=== PATIENT | male | born 1960 | race Two or more races ===

== ENCOUNTER 2020-03-29 17:06 | Inpatient (IN) | payer SELFPAY ==
[~2020-03-29] VITALS: Ht 170.2 cm; Wt 88.5 kg
--- NOTE | 2020-03-29 10:16 | NUR ---
NURSE NOTES: Contacted Dr. Gleason for admission orders; relayed pt status, abnormal labs, and ER meds given; awaiting MD response.
[2020-03-29 17:25] VITALS: BP 146/85
--- NOTE | 2020-03-29 17:25 | NUR ---
ED Nurse Note: Pt BIBA from home. He had tested + for COVID 10 days ago. Pt had SOB and was 78% RA in ambulance, and is 95% 10L NRB. Pt is alert and orientedx4, ambulatory. RR 26. Pt blood drawn and labs sent down. COVID test sent. EKG done.
[2020-03-29 17:38] LABS: HEMATOCRIT 44.7 % (42.0-52.0); HEMOGLOBIN 14.5 G/DL (14.2-18.0); MEAN CORPUSCULAR VOLUME 94 FL (80-99); PLATELET COUNT 213 K/UL (150-450); RED BLOOD COUNT 4.75 M/UL (4.70-6.10); RED CELL DISTRIBUTION WIDTH 14.3 % (11.6-14.8); WHITE BLOOD COUNT 11.6 K/UL (4.8-10.8)
[2020-03-29 17:41] LABS: BASOPHILS % (AUTO) 0.2 % (0.0-2.0); LYMPHOCYTES % (AUTO) 9.6 % (20.0-45.0); MONOCYTES % (AUTO) 4.6 % (1.0-10.0); NEUTROPHILS % (AUTO) 85.5 % (45.0-75.0)
[2020-03-29 18:12] LABS: ALANINE AMINOTRANSFERASE 69 U/L (12-78); ALBUMIN 2.3 G/DL (3.4-5.0); ALBUMIN/GLOBULIN RATIO 0.4 (1.0-2.7); ALKALINE PHOSPHATASE 99 U/L (46-116); ASPARTATE AMINO TRANSFERASE 94 U/L (15-37); BILIRUBIN,TOTAL 0.6 MG/DL (0.2-1.0); BLOOD UREA NITROGEN 11 mg/dL (7-18); CALCIUM 8.9 MG/DL (8.5-10.1); CHLORIDE 93 MMOL/L (98-107); FERRITIN 394 NG/ML (8-388); LACTATE DEHYDROGENASE 397 U/L (81-234); POTASSIUM 4.3 MMOL/L (3.5-5.1); SODIUM 130 MMOL/L (136-145)
[2020-03-29] MEDS ORDERED: cefTRIAXone 1 GM in NS 55 ML IV ONE (18:15)
[2020-03-29] MEDS ORDERED: Azithromycin 500 MG in NS 275 ML IVPB ONE (18:15)
[2020-03-29] MEDS ORDERED: dexAMETHasone 10mg/ml Inj IV ONE (18:15)
[2020-03-29] MEDS ORDERED: Enoxaparin 40mg Inj SUBQ ONE (18:15)
[2020-03-29 18:23] LABS: CARBON DIOXIDE 27 MMOL/L (21-32)
--- NOTE | 2020-03-29 19:06 | NUR ---
contact info Jorge L Noe [phone]
--- NOTE | 2020-03-29 19:22 | NUR ---
HAND-OFF: Report given to Leeanne CANALES.
--- NOTE | 2020-03-29 19:35 | NUR ---
ED Nurse Note: Recieved report from gonzalez Ceja to resume care, pt in bed in Covid isolation awake, alert and oriented x 4, pt is on cardiac monitoring, has patent IV line in left ac with IV antibiotics infusing, tolerating well, pt is on 10L NRB mask with 02 sat =97%, sob noted on exertion and when speaking, pt is able to move about, denies chest pain or any pain, pt is waiting for room for hospital admission, will resume care as ordered with close continuous monitoring.
--- NOTE | 2020-03-29 19:35 | Emergency Room Report ---
History of Present Illness General Chief Complaint: Dyspnea/Respdistress Source: Patient Present Illness HPI 59-year-old male presents for shortness of breath. Brought in by EMS from home. Tested positive for Covid previously. Short of breath for the last 4 days. Hypoxic on room air. Placed on nonrebreather. States he has a cough. Denies chest pain. No other aggravating relieving factors. 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 COVID-19 Screening: Positive COVID-19 COVID-19 Testing Source: NASAL Patient History Past Medical History: DM Past Surgical History: none Pertinent Family History: none Social History: Denies: smoking, alcohol use, drug use Immunizations: UTD Reviewed Nursing Documentation: PMH: Agreed; PSxH: Agreed Nursing Documentation-PMH Hx Diabetes: Yes Review of Systems All Other Systems: negative except mentioned in HPI Physical Exam Vital Signs Date Time Temp Pulse Resp B/P (MAP) Pulse Ox O2 Delivery O2 Flow Rate FiO2 03/29/20 17:00 98.4 94 18 190/106 (134) 96 Non-Rebreather 15.0 03/29/20 17:25 96 Sp02 EP Interpretation: reviewed, normal General Appearance: alert, GCS 15, non-toxic, mild distress Head: normocephalic, atraumatic Eyes: bilateral eye normal inspection, bilateral eye PERRL ENT: hearing grossly normal, normal pharynx, no angioedema, normal voice Neck: full range of motion, supple/symm/no masses Respiratory: chest non-tender, normal breath sounds, crackles, speaking full sentences Cardiovascular #1: regular rate, rhythm, no edema Cardiovascular #2: 2+ carotid (R), 2+ carotid (L), 2+ radial (R), 2+ radial (L), 2+ dorsalis pedis (R), 2+ dorsalis pedis (L) Gastrointestinal: normal bowel sounds, non tender, soft, non-distended, no guarding, no rebound Rectal: deferred Genitourinary: normal inspection, no CVA tenderness Musculoskeletal: back normal, normal range of motion, gait/station normal, non- tender Neurologic: alert, motor strength/tone normal, oriented x3, sensory intact, res ponsive, speech normal Psychiatric: judgement/insight normal, memory normal, mood/affect normal, no suicidal/homicidal ideation Reflexes: 3+ bicep (R), 3+ bicep (L), 3+ tricep (R), 3+ tricep (L), 3+ knee (R), 3+ knee (L) Skin: other - see nursing notes Lymphatic: no adenopathy Procedures Critical Care Time Critical Care Time i. I feel this is a highly complex case requiring extensive working including EKG/Rhythm strip, Xray/CT/US, Blood/urine lab work, repeat exams while in ED, and administration of strong opiates/narcotics for pain control, admission to hospital or close patient follow up. Total time: 45 min bedside evaluation and treatment excludes procedures (EKG). Reason for critical care: Hypoxia, Covid positive, respiratory distress Possible complications: hypotension, hypertension, IL, shock, arrhythmias, metabolic acidosis, end organ damage, respiratory failure. Interventions: Labs, EKG, chest x-ray, Decadron, Lovenox, antibiotics, nonrebreather, reassessment of vitals Course: Patient presenting with hypoxia, shortness of breath. Covid positive. Chest x-ray shows bilateral patchy opacities. O2 sats improved on n onrebreather. Given Decadron. Given Lovenox. Given broad-spectrum antibiotics. O2 sats improved. Patient resting comfortably Consultations: nursing staff, EMS, family Performed by: Dr Martin Tolerated well condition = serious j. because of unstable vital signs this patient had a condition that could potentially threaten life or limb. I feel this is a critical patient who required my full attention while patient was considered critical. Total Critical Care Time excluding procedures was greater than 45 minutes Medical Decision Making Diagnostic Impression: Primary Impression: COVID-19 Additional Impressions: Pneumonia Qualified Codes: J18.9 - Pneumonia, unspecified organism Respiratory distress ER Course Hospital Course 59-year-old male presents with hypoxia. Covid positive Differential diagnoses include: Pneumonia, CHF exacerbation, pneumothorax, fluid overload Clinical course Patient placed on stretcher. In isolation. I wore full PPE. On cardiac cath tech with hypoxia on room . After initial history and physical, I ordered labs, IV fluids, EKG, chest x-ray, blood cultures, UA. Patient placed on nonrebreather with O2 saturation improving Labs -leukocytosis noted, hemoglobin/hematocrit stable, electrolytes okay D- dimer elevated, inflammatory markers elevated EKGnormal sinus rhythm no acute ischemic changes interpreted by me CXR -bilateral patchy opacities Patient resting comfortably on nonrebreather. No tachypnea. No signs of distress. Given Lovenox. Given Decadron. Given broad-spectrum antibiotics Case discussed with Dr. Mike and he agreed to the patient to his service for further care and support I feel this is a highly complex case requiring extensive working including EKG/Rhythm strip, Xray/CT/US, Blood/urine lab work, repeat exams while in ED, and administration of strong opiates/narcotics for pain control, admission to hospital or close patient follow up. Diagnosis -COVID-19, pneumonia, respiratory distress Patient admitted to telemetry in serious condition Laboratory Tests Test 03/29/20 17:22 03/29/20 19:00 White Blood Count 11.6 K/UL (4.8-10.8) H Red Blood Count 4.75 M/UL (4.70-6.10) Hemoglobin 14.5 G/DL (14.2-18.0) Hematocrit 44.7 % (42.0-52.0) Mean Corpuscular Volume 94 FL (80-99) Mean Corpuscular Hemoglobin 30.5 PG (27.0-31.0) Mean Corpuscular Hemoglobin Concent 32.4 G/DL (32.0-36.0) Red Cell Distribution Width 14.3 % (11.6-14.8) Platelet Count 213 K/UL (150-450) Mean Platelet Volume 7.7 FL (6.5-10.1) Neutrophils (%) (Auto) 85.5 % (45.0-75.0) H Lymphocytes (%) (Auto) 9.6 % (20.0-45.0) L Monocytes (%) (Auto) 4.6 % (1.0-10.0) Eosinophils (%) (Auto) 0.0 % (0.0-3.0) Basophils (%) (Auto) 0.2 % (0.0-2.0) Prothrombin Time 11.4 SEC (9.30-11.50) Prothromb Time International Ratio 1.0 (0.9-1.1) Activated Partial Thromboplast Time 28 SEC (23-33) D-Dimer 0.95 mg/L FEU (0.00-0.49) H Sodium Level 130 MMOL/L (136-145) L Potassium Level 4.3 MMOL/L (3.5-5.1) Chloride Level 93 MMOL/L (98-107) L Carbon Dioxide Level 27 MMOL/L (21-32) Blood Urea Nitrogen 11 mg/dL (7-18) Creatinine 1.0 MG/DL (0.55-1.30) Estimat Glomerular Filtration Rate > 60 mL/min (>60) Glucose Level 143 MG/DL (74-106) H Lactic Acid Level 1.20 mmol/L (0.4-2.0) Calcium Level 8.9 MG/DL (8.5-10.1) Ferritin 394 NG/ML (8-388) H Total Bilirubin 0.6 MG/DL (0.2-1.0) Aspartate Amino Transf (AST/SGOT) 94 U/L (15-37) H Alanine Aminotransferase (ALT/SGPT) 69 U/L (12-78) Alkaline Phosphatase 99 U/L (46-116) Lactate Dehydrogenase 397 U/L (81-234) H Troponin I 0.000 ng/mL (0.000-0.056) C-Reactive Protein, Quantitative 27.3 mg/dL (0.00-0.90) H Pro-B-Type Natriuretic Peptide 121 pg/mL (0-125) Total Protein 8.1 G/DL (6.4-8.2) Albumin 2.3 G/DL (3.4-5.0) L Globulin 5.8 g/dL Albumin/Globulin Ratio 0.4 (1.0-2.7) L Lipase 346 U/L (73-393) Urine Color Pending Urine Appearance Pending Urine pH Pending Urine Specific [place] Pending Urine Protein Pending Urine Glucose (UA) Pending Urine Ketones Pending Urine Blood Pending Urine Nitrite Pending Urine Bilirubin Pending Urine Urobilinogen Pending Urine Leukocyte Esterase Pending EKG Diagnostic Results Troponin ordered: Yes Rate: normal Rhythm: NSR ST Segments: no acute changes ASA given to the pt in ED: No Rhythm Strip Diag. Results EP Interpretation: yes Rhythm: NSR, no PVC's, no ectopy Chest X-Ray Diagnostic Results Chest X-Ray Diagnostic Results : Chest X-Ray Ordered: Yes # of Views/Limited/Complete: 1 View Indication: Shortness of Breath EP Interpretation: Yes Interpretation: no effusion, no pneumothorax, other - Bilateral patchy opacities Impression: Other - COVID pneumonia Electronically Signed by: Electronically signed by Jean-Paul Martin MD Last Vital Signs Date Time Temp Pulse Resp B/P (MAP) Pulse Ox O2 Delivery O2 Flow Rate FiO2 03/29/20 17:25 98.4 92 26 146/85 96 Non-Rebreather 10.0 03/29/20 17:25 96 Status: improved Disposition: ADMITTED INPATIENT Condition: Serious Referrals: NOT CHOSEN IPA/,REFERRING (PCP) Jean-Paul Martin MD Mar 29, 2020 19:34
[2020-03-29 19:45] VITALS: BP 129/90
[2020-03-29 20:25] LABS: APPEARANCE,URINE CLEAR; BILIRUBIN, URINE NEGATIVE (NEGATIVE); GLUCOSE, URINE (UA) NEGATIVE (NEGATIVE); KETONES,URINE NEGATIVE (NEGATIVE); LEUKOCYTE ESTERASE ,URINE NEGATIVE (NEGATIVE); NITRITE,URINE NEGATIVE (NEGATIVE); PH,URINE 7 (4.5-8.0); PROTEIN,URINE 3+ (NEGATIVE); UROBILINOGEN,URINE 4 MG/DL (0.0-1.0)
[2020-03-29 20:28] LABS: COLOR,URINE YELLOW
--- NOTE | 2020-03-29 20:36 | NUR ---
NURSE NOTES: Received report from ALLY Fallon from ER; admitted from home; COVID + 10 days ago; PCR swab done @ ER today; awaiting results; AOX4, on Non-rebreather mask 10L with O2 sat 96%; With IV site on R AC 18 gauge, intact and patent saline locked; sinus rhythm; awaiting to receive pt.
--- NOTE | 2020-03-29 20:55 | NUR ---
ED Nurse Note: Pt has room ready for admission, resport called to floor nurse, pt belongings completed and signed, pt has all belongings with him, pt is awake and alert, IV site intact and patent, fluids completed, pt denies chest pain or any pain, remains on 02 10L via NRB mask and Covid Isolation precautions, pt taken to unit via lizzy with RN, ER-Tech and with ACLP protocols, nad noted during pt transport.
[2020-03-29 21:00] VITALS: BP_SYST 134; BP_SYST 141; BP_DIAS 69; BP_DIAS 77
--- NOTE | 2020-03-29 21:00 | NUR ---
NURSE NOTES: Received pt from ER with 2 staff via [facility]; pt able to transfer via supervision from [facility] to bed; On O2 therapy via non-rebreather mask 10L, in no acute distress; AOX4, hungarian speaking with some Irish; denies any pain nor discomfort; belongings accounted for; cellphone and museum exhibit technician at bedside; telemetry monitor placed, sinus rhythm; with peripheral IV site on R and L AC 18 gauge, s/l, both intact and patent; pt verbalized he wants to be full code; per pt he ambulates; continent using urinal; skin intact; HOB elevated; v/s: 100.8z-60-83-134/77-95% O2 saturation. Call light within reach; bed locked and in low position; side rails x 2; will continue to monitor.
--- NOTE | 2020-03-29 22:18 | NUR ---
NURSE NOTES: Received admission orders from Dr. Gleason; regular diet, routine and PRN medications, IV NS @ 70 ml/hr, carried out; will continue to monitor pt.
[2020-03-30] VITALS: BP 120/77
[2020-03-30] MEDS ORDERED: Enoxaparin 80mg Inj SUBQ SCH (03:00)
[2020-03-30 04:00] VITALS: BP 133/82
[2020-03-30] MEDS: NovoLOG Insulin Flexpen SUBQ SCH ×4 (06:20→21:24)
[2020-03-30] MEDS ORDERED: NovoLOG Insulin Flexpen SUBQ SCH (06:30)
--- NOTE | 2020-03-30 07:00 | NUR ---
NURSE HAND-OFF REPORT: Important Events on Shift: admitted from ER 2100 FOR covid+, PNA, hypoxia; IV site R and L AC 18 gauge; R AC infusing with IV NS @ 70ML/HR, L AC s/l; accuchecks ACHS with s/s coverage Novolog; non-rebreather 10L saturating 95% Patient Status: AOX4, Hungarian speaking Diet: Regular Pending Orders: N Pending Results/Labs:CXR Pending MD notification:N Latest Vital Signs: Temperature 96.8 , Pulse 68 , B/P 133 /82 , Respiratory Rate 28 , O2 SAT 95 , Non-Rebreather, O2 Flow Rate 10.0 . Vital Sign Comment: stable EKG Rhythm: Sinus Rhythm Rhythm change?: N MD Notified?: - MD Response: Latest Park Fall Score: 20 Fall Risk: Low Risk Safety Measures: Call light Within Reach, Bed Alarm Zone 1, Side Rails Side Rails x2, Bed position Low and Locked. Fall Precautions: Yellow Socks Yellow Gown Patient Fall Education Report given to ALLY Franklin.
--- NOTE | 2020-03-30 07:30 | NUR ---
NURSE NOTES: Received report from ALLY Amador. Pt is stable and resting in bed. Sitting high fowlers eating breakfast independently. Pt on NRB at 10 LPM with no s/s or complaint of distress at this time. Pt RAC 18g, running N at 70cc, asymptomatic and intact. LAC 18, asymptomatic and intact. Pt bed low and locked, call light in reach and bed alarm on. pt verbalized understanding to call for help.
[2020-03-30 08:00] VITALS: BP 144/85
[2020-03-30] MEDS ORDERED: Enoxaparin 40mg Inj SUBQ SCH (09:00)
[2020-03-30] MEDS: Ascorbic Acid 500mg tab ORAL SCH (09:12)
[2020-03-30] MEDS: Vitamin D 1000 units Tab ORAL SCH (09:12)
[2020-03-30] MEDS: Zinc Sulfate 220mg ORAL SCH (09:12)
--- NOTE | 2020-03-30 09:19 | NUR ---
CASE MANAGEMENT:REVIEW 59 YR OLD MALE BIBA FROM HOME PMH: TESTED POSITIVE FOR COVID CC: SOB X4 DAYS SI: COVID PNA. RESPIRATORY DISTRESS 100.1 94 18 190/106 96% ON 15L NRB WBC+11.6 NA-130 GLUCOSE+143 IS: IV AZITHROMYCIN X1 IV DECADRON X1 IV ROCEPHIN X1 LOVENOX SQ X1 BLOOD CX CHEST XRAY : TO TELEMETRY STATUS DCP: FROM HOME
[2020-03-30] MEDS: Enoxaparin 80mg Inj SUBQ SCH ×2 (09:26→20:16)
--- NOTE | 2020-03-30 09:38 | NUR ---
NURSE NOTES: Pt ambulated to bathroom w/ assist. SOB at rest and SOB on E. Pt slow to return to optimal oxygenation. 83%-88%. Pt now on 15LPM NRB at 92% labored breathing. Md to be notified. Asked for ABG. awaiting page back.
[2020-03-30] MEDS ORDERED: MUCINEX600 MG PO (11:12)
[2020-03-30] MEDS ORDERED: VITAMIN D325 MC1 PO (11:12)
[2020-03-30 11:47] VITALS: BP 138/77
--- NOTE | 2020-03-30 14:14 | Diagnostic Imaging Report ---
Indication: Shortness of breath Technique: One view of the chest Comparison: none Findings: There are fairly extensive bilateral streaky and patchy infiltrates. The heart is borderline enlarged. The pleural spaces are clear. Impression: Bilateral infiltrates, likely multifocal pneumonia, quite possibly viral
[2020-03-30 16:00] VITALS: BP 133/76
[2020-03-30] MEDS ORDERED: Loading Dose:Remdesivir 200mg/NS 210ml IV SCH ×2 (17:00)
--- NOTE | 2020-03-30 17:49 | NUR ---
NURSE HAND-OFF REPORT: Important Events on Shift: NRB up to 15LPM// desaturates to mid 80s with amb, per Dr Smallwood ok to amb// on remdisivir Patient Status: fc, stable Diet: regular diet Pending Orders: Pending Results/Labs: Pending MD notification: Latest Vital Signs: Temperature 97.3 , Pulse 77 , B/P 133 /76 , Respiratory Rate 22 , O2 SAT 94 , Non-Rebreather, O2 Flow Rate 15.0 . Vital Sign Comment: EKG Rhythm: Sinus Rhythm Rhythm change?: N MD Notified?: - MD Response: Latest Park Fall Score: 20 Fall Risk: Low Risk Safety Measures: Call light Within Reach, Bed Alarm Zone 2, Side Rails Side Rails x2, Bed position Low and Locked. Fall Precautions: Yellow Socks Yellow Gown Door Sign Patient Fall Education Report to be given. Addendum: 03/30/20 at 1901 by Noemi Ruiz RN RN Pt is stable, report given to ALLY Dia
[2020-03-30] MEDS ORDERED: cefTRIAXone 1 GM in D5W 55 ML IVPB SCH (18:00)
--- NOTE | 2020-03-30 19:14 | NUR ---
NURSE NOTES: Pt received from ALLY Franklin. Pt is resting comfortably in bed and denies any pain. Pt is A/Ox4 and ambulatory with SOB upon exertion. Pt is on cardiac monitoring SR and asymptomatic. Pt has NRB 15 LPM sating well and desaturating upon exertion. Pt has RAC 18G running NS 70 ml/hr and LAC 18G SL both patent with skin dry and intact. Bed is locked and in lowest position with call light within reach. Will continue to monitor.
[2020-03-30 20:00] VITALS: BP 115/73
[2020-03-31] VITALS: BP 128/67
[2020-03-31] MEDS: Levemir Flexpen SUBQ SCH ×2 (00:30→21:16)
[2020-03-31 04:00] VITALS: BP 119/62
[2020-03-31] MEDS: NovoLOG Insulin Flexpen SUBQ SCH ×4 (05:10→21:17)
--- NOTE | 2020-03-31 06:43 | NUR ---
NURSE HAND-OFF REPORT: Important Events on Shift:Pt continued scheduled medications. Pt reports difficulty breathing with exertion. Patient Status: Stable Diet: Regular Pending Orders: Pending Results/Labs:AM Labs Pending MD notification: Latest Vital Signs: Temperature 96.8 , Pulse 64 , B/P 119 /62 , Respiratory Rate 24 , O2 SAT 90 , Non-Rebreather, O2 Flow Rate 15.0 . Vital Sign Comment: VSS EKG Rhythm: Sinus Rhythm Rhythm change?: N MD Notified?: - MD Response: Latest Park Fall Score: 20 Fall Risk: Low Risk Safety Measures: Call light Within Reach, Bed Alarm Zone 2, Side Rails Side Rails x2, Bed position Low and Locked. Fall Precautions: Yellow Socks Yellow Gown Door Sign Patient Fall Education Report given to ALLY Franklin.
[2020-03-31 06:59] LABS: HEMATOCRIT 42.7 % (42.0-52.0); HEMOGLOBIN 13.9 G/DL (14.2-18.0); MEAN CORPUSCULAR VOLUME 96 FL (80-99); PLATELET COUNT 268 K/UL (150-450); RED BLOOD COUNT 4.45 M/UL (4.70-6.10); RED CELL DISTRIBUTION WIDTH 14.8 % (11.6-14.8)
--- NOTE | 2020-03-31 06:59 | NUR ---
NURSE NOTES: Received report from ALLY Dia. Pt is stable and resting in bed, sleeping. 97%spo2, tachypnea. Pt on NRB at 15 LPM with no s/s or complaint of distress at this time. Pt RAC 18g, running N at 70cc, asymptomatic and intact. LAC 18, asymptomatic and intact. Pt bed low and locked, call light in reach and bed alarm on. pt verbalized understanding to call for help. Breakfast bedside for Pt.
[2020-03-31 07:11] LABS: ALANINE AMINOTRANSFERASE 51 U/L (12-78); ALBUMIN 1.9 G/DL (3.4-5.0); ALBUMIN/GLOBULIN RATIO 0.3 (1.0-2.7); ALKALINE PHOSPHATASE 80 U/L (46-116); ANION GAP 9 mmol/L (5-15); ASPARTATE AMINO TRANSFERASE 51 U/L (15-37); BILIRUBIN,TOTAL 0.2 MG/DL (0.2-1.0); BLOOD UREA NITROGEN 22 mg/dL (7-18); CALCIUM 8.6 MG/DL (8.5-10.1); CARBON DIOXIDE 25 MMOL/L (21-32); CHLORIDE 102 MMOL/L (98-107); CREATININE 0.9 MG/DL (0.55-1.30); SODIUM 136 MMOL/L (136-145)
[2020-03-31 08:00] VITALS: BP 114/72
[2020-03-31] MEDS: Ascorbic Acid 500mg tab ORAL SCH (08:01)
[2020-03-31] MEDS: Vitamin D 1000 units Tab ORAL SCH (08:02)
[2020-03-31] MEDS: Zinc Sulfate 220mg ORAL SCH (08:02)
[2020-03-31] MEDS: Enoxaparin 80mg Inj SUBQ SCH ×2 (08:05→20:22)
--- NOTE | 2020-03-31 10:00 | NUR ---
NURSE NOTES: Pt sitting up in chair with bedside table. Pt is stable on 15 LPM NRB, 97% spo2, 22-24RR. Pt belongings in reach, call light in reach. Verbalized understanding to call for help.
[2020-03-31 11:40] VITALS: BP 120/67
[2020-03-31] MEDS: guaiFENesin /DM 10ml syrup ORAL PRN (11:55)
--- NOTE | 2020-03-31 12:46 | Infectious Diseases Prog Note ---
Assessment/Plan Assessment/Plan A; Severe COVID19 pneumonia Hypoxemia DM Lymphocytopenia P: Continue Remdesivir Continue Dexamethasone Subjective ROS Limited/Unobtainable: No Respiratory: Reports: shortness of breath, dry cough Cardiovascular: Reports: chest pain Gastrointestinal/Abdominal: Reports: no symptoms Genitourinary: Reports: no symptoms Allergies: Coded Allergies: No Known Allergies (Unverified , 03/29/20) Objective Last 24 Hour Vital Signs Date Time Temp Pulse Resp B/P (MAP) Pulse Ox O2 Delivery O2 Flow Rate FiO2 03/31/20 11:40 98.6 71 21 120/67 (84) 98 03/31/20 09:00 Non-Rebreather 15.0 Non-Rebreather 15.0 03/31/20 08:00 98.6 66 23 114/72 (86) 91 03/31/20 08:00 61 03/31/20 04:00 64 03/31/20 04:00 96.8 68 24 119/62 (81) 90 03/31/20 00:00 65 03/31/20 00:00 97.3 65 22 128/67 (87) 92 03/30/20 21:00 Non-Rebreather 15.0 Non-Rebreather 15.0 03/30/20 20:00 73 03/30/20 20:00 97.3 66 24 115/73 (87) 91 03/30/20 16:00 77 03/30/20 16:00 97.3 72 22 133/76 (95) 94 Height (Feet): 5 Height (Inches): 7.00 Weight (Pounds): 195 HEENT: mucous membranes moist Respiratory/Chest: other Cardiovascular: normal rate Abdomen: soft, non tender Extremities: no edema Neurologic/Psychiatric: alert, oriented x 3, responsive Microbiology Date/Time Source Procedure Growth Status 03/29/20 17:22 Blood Blood Culture - Preliminary NO GROWTH AFTER 24 HOURS Resulted 03/29/20 17:07 Nasopharynx Coronavirus COVID-19 PCR (VANDANA) - Final Complete 03/29/20 17:07 Blood Blood Culture - Preliminary NO GROWTH AFTER 24 HOURS Resulted Laboratory Tests Test 03/30/20 15:57 03/30/20 17:00 03/30/20 20:39 03/31/20 04:50 POC Whole Blood Glucose 277 MG/DL (74-106) H 258 MG/DL (74-106) H Arterial Blood pH 7.440 (7.350-7.450) Arterial Blood Partial Pressure CO2 35.9 mmHg (35.0-45.0) Arterial Blood Partial Pressure O2 109.0 mmHg (75.0-100.0) H Arterial Blood HCO3 23.8 mmol/L (22.0-26.0) Arterial Blood Oxygen Saturation 97.9 % (95-100) Arterial Blood Base Excess 0.1 (-2-2) Eliazar Test Positive White Blood Count 14.0 K/UL (4.8-10.8) H Red Blood Count 4.45 M/UL (4.70-6.10) L Hemoglobin 13.9 G/DL (14.2-18.0) L Hematocrit 42.7 % (42.0-52.0) Mean Corpuscular Volume 96 FL (80-99) Mean Corpuscular Hemoglobin 31.2 PG (27.0-31.0) H Mean Corpuscular Hemoglobin Concent 32.6 G/DL (32.0-36.0) Red Cell Distribution Width 14.8 % (11.6-14.8) Platelet Count 268 K/UL (150-450) Mean Platelet Volume 7.3 FL (6.5-10.1) Neutrophils (%) (Auto) % (45.0-75.0) Lymphocytes (%) (Auto) % (20.0-45.0) Monocytes (%) (Auto) % (1.0-10.0) Eosinophils (%) (Auto) % (0.0-3.0) Basophils (%) (Auto) % (0.0-2.0) Differential Total Cells Counted 100 Neutrophils % (Manual) 91 % (45-75) H Lymphocytes % (Manual) 7 % (20-45) L Monocytes % (Manual) 2 % (1-10) Eosinophils % (Manual) 0 % (0-3) Basophils % (Manual) 0 % (0-2) Band Neutrophils 0 % (0-8) Platelet Estimate Adequate Platelet Morphology Normal Red Blood Cell Morphology Normal Sodium Level 136 MMOL/L (136-145) Potassium Level 5.0 MMOL/L (3.5-5.1) Chloride Level 102 MMOL/L (98-107) Carbon Dioxide Level 25 MMOL/L (21-32) Anion Gap 9 mmol/L (5-15) Blood Urea Nitrogen 22 mg/dL (7-18) H Creatinine 0.9 MG/DL (0.55-1.30) Estimat Glomerular Filtration Rate > 60 mL/min (>60) Glucose Level 164 MG/DL (74-106) H Hemoglobin A1c 8.4 % (4.3-6.0) H Calcium Level 8.6 MG/DL (8.5-10.1) Magnesium Level 2.5 MG/DL (1.8-2.4) H Total Bilirubin 0.2 MG/DL (0.2-1.0) Direct Bilirubin < 0.1 MG/DL (0.0-0.3) Aspartate Amino Transf (AST/SGOT) 51 U/L (15-37) H Alanine Aminotransferase (ALT/SGPT) 51 U/L (12-78) Alkaline Phosphatase 80 U/L (46-116) Total Protein 7.6 G/DL (6.4-8.2) Albumin 1.9 G/DL (3.4-5.0) L Globulin 5.7 g/dL Albumin/Globulin Ratio 0.3 (1.0-2.7) L Test 03/31/20 05:05 03/31/20 11:11 POC Whole Blood Glucose Pending 245 MG/DL (74-106) H Current Medications Medications (Trade) Dose Ordered Sig/Compa Route PRN Reason Start Time Stop Time Status Last Admin Dose Admin Acetaminophen (Tylenol) 650 mg Q4H PRN ORAL Mild Pain (Pain Scale 1-3) 03/29/20 22:45 04/28/20 22:44 Acetaminophen (Tylenol) 650 mg Q4H PRN ORAL Temp >100.5 03/29/20 22:45 04/28/20 22:44 Albuterol Sulfate (Proventil MDI) 2 puff Q4H PRN INH Shortness of Breath 03/31/20 07:00 06/29/20 06:59 Artificial Tears (Akwa-Tears) 2 drop Q2H PRN BOTH EYES Dry Eyes 03/31/20 07:00 04/30/20 06:59 Ascorbic Acid (Vitamin C) 500 mg DAILY ORAL 03/30/20 09:00 04/29/20 08:59 03/31/20 08:01 Dexamethasone Sodium Phosphate (Decadron 4mg/ml vial) 6 mg DAILY IVP 03/30/20 09:00 04/08/20 08:59 03/31/20 08:04 Dextrose (Dextrose 50%) 25 ml Q30M PRN IV Hypoglycemia 03/30/20 02:00 06/28/20 01:59 Dextrose (Dextrose 50%) 50 ml Q30M PRN IV Hypoglycemia 03/30/20 02:00 06/28/20 01:59 Enoxaparin Sodium (Lovenox) 80 mg Q12H SUBQ 03/30/20 09:00 06/28/20 08:59 03/31/20 08:05 Famotidine (Pepcid) 20 mg DAILY ORAL 03/30/20 09:00 06/28/20 08:59 03/31/20 08:02 Guaifenesin/ Dextromethorphan (Robitussin DM Syrup) 10 ml Q4H PRN ORAL For Cough 03/31/20 11:30 06/29/20 11:29 03/31/20 11:55 Insulin Aspart (NovoLOG) BEFORE MEALS AND HS SUBQ 03/30/20 06:30 06/28/20 06:29 03/31/20 11:27 Insulin Detemir (Levemir) 10 units BEDTIME SUBQ 03/31/20 00:30 06/29/20 00:29 03/31/20 00:30 Remdesivir 100 mg/ Sodium Chloride 250 ml @ 250 mls/hr Q24H IV 03/31/20 17:00 04/03/20 17:59 Sodium Chloride 1,000 ml @ 70 mls/hr [id number] IV 03/29/20 22:45 04/28/20 22:44 03/31/20 02:12 Vitamin D (Vitamin D) 1,000 unit DAILY ORAL 03/30/20 09:00 04/29/20 08:59 03/31/20 08:02 Zinc Sulfate (Zinc Sulfate) 220 mg DAILY ORAL 03/30/20 09:00 06/28/20 08:59 03/31/20 08:02 Jose Washington MD Mar 31, 2020 12:46
--- NOTE | 2020-03-31 13:00 | NUR ---
NURSE NOTES: Updated Pt son on pt condition. Son inquired health advise for his at this time. did NOT provide any medical advise at this time other than to seek medical attention as needed.
--- NOTE | 2020-03-31 13:20 | NUR ---
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
--- NOTE | 2020-03-31 13:23 | NUR ---
NURSE NOTES: Pt reports pain when breathing in. Notified Dr Mike, no new orders at this time.
[2020-03-31 16:00] VITALS: BP 131/67
[2020-03-31] MEDS: Maintenance Dose:Remdesivir 100mg/NS 230ml x 4 Doses IV SCH ×2 (16:00)
[2020-03-31] MEDS: Albuterol 90mcg Inhaler 8gm INH PRN (16:00)
--- NOTE | 2020-03-31 16:10 | NUR ---
CASE MANAGEMENT:REVIEW 03/31/20 SI: COVID PNA. RESPIRATORY DISTRESS 98.6 71 21 120/67 98% ON 15L/NRB WBC+14.0 BUN+22 IS: IV REMDESIVIR Q24 (/) IV DECADRON QD IVF@70/HR LEVEMIR SQ QHS LOVENOX SQ Q12 : TELEMETRY STATUS DCP: FROM HOME
--- NOTE | 2020-03-31 18:27 | NUR ---
NURSE HAND-OFF REPORT: Important Events on Shift: IV R hand 22g// pt reported pain at inhalation, reported to Dr Mike, [place] new orders// Patient Status: FC, stable Diet: regular diet Pending Orders: Pending Results/Labs: Pending MD notification: Latest Vital Signs: Temperature 97.5 , Pulse 71 , B/P 131 /67 , Respiratory Rate 22 , O2 SAT 95 , Non-Rebreather, O2 Flow Rate 15.0 . Vital Sign Comment: EKG Rhythm: Sinus Rhythm Rhythm change?: N MD Notified?: - MD Response: Latest Park Fall Score: 20 Fall Risk: Low Risk Safety Measures: Call light Within Reach, Bed Alarm Zone 2, Side Rails Side Rails x2, Bed position Low and Locked. Fall Precautions: Yellow Socks Yellow Gown Door Sign Patient Fall Education Report to be given. Addendum: 03/31/20 at 1917 by Noemi Ruiz RN RN Pt is stable, report given to ALLY Whitley.
--- NOTE | 2020-03-31 19:50 | NUR ---
NURSE NOTES: The patient is alert and oriented x4 [place] speaking and is presently on a non-rebreather mask @ 15 liters with SPo2 @ 93%. The patient need minimal care with his ADL's and can turn and re-position himself.The patient was noted with a Right AC 18g and right hand 22g that is patent and asymptomatic. The bed in lowest level, call light within easy reach and siderails up x2. Will continue ton monitor as indicated.
[2020-03-31 20:00] VITALS: BP 108/60
--- NOTE | 2020-03-31 23:25 | Cardiology Progress Note ---
Subjective DATE OF SERVICE: Mar 31, 2020 Still on high flow oxygen Cant sleep Glucose elevated on dexamethasone Objective Last 24 Hour Vital Signs Date Time Temp Pulse Resp B/P (MAP) Pulse Ox O2 Delivery O2 Flow Rate FiO2 03/31/20 21:00 Non-Rebreather 15.0 Non-Rebreather 15.0 03/31/20 20:00 69 03/31/20 20:00 98.6 66 17 108/60 (76) 95 03/31/20 16:00 62 03/31/20 16:00 97.5 71 22 131/67 (88) 95 03/31/20 12:00 62 03/31/20 11:40 98.6 71 21 120/67 (84) 98 03/31/20 09:00 Non-Rebreather 15.0 Non-Rebreather 15.0 03/31/20 08:00 98.6 66 23 114/72 (86) 91 03/31/20 08:00 61 03/31/20 04:00 64 03/31/20 04:00 96.8 68 24 119/62 (81) 90 03/31/20 00:00 65 03/31/20 00:00 97.3 65 22 128/67 (87) 92 HEENT: normal ENT inspection RHYTHM: NSR LUNGS: bilateral rhonchi CARDIAC: regular rhythm, normal S1 and S2 ABDOMEN: normal bowel sounds, non tender, other - obese EXTREMITIES: normal range of motion, non-tender, trace edema Laboratory Tests Test 03/31/20 04:50 03/31/20 05:05 03/31/20 11:11 03/31/20 15:59 White Blood Count 14.0 K/UL (4.8-10.8) H Red Blood Count 4.45 M/UL (4.70-6.10) L Hemoglobin 13.9 G/DL (14.2-18.0) L Hematocrit 42.7 % (42.0-52.0) Mean Corpuscular Volume 96 FL (80-99) Mean Corpuscular Hemoglobin 31.2 PG (27.0-31.0) H Mean Corpuscular Hemoglobin Concent 32.6 G/DL (32.0-36.0) Red Cell Distribution Width 14.8 % (11.6-14.8) Platelet Count 268 K/UL (150-450) Mean Platelet Volume 7.3 FL (6.5-10.1) Neutrophils (%) (Auto) % (45.0-75.0) Lymphocytes (%) (Auto) % (20.0-45.0) Monocytes (%) (Auto) % (1.0-10.0) Eosinophils (%) (Auto) % (0.0-3.0) Basophils (%) (Auto) % (0.0-2.0) Differential Total Cells Counted 100 Neutrophils % (Manual) 91 % (45-75) H Lymphocytes % (Manual) 7 % (20-45) L Monocytes % (Manual) 2 % (1-10) Eosinophils % (Manual) 0 % (0-3) Basophils % (Manual) 0 % (0-2) Band Neutrophils 0 % (0-8) Platelet Estimate Adequate Platelet Morphology Normal Red Blood Cell Morphology Normal Sodium Level 136 MMOL/L (136-145) Potassium Level 5.0 MMOL/L (3.5-5.1) Chloride Level 102 MMOL/L (98-107) Carbon Dioxide Level 25 MMOL/L (21-32) Anion Gap 9 mmol/L (5-15) Blood Urea Nitrogen 22 mg/dL (7-18) H Creatinine 0.9 MG/DL (0.55-1.30) Estimat Glomerular Filtration Rate > 60 mL/min (>60) Glucose Level 164 MG/DL (74-106) H Hemoglobin A1c 8.4 % (4.3-6.0) H Calcium Level 8.6 MG/DL (8.5-10.1) Magnesium Level 2.5 MG/DL (1.8-2.4) H Total Bilirubin 0.2 MG/DL (0.2-1.0) Direct Bilirubin < 0.1 MG/DL (0.0-0.3) Aspartate Amino Transf (AST/SGOT) 51 U/L (15-37) H Alanine Aminotransferase (ALT/SGPT) 51 U/L (12-78) Alkaline Phosphatase 80 U/L (46-116) Total Protein 7.6 G/DL (6.4-8.2) Albumin 1.9 G/DL (3.4-5.0) L Globulin 5.7 g/dL Albumin/Globulin Ratio 0.3 (1.0-2.7) L POC Whole Blood Glucose Pending 245 MG/DL (74-106) H 225 MG/DL (74-106) H Test 03/31/20 20:15 POC Whole Blood Glucose 178 MG/DL (74-106) H Microbiology Date/Time Source Procedure Growth Status 03/29/20 17:22 Blood Blood Culture - Preliminary NO GROWTH AFTER 24 HOURS Resulted 03/29/20 17:07 Nasopharynx Coronavirus COVID-19 PCR ([facility]) - Final Complete 03/29/20 17:07 Blood Blood Culture - Preliminary NO GROWTH AFTER 24 HOURS Resulted Assessment/Plan Assessment/Plan Covid 19 PNA Hypoxia Diabetes mellitus exacerbated by steroids See orders Raul Mike MD Mar 31, 2020 23:25
[2020-04-01] VITALS: BP 113/64
[2020-04-01 04:00] VITALS: BP 122/74
--- NOTE | 2020-04-01 04:24 | NUR ---
NURSE NOTES: The patient remained on a non-rebreather @ 15 liters well tolerated. He is cooperative with his care and doesn't appear to be in any active distress at this time. Will continue to monitor
--- NOTE | 2020-04-01 05:08 | Cardiology Report ---
APPROVED REPORT EKG Measurement Heart [id number] VT [id number] <Conclusion> Sinus rhythm with premature atrial complexes Otherwise normal ECG
[2020-04-01] MEDS: NovoLOG Insulin Flexpen SUBQ SCH ×4 (06:11→20:48)
[2020-04-01] MEDS: Levemir Flexpen SUBQ SCH ×2 (06:11→20:47)
[2020-04-01] MEDS: guaiFENesin /DM 10ml syrup ORAL PRN ×2 (06:14→20:42)
--- NOTE | 2020-04-01 06:54 | NUR ---
NURSE HAND-OFF REPORT: Important Events on Shift:Remained on non-rebrether. Patient Status: Diet: Pending Orders: Pending Results/Labs: Pending MD notification: Latest Vital Signs: Temperature 97.9 , Pulse 72 , B/P 122 /74 , Respiratory Rate 21 , O2 SAT 96 , Non-Rebreather, O2 Flow Rate 15.0 . Vital Sign Comment: EKG Rhythm: Sinus Rhythm Rhythm change?: N MD Notified?: - MD Response: Latest Park Fall Score: 20 Fall Risk: Low Risk Safety Measures: Call light Within Reach, Bed Alarm Zone 2, Side Rails Side Rails x2, Bed position Low and Locked. Fall Precautions: Yellow Socks Yellow Gown Door Sign Patient Fall Education Report given to .
--- NOTE | 2020-04-01 07:00 | NUR ---
NURSE NOTES: Received patient in bed awake. Non rebreather mask at 15LPM in place, complaining of SOB. IV lines intact and patent, IV of NS x 70cc/hr infusing well. HOB elevated. Bed locked in low position. Call light within reach. Will continue plan of care.
[2020-04-01 07:34] LABS: HEMATOCRIT 41.3 % (42.0-52.0); HEMOGLOBIN 13.2 G/DL (14.2-18.0); MEAN CORPUSCULAR VOLUME 96 FL (80-99); PLATELET COUNT 303 K/UL (150-450); WHITE BLOOD COUNT 12.3 K/UL (4.8-10.8)
[2020-04-01 07:58] VITALS: BP 122/72
[2020-04-01 08:10] LABS: ALANINE AMINOTRANSFERASE 39 U/L (12-78); ALBUMIN 1.9 G/DL (3.4-5.0); ALBUMIN/GLOBULIN RATIO 0.4 (1.0-2.7); ALKALINE PHOSPHATASE 73 U/L (46-116); ANION GAP 8 mmol/L (5-15); ASPARTATE AMINO TRANSFERASE 42 U/L (15-37); BILIRUBIN,DIRECT 0.2 MG/DL (0.0-0.3); BILIRUBIN,TOTAL 0.2 MG/DL (0.2-1.0); BLOOD UREA NITROGEN 20 mg/dL (7-18); CALCIUM 8.6 MG/DL (8.5-10.1); CARBON DIOXIDE 26 MMOL/L (21-32); CHLORIDE 107 MMOL/L (98-107); CREATININE 0.9 MG/DL (0.55-1.30); POTASSIUM 3.8 MMOL/L (3.5-5.1); SODIUM 141 MMOL/L (136-145)
[2020-04-01] MEDS: Ascorbic Acid 500mg tab ORAL SCH (08:27)
[2020-04-01] MEDS: Zinc Sulfate 220mg ORAL SCH (08:27)
[2020-04-01] MEDS: Vitamin D 1000 units Tab ORAL SCH (08:27)
[2020-04-01] MEDS: Enoxaparin 80mg Inj SUBQ SCH ×2 (08:30→20:44)
--- NOTE | 2020-04-01 08:56 | NUR ---
RADIOLOGY DEPT., CHEST X-RAY DONE-P.DYE
--- NOTE | 2020-04-01 09:29 | NUR ---
CASE MANAGEMENT:REVIEW 04/01/20 SI: COVID PNA. RESPIRATORY DISTRESS 96.6 69 24 122/72 98% ON 15L/NRB WBC+12.3 H/H-13.2/41.3 BUN+20 IS: IV REMDESIVIR Q24 (05/06) IV DECADRON QD IVF@70/HR LEVEMIR SQ QHS LOVENOX SQ Q12 ZINC PO QD VIT C PO QD VIT D PO QD : TELEMETRY STATUS DCP: FROM HOME
--- NOTE | 2020-04-01 09:55 | NUR ---
NURSE NOTES: Patient complaining of chest pain when breathing, Dr Gleason made aware, EKG done as ordered and sent, no new orders made. PRN medication given. Will continue to monitor.
--- NOTE | 2020-04-01 11:17 | Infectious Diseases Prog Note ---
Assessment/Plan Assessment/Plan antibiotics : remdesivir A 1. covid 19 pneumonia on 15 liters with 98 % saturation 2. diabetes mellitus P 1. continue remdesivir day 3 2. d/c dexamethasone 3. start solumedrol 4. continue isolation Subjective Constitutional: Denies: fever, chills Respiratory: Reports: shortness of breath, dry cough - mild Gastrointestinal/Abdominal: Denies: nausea, vomiting, diarrhea Musculoskeletal: Reports: pain - chest Allergies: Coded Allergies: No Known Allergies (Unverified , 03/29/20) Objective Last 24 Hour Vital Signs Date Time Temp Pulse Resp B/P (MAP) Pulse Ox O2 Delivery O2 Flow Rate FiO2 04/01/20 07:58 96.6 69 24 122/72 (89) 98 04/01/20 04:00 72 04/01/20 04:00 97.9 70 21 122/74 (90) 96 04/01/20 00:00 97.7 67 19 113/64 (80) 95 04/01/20 00:00 69 03/31/20 21:00 Non-Rebreather 15.0 Non-Rebreather 15.0 03/31/20 20:00 69 03/31/20 20:00 98.6 66 17 108/60 (76) 95 03/31/20 16:00 62 03/31/20 16:00 97.5 71 22 131/67 (88) 95 03/31/20 12:00 62 03/31/20 11:40 98.6 71 21 120/67 (84) 98 Height (Feet): 5 Height (Inches): 7.00 Weight (Pounds): 195 Microbiology Date/Time Source Procedure Growth Status 03/29/20 17:22 Blood Blood Culture - Preliminary NO GROWTH AFTER 48 HOURS Resulted 03/29/20 17:07 Nasopharynx Coronavirus COVID-19 PCR ([facility]) - Final Complete 03/29/20 17:07 Blood Blood Culture - Preliminary NO GROWTH AFTER 48 HOURS Resulted Laboratory Tests Test 03/31/20 11:11 03/31/20 15:59 03/31/20 20:15 04/01/20 05:46 POC Whole Blood Glucose 245 MG/DL (74-106) H 225 MG/DL (74-106) H 178 MG/DL (74-106) H 122 MG/DL (74-106) H Test 04/01/20 07:19 White Blood Count 12.3 K/UL (4.8-10.8) H Red Blood Count 4.30 M/UL (4.70-6.10) L Hemoglobin 13.2 G/DL (14.2-18.0) L Hematocrit 41.3 % (42.0-52.0) L Mean Corpuscular Volume 96 FL (80-99) Mean Corpuscular Hemoglobin 30.7 PG (27.0-31.0) Mean Corpuscular Hemoglobin Concent 32.0 G/DL (32.0-36.0) Red Cell Distribution Width 15.0 % (11.6-14.8) H Platelet Count 303 K/UL (150-450) Mean Platelet Volume 7.3 FL (6.5-10.1) Neutrophils (%) (Auto) % (45.0-75.0) Lymphocytes (%) (Auto) % (20.0-45.0) Monocytes (%) (Auto) % (1.0-10.0) Eosinophils (%) (Auto) % (0.0-3.0) Basophils (%) (Auto) % (0.0-2.0) Differential Total Cells Counted 100 Neutrophils % (Manual) 88 % (45-75) H Lymphocytes % (Manual) 10 % (20-45) L Monocytes % (Manual) 2 % (1-10) Eosinophils % (Manual) 0 % (0-3) Basophils % (Manual) 0 % (0-2) Band Neutrophils 0 % (0-8) Platelet Estimate Adequate Platelet Morphology Normal Anisocytosis 1+ Sodium Level 141 MMOL/L (136-145) Potassium Level 3.8 MMOL/L (3.5-5.1) Chloride Level 107 MMOL/L (98-107) Carbon Dioxide Level 26 MMOL/L (21-32) Anion Gap 8 mmol/L (5-15) Blood Urea Nitrogen 20 mg/dL (7-18) H Creatinine 0.9 MG/DL (0.55-1.30) Estimat Glomerular Filtration Rate > 60 mL/min (>60) Glucose Level 122 MG/DL (74-106) H Calcium Level 8.6 MG/DL (8.5-10.1) Magnesium Level 2.4 MG/DL (1.8-2.4) Total Bilirubin 0.2 MG/DL (0.2-1.0) Direct Bilirubin 0.2 MG/DL (0.0-0.3) Aspartate Amino Transf (AST/SGOT) 42 U/L (15-37) H Alanine Aminotransferase (ALT/SGPT) 39 U/L (12-78) Alkaline Phosphatase 73 U/L (46-116) C-Reactive Protein, Quantitative 9.0 mg/dL (0.00-0.90) H Pro-B-Type Natriuretic Peptide 142 pg/mL (0-125) H Total Protein 7.1 G/DL (6.4-8.2) Albumin 1.9 G/DL (3.4-5.0) L Globulin 5.2 g/dL Albumin/Globulin Ratio 0.4 (1.0-2.7) L Current Medications Medications (Trade) Dose Ordered Sig/Compa Route PRN Reason Start Time Stop Time Status Last Admin Dose Admin Acetaminophen (Tylenol) 650 mg Q4H PRN ORAL Mild Pain (Pain Scale 1-3) 03/29/20 22:45 04/28/20 22:44 04/01/20 08:27 Acetaminophen (Tylenol) 650 mg Q4H PRN ORAL Temp >100.5 03/29/20 22:45 04/28/20 22:44 Albuterol Sulfate (Proventil MDI) 2 puff Q4H PRN INH Shortness of Breath 03/31/20 07:00 06/29/20 06:59 03/31/20 16:00 Artificial Tears (Akwa-Tears) 2 drop Q2H PRN BOTH EYES Dry Eyes 03/31/20 07:00 04/30/20 06:59 03/31/20 16:00 Ascorbic Acid (Vitamin C) 500 mg DAILY ORAL 03/30/20 09:00 04/29/20 08:59 04/01/20 08:27 Dexamethasone Sodium Phosphate (Decadron 4mg/ml vial) 6 mg DAILY IVP 03/30/20 09:00 04/08/20 08:59 04/01/20 08:28 Dextrose (Dextrose 50%) 25 ml Q30M PRN IV Hypoglycemia 03/30/20 02:00 06/28/20 01:59 Dextrose (Dextrose 50%) 50 ml Q30M PRN IV Hypoglycemia 03/30/20 02:00 06/28/20 01:59 Enoxaparin Sodium (Lovenox) 80 mg Q12H SUBQ 03/30/20 09:00 06/28/20 08:59 04/01/20 08:30 Famotidine (Pepcid) 20 mg DAILY ORAL 03/30/20 09:00 06/28/20 08:59 04/01/20 08:27 Guaifenesin/ Dextromethorphan (Robitussin DM Syrup) 10 ml Q4H PRN ORAL For Cough 03/31/20 11:30 06/29/20 11:29 04/01/20 06:14 Insulin Aspart (NovoLOG) BEFORE MEALS AND HS SUBQ 03/30/20 06:30 06/28/20 06:29 03/31/20 21:17 Insulin Detemir (Levemir) 6 units ACBREAKFAST SUBQ 04/01/20 06:30 06/30/20 06:29 04/01/20 06:11 Insulin Detemir (Levemir) 10 units BEDTIME SUBQ 03/31/20 00:30 06/29/20 00:29 03/31/20 21:16 Remdesivir 100 mg/ Sodium Chloride 250 ml @ 250 mls/hr Q24H IV 03/31/20 17:00 04/03/20 17:59 03/31/20 16:00 Sodium Chloride 1,000 ml @ 70 mls/hr [id number] IV 03/29/20 22:45 04/28/20 22:44 04/01/20 08:23 Vitamin D (Vitamin D) 1,000 unit DAILY ORAL 03/30/20 09:00 04/29/20 08:59 04/01/20 08:27 Zinc Sulfate (Zinc Sulfate) 220 mg DAILY ORAL 03/30/20 09:00 06/28/20 08:59 04/01/20 08:27 Breezy Kowalski MD Apr 01, 2020 11:17
[2020-04-01 11:37] VITALS: BP 129/67
[2020-04-01] MEDS: Solu-MEDROL 40mg Inj IVP SCH ×2 (12:04→20:42)
[2020-04-01] MEDS: Albuterol 90mcg Inhaler 8gm INH PRN (12:46)
--- NOTE | 2020-04-01 13:40 | Diagnostic Imaging Report ---
Indication: Reason For Exam: INFECT Technique: One view of the chest Comparison: 03/29/2020 Findings: Bilateral extensive infiltrates appear increased bilaterally. The heart is upper limits normal in size. Impression: Worsening bilateral infiltrates
[2020-04-01 16:00] VITALS: BP 130/76
[2020-04-01] MEDS: Maintenance Dose:Remdesivir 100mg/NS 230ml x 4 Doses IV SCH ×2 (17:30)
--- NOTE | 2020-04-01 19:23 | NUR ---
NURSE HAND-OFF REPORT: Important Events on Shift: Patient Status: alert, pleasant Diet: reg Pending Orders: Pending Results/Labs: Pending MD notification: Latest Vital Signs: Temperature 97.8 , Pulse 93 , B/P 130 /76 , Respiratory Rate 24 , O2 SAT 97 , Non-Rebreather, O2 Flow Rate 15.0 . Vital Sign Comment: EKG Rhythm: Sinus Rhythm Rhythm change?: N MD Notified?: - MD Response: Latest Park Fall Score: 20 Fall Risk: Low Risk Safety Measures: Call light Within Reach, Bed Alarm Zone 1, Side Rails Side Rails x2, Bed position Low and Locked. Fall Precautions: Yellow Socks Report given to Gutierrez RN.
--- NOTE | 2020-04-01 19:40 | NUR ---
NURSE NOTES: The patient remained alert and oriented x4 Citizen Of [place] speaking and is presently on a non-rebreather mask @ 15 liters with SPo2 @ 94%. The patient need minimal care with his ADL's and can turn and re-position himself.The patient was noted with a Right AC 18g and right hand 22g that is patent and asymptomatic. The bed in lowest level, call light within easy reach and siderails up x2. Will continue ton monitor as indicated.
[2020-04-01 20:00] VITALS: BP 116/64
[2020-04-02] VITALS: BP 124/78
--- NOTE | 2020-04-02 02:29 | Cardiology Progress Note ---
Subjective DATE OF SERVICE: Apr 01, 2020 Still on high flow oxygen Cant sleep - anxiolytic ordered Glucose elevated on steroids - but improving with insulin adjustments. Objective Last 24 Hour Vital Signs Date Time Temp Pulse Resp B/P (MAP) Pulse Ox O2 Delivery O2 Flow Rate FiO2 04/02/20 00:00 65 04/02/20 00:00 98.0 74 17 124/78 (93) 95 04/01/20 21:00 Non-Rebreather 15.0 Non-Rebreather 15.0 04/01/20 20:00 98.2 70 18 116/64 (81) 92 04/01/20 20:00 66 04/01/20 16:00 68 04/01/20 16:00 97.8 93 24 130/76 (94) 97 04/01/20 12:00 66 04/01/20 11:37 98.1 96 23 129/67 (87) 96 04/01/20 09:00 Non-Rebreather 15.0 Non-Rebreather 15.0 04/01/20 08:00 73 04/01/20 07:58 96.6 69 24 122/72 (89) 98 04/01/20 04:00 72 04/01/20 04:00 97.9 70 21 122/74 (90) 96 HEENT: normal ENT inspection RHYTHM: NSR LUNGS: bilateral rhonchi CARDIAC: regular rhythm, normal S1 and S2 ABDOMEN: normal bowel sounds, non tender, other - obese EXTREMITIES: normal range of motion, non-tender, trace edema Laboratory Tests Test 04/01/20 05:46 04/01/20 07:19 04/01/20 11:46 04/01/20 16:19 POC Whole Blood Glucose 122 MG/DL (74-106) H 101 MG/DL (74-106) 169 MG/DL (74-106) H White Blood Count 12.3 K/UL (4.8-10.8) H Red Blood Count 4.30 M/UL (4.70-6.10) L Hemoglobin 13.2 G/DL (14.2-18.0) L Hematocrit 41.3 % (42.0-52.0) L Mean Corpuscular Volume 96 FL (80-99) Mean Corpuscular Hemoglobin 30.7 PG (27.0-31.0) Mean Corpuscular Hemoglobin Concent 32.0 G/DL (32.0-36.0) Red Cell Distribution Width 15.0 % (11.6-14.8) H Platelet Count 303 K/UL (150-450) Mean Platelet Volume 7.3 FL (6.5-10.1) Neutrophils (%) (Auto) % (45.0-75.0) Lymphocytes (%) (Auto) % (20.0-45.0) Monocytes (%) (Auto) % (1.0-10.0) Eosinophils (%) (Auto) % (0.0-3.0) Basophils (%) (Auto) % (0.0-2.0) Differential Total Cells Counted 100 Neutrophils % (Manual) 88 % (45-75) H Lymphocytes % (Manual) 10 % (20-45) L Monocytes % (Manual) 2 % (1-10) Eosinophils % (Manual) 0 % (0-3) Basophils % (Manual) 0 % (0-2) Band Neutrophils 0 % (0-8) Platelet Estimate Adequate Platelet Morphology Normal Anisocytosis 1+ Sodium Level 141 MMOL/L (136-145) Potassium Level 3.8 MMOL/L (3.5-5.1) Chloride Level 107 MMOL/L (98-107) Carbon Dioxide Level 26 MMOL/L (21-32) Anion Gap 8 mmol/L (5-15) Blood Urea Nitrogen 20 mg/dL (7-18) H Creatinine 0.9 MG/DL (0.55-1.30) Estimat Glomerular Filtration Rate > 60 mL/min (>60) Glucose Level 122 MG/DL (74-106) H Calcium Level 8.6 MG/DL (8.5-10.1) Magnesium Level 2.4 MG/DL (1.8-2.4) Total Bilirubin 0.2 MG/DL (0.2-1.0) Direct Bilirubin 0.2 MG/DL (0.0-0.3) Aspartate Amino Transf (AST/SGOT) 42 U/L (15-37) H Alanine Aminotransferase (ALT/SGPT) 39 U/L (12-78) Alkaline Phosphatase 73 U/L (46-116) C-Reactive Protein, Quantitative 9.0 mg/dL (0.00-0.90) H Pro-B-Type Natriuretic Peptide 142 pg/mL (0-125) H Total Protein 7.1 G/DL (6.4-8.2) Albumin 1.9 G/DL (3.4-5.0) L Globulin 5.2 g/dL Albumin/Globulin Ratio 0.4 (1.0-2.7) L Test 04/01/20 20:29 POC Whole Blood Glucose 246 MG/DL (74-106) H Assessment/Plan Assessment/Plan Covid 19 PNA Hypoxia Diabetes mellitus exacerbated by steroids No clinical signs of CHF; BNP normal range. Orders and POC updated. Raul Mike MD Apr 02, 2020 02:29
[2020-04-02 04:00] VITALS: BP 129/74
--- NOTE | 2020-04-02 05:10 | NUR ---
NURSE NOTES: The patient remained on a non-rebreather @15 liters with Spo2 @ 94%. He was cooperative with his care and sleet for about 8 hrs. Will continue to monitor as indicated.
[2020-04-02] MEDS: NovoLOG Insulin Flexpen SUBQ SCH ×4 (06:30→21:53)
[2020-04-02] MEDS: Levemir Flexpen SUBQ SCH ×2 (06:33→21:52)
--- NOTE | 2020-04-02 06:50 | NUR ---
NURSE HAND-OFF REPORT: Important Events on Shift:Alert and cooperative with his care. Remained on non-rebrether @ 15 liters well tolerated Patient Status: Diet: Pending Orders: Pending Results/Labs: Pending MD notification: Latest Vital Signs: Temperature 97.5 , Pulse 63 , B/P 129 /74 , Respiratory Rate 21 , O2 SAT 94 , Non-Rebreather, O2 Flow Rate 15.0 . Vital Sign Comment: EKG Rhythm: Sinus Rhythm Rhythm change?: N MD Notified?: - MD Response: Latest Park Fall Score: 20 Fall Risk: Low Risk Safety Measures: Call light Within Reach, Bed Alarm Zone 1, Side Rails Side Rails x2, Bed position Low and Locked. Fall Precautions: Yellow Socks Report given to .
--- NOTE | 2020-04-02 07:25 | NUR ---
NURSE NOTES: pt report received from morena CANALES. pt conditions remains unchanged. pt is alert and oriented times 3, able to follow simple commands. pt is sating 98% O2 on room air, no other acute resp distress noted. pt is on library monitor showing NSR, no abnormalities to heart rhythm. pt bed is low, locked, armed, call light within reach, will follow plan of care. Addendum: 04/03/20 at 0132 by DUTCH MORTON RN WRONG TIME.
--- NOTE | 2020-04-02 07:45 | NUR ---
NURSE NOTES: Received report from ALLY Whitley. Patient observed to be awake, alert, and oriented x4. Seen lying in bed, with HOB elevated, currently on 15L NRB mask. Patient on contact and droplet isolation (+) covid. 2 IV access sites. RAC gauge 18 and RH gauge 22 running NS @ 70cc/hr. Both iv lines inplace , intact, and patent. Bed placed on lowest and locked, call light placed within reach and will continue to monitor for any changes in patient's condition.
[2020-04-02 08:00] VITALS: BP 134/71
[2020-04-02 08:02] LABS: HEMATOCRIT 40.2 % (42.0-52.0); HEMOGLOBIN 13.2 G/DL (14.2-18.0); MEAN CORPUSCULAR VOLUME 95 FL (80-99); PLATELET COUNT 318 K/UL (150-450); RED BLOOD COUNT 4.23 M/UL (4.70-6.10); WHITE BLOOD COUNT 10.6 K/UL (4.8-10.8)
[2020-04-02] MEDS: Ascorbic Acid 500mg tab ORAL SCH (08:14)
[2020-04-02] MEDS: Solu-MEDROL 40mg Inj IVP SCH ×2 (08:14→21:50)
[2020-04-02] MEDS: Zinc Sulfate 220mg ORAL SCH (08:14)
[2020-04-02] MEDS: Vitamin D 1000 units Tab ORAL SCH (08:14)
[2020-04-02] MEDS: Enoxaparin 80mg Inj SUBQ SCH ×2 (08:16→21:53)
[2020-04-02 08:28] LABS: ALANINE AMINOTRANSFERASE 43 U/L (12-78); ALBUMIN 1.8 G/DL (3.4-5.0); ALBUMIN/GLOBULIN RATIO 0.3 (1.0-2.7); ALKALINE PHOSPHATASE 75 U/L (46-116); ANION GAP 9 mmol/L (5-15); ASPARTATE AMINO TRANSFERASE 39 U/L (15-37); BILIRUBIN,DIRECT 0.1 MG/DL (0.0-0.3); BILIRUBIN,TOTAL 0.4 MG/DL (0.2-1.0); BLOOD UREA NITROGEN 18 mg/dL (7-18); CALCIUM 7.9 MG/DL (8.5-10.1); CARBON DIOXIDE 26 MMOL/L (21-32); CHLORIDE 107 MMOL/L (98-107); CREATININE 0.8 MG/DL (0.55-1.30); POTASSIUM 4.2 MMOL/L (3.5-5.1); SODIUM 142 MMOL/L (136-145)
--- NOTE | 2020-04-02 11:26 | Infectious Diseases Prog Note ---
Assessment/Plan Assessment/Plan A; Severe COVID19 pneumonia Hypoxemia DM Lymphocytopenia P: Continue Remdesivir Continue Solumedrol Subjective ROS Limited/Unobtainable: Yes Allergies: Coded Allergies: No Known Allergies (Unverified , 03/29/20) Objective Last 24 Hour Vital Signs Date Time Temp Pulse Resp B/P (MAP) Pulse Ox O2 Delivery O2 Flow Rate FiO2 04/02/20 09:00 Non-Rebreather 15.0 Non-Rebreather 15.0 04/02/20 08:00 69 04/02/20 08:00 97.5 67 16 134/71 (92) 91 04/02/20 04:00 97.5 84 21 129/74 (92) 94 04/02/20 04:00 63 04/02/20 00:00 65 04/02/20 00:00 98.0 74 17 124/78 (93) 95 04/01/20 21:00 Non-Rebreather 15.0 Non-Rebreather 15.0 04/01/20 20:00 98.2 70 18 116/64 (81) 92 04/01/20 20:00 66 04/01/20 16:00 68 04/01/20 16:00 97.8 93 24 130/76 (94) 97 04/01/20 12:00 66 04/01/20 11:37 98.1 96 23 129/67 (87) 96 Height (Feet): 5 Height (Inches): 7.00 Weight (Pounds): 195 HEENT: mucous membranes moist Respiratory/Chest: lungs clear, other - Oxygen by NRN mask, 15 L Cardiovascular: normal rate Abdomen: soft, non tender Extremities: no edema Neurologic/Psychiatric: alert, responsive Laboratory Tests Test 04/01/20 11:46 04/01/20 16:19 04/01/20 20:29 04/02/20 04:49 POC Whole Blood Glucose 101 MG/DL (74-106) 169 MG/DL (74-106) H 246 MG/DL (74-106) H 138 MG/DL (74-106) H Test 04/02/20 07:30 White Blood Count 10.6 K/UL (4.8-10.8) Red Blood Count 4.23 M/UL (4.70-6.10) L Hemoglobin 13.2 G/DL (14.2-18.0) L Hematocrit 40.2 % (42.0-52.0) L Mean Corpuscular Volume 95 FL (80-99) Mean Corpuscular Hemoglobin 31.2 PG (27.0-31.0) H Mean Corpuscular Hemoglobin Concent 32.8 G/DL (32.0-36.0) Red Cell Distribution Width 15.0 % (11.6-14.8) H Platelet Count 318 K/UL (150-450) Mean Platelet Volume 6.5 FL (6.5-10.1) Neutrophils (%) (Auto) % (45.0-75.0) Lymphocytes (%) (Auto) % (20.0-45.0) Monocytes (%) (Auto) % (1.0-10.0) Eosinophils (%) (Auto) % (0.0-3.0) Basophils (%) (Auto) % (0.0-2.0) Differential Total Cells Counted 100 Neutrophils % (Manual) 90 % (45-75) H Lymphocytes % (Manual) 6 % (20-45) L Monocytes % (Manual) 4 % (1-10) Eosinophils % (Manual) 0 % (0-3) Basophils % (Manual) 0 % (0-2) Band Neutrophils 0 % (0-8) Platelet Estimate Adequate Platelet Morphology Normal Anisocytosis 1+ Sodium Level 142 MMOL/L (136-145) Potassium Level 4.2 MMOL/L (3.5-5.1) Chloride Level 107 MMOL/L (98-107) Carbon Dioxide Level 26 MMOL/L (21-32) Anion Gap 9 mmol/L (5-15) Blood Urea Nitrogen 18 mg/dL (7-18) Creatinine 0.8 MG/DL (0.55-1.30) Estimat Glomerular Filtration Rate > 60 mL/min (>60) Glucose Level 143 MG/DL (74-106) H Calcium Level 7.9 MG/DL (8.5-10.1) L Total Bilirubin 0.4 MG/DL (0.2-1.0) Direct Bilirubin 0.1 MG/DL (0.0-0.3) Aspartate Amino Transf (AST/SGOT) 39 U/L (15-37) H Alanine Aminotransferase (ALT/SGPT) 43 U/L (12-78) Alkaline Phosphatase 75 U/L (46-116) Total Protein 7.0 G/DL (6.4-8.2) Albumin 1.8 G/DL (3.4-5.0) L Globulin 5.2 g/dL Albumin/Globulin Ratio 0.3 (1.0-2.7) L Current Medications Medications (Trade) Dose Ordered Sig/Compa Route PRN Reason Start Time Stop Time Status Last Admin Dose Admin Acetaminophen (Tylenol) 650 mg Q4H PRN ORAL Mild Pain (Pain Scale 1-3) 03/29/20 22:45 04/28/20 22:44 04/01/20 08:27 Acetaminophen (Tylenol) 650 mg Q4H PRN ORAL Temp >100.5 03/29/20 22:45 04/28/20 22:44 Albuterol Sulfate (Proventil MDI) 2 puff Q4H PRN INH Shortness of Breath 03/31/20 07:00 06/29/20 06:59 04/01/20 12:46 Artificial Tears (Akwa-Tears) 2 drop Q2H PRN BOTH EYES Dry Eyes 03/31/20 07:00 04/30/20 06:59 03/31/20 16:00 Ascorbic Acid (Vitamin C) 500 mg DAILY ORAL 03/30/20 09:00 04/29/20 08:59 04/02/20 08:14 Dextrose (Dextrose 50%) 25 ml Q30M PRN IV Hypoglycemia 03/30/20 02:00 06/28/20 01:59 Dextrose (Dextrose 50%) 50 ml Q30M PRN IV Hypoglycemia 03/30/20 02:00 06/28/20 01:59 Enoxaparin Sodium (Lovenox) 80 mg Q12H SUBQ 03/30/20 09:00 06/28/20 08:59 04/02/20 08:16 Famotidine (Pepcid) 20 mg DAILY ORAL 03/30/20 09:00 06/28/20 08:59 04/02/20 08:14 Guaifenesin/ Dextromethorphan (Robitussin DM Syrup) 10 ml Q4H PRN ORAL For Cough 03/31/20 11:30 06/29/20 11:29 04/01/20 20:42 Insulin Aspart (NovoLOG) BEFORE MEALS AND HS SUBQ 03/30/20 06:30 06/28/20 06:29 04/01/20 20:48 Insulin Detemir (Levemir) 6 units ACBREAKFAST SUBQ 04/01/20 06:30 06/30/20 06:29 04/02/20 06:33 Insulin Detemir (Levemir) 10 units BEDTIME SUBQ 03/31/20 00:30 06/29/20 00:29 04/01/20 20:47 Methylprednisolone Sodium Succinate (Solu-MEDROL) 40 mg EVERY 12 HOURS IVP 04/01/20 11:30 06/30/20 11:29 04/02/20 08:14 Remdesivir 100 mg/ Sodium Chloride 250 ml @ 250 mls/hr Q24H IV 03/31/20 17:00 04/03/20 17:59 04/01/20 17:30 Sodium Chloride 1,000 ml @ 70 mls/hr [id number] IV 03/29/20 22:45 04/28/20 22:44 04/01/20 22:21 Vitamin D (Vitamin D) 1,000 unit DAILY ORAL 03/30/20 09:00 04/29/20 08:59 04/02/20 08:14 Zinc Sulfate (Zinc Sulfate) 220 mg DAILY ORAL 03/30/20 09:00 06/28/20 08:59 04/02/20 08:14 Jose Washington MD Apr 02, 2020 11:26
[2020-04-02 12:00] VITALS: BP 130/75
--- NOTE | 2020-04-02 12:00 | NUR ---
NURSE NOTES: Report received from ALLY Brennan. patient is alert, awake and oriented x4 [place] speaking and able to express needs in Yoruba as well. Able to follow commands. Presently on a non-rebreather mask @ 15 liters with SPo2 @ 91%- 94%. Patient able to ambulate with minimal assistance.PIV on Right AC 18g and right hand 22g that is patent and asymptomatic. kept bed in the lowest position. call light within easy reach and siderails up x2. Will continue to monitor as indicated.
--- NOTE | 2020-04-02 12:02 | NUR ---
NURSE HAND-OFF REPORT: Important Events on Shift:COVID MONITORING Patient Status: STABLE Diet: REG Pending Orders: N/A Pending Results/Labs:N/A Pending MD notification:N/A Latest Vital Signs: Temperature 97.5 , Pulse 67 , B/P 134 /71 , Respiratory Rate 16 , O2 SAT 91 , Non-Rebreather, O2 Flow Rate 15.0 . Vital Sign Comment: STABLE EKG Rhythm: Sinus Rhythm Rhythm change?: N MD Notified?: - MD Response: Latest Park Fall Score: 20 Fall Risk: Low Risk Safety Measures: Call light Within Reach, Bed Alarm Zone 1, Side Rails Side Rails x2, Bed position Low and Locked. Fall Precautions: Yellow Socks Report given to ALLY Estevez.
[2020-04-02 16:00] VITALS: BP 124/73
--- NOTE | 2020-04-02 16:36 | Cardiology Progress Note ---
Subjective DATE OF SERVICE: Apr 02, 2020 Still on high flow oxygen Was able to sleep with lorazepam. Glucose elevated on steroids - but improved with insulin adjustments. Objective Last 24 Hour Vital Signs Date Time Temp Pulse Resp B/P (MAP) Pulse Ox O2 Delivery O2 Flow Rate FiO2 04/02/20 16:00 97.5 83 15 124/73 (90) 92 04/02/20 12:00 68 04/02/20 12:00 97.5 69 16 130/75 (93) 92 04/02/20 09:00 Non-Rebreather 15.0 Non-Rebreather 15.0 04/02/20 08:00 69 04/02/20 08:00 97.5 67 16 134/71 (92) 91 04/02/20 04:00 97.5 84 21 129/74 (92) 94 04/02/20 04:00 63 04/02/20 00:00 65 04/02/20 00:00 98.0 74 17 124/78 (93) 95 04/01/20 21:00 Non-Rebreather 15.0 Non-Rebreather 15.0 04/01/20 20:00 98.2 70 18 116/64 (81) 92 04/01/20 20:00 66 HEENT: normal ENT inspection RHYTHM: NSR LUNGS: bilateral rhonchi CARDIAC: regular rhythm, normal S1 and S2 ABDOMEN: normal bowel sounds, non tender, other - obese EXTREMITIES: normal range of motion, non-tender, trace edema Laboratory Tests Test 04/01/20 20:29 04/02/20 04:49 04/02/20 07:30 04/02/20 11:26 POC Whole Blood Glucose 246 MG/DL (74-106) H 138 MG/DL (74-106) H 131 MG/DL (74-106) H White Blood Count 10.6 K/UL (4.8-10.8) Red Blood Count 4.23 M/UL (4.70-6.10) L Hemoglobin 13.2 G/DL (14.2-18.0) L Hematocrit 40.2 % (42.0-52.0) L Mean Corpuscular Volume 95 FL (80-99) Mean Corpuscular Hemoglobin 31.2 PG (27.0-31.0) H Mean Corpuscular Hemoglobin Concent 32.8 G/DL (32.0-36.0) Red Cell Distribution Width 15.0 % (11.6-14.8) H Platelet Count 318 K/UL (150-450) Mean Platelet Volume 6.5 FL (6.5-10.1) Neutrophils (%) (Auto) % (45.0-75.0) Lymphocytes (%) (Auto) % (20.0-45.0) Monocytes (%) (Auto) % (1.0-10.0) Eosinophils (%) (Auto) % (0.0-3.0) Basophils (%) (Auto) % (0.0-2.0) Differential Total Cells Counted 100 Neutrophils % (Manual) 90 % (45-75) H Lymphocytes % (Manual) 6 % (20-45) L Monocytes % (Manual) 4 % (1-10) Eosinophils % (Manual) 0 % (0-3) Basophils % (Manual) 0 % (0-2) Band Neutrophils 0 % (0-8) Platelet Estimate Adequate Platelet Morphology Normal Anisocytosis 1+ Sodium Level 142 MMOL/L (136-145) Potassium Level 4.2 MMOL/L (3.5-5.1) Chloride Level 107 MMOL/L (98-107) Carbon Dioxide Level 26 MMOL/L (21-32) Anion Gap 9 mmol/L (5-15) Blood Urea Nitrogen 18 mg/dL (7-18) Creatinine 0.8 MG/DL (0.55-1.30) Estimat Glomerular Filtration Rate > 60 mL/min (>60) Glucose Level 143 MG/DL (74-106) H Calcium Level 7.9 MG/DL (8.5-10.1) L Total Bilirubin 0.4 MG/DL (0.2-1.0) Direct Bilirubin 0.1 MG/DL (0.0-0.3) Aspartate Amino Transf (AST/SGOT) 39 U/L (15-37) H Alanine Aminotransferase (ALT/SGPT) 43 U/L (12-78) Alkaline Phosphatase 75 U/L (46-116) Total Protein 7.0 G/DL (6.4-8.2) Albumin 1.8 G/DL (3.4-5.0) L Globulin 5.2 g/dL Albumin/Globulin Ratio 0.3 (1.0-2.7) L Assessment/Plan Assessment/Plan Covid 19 PNA Hypoxia Diabetes mellitus exacerbated by steroids No clinical signs of CHF; BNP normal range. Orders and POC updated. Continuing efforts to taper O2 needs. Raul Mike MD Apr 02, 2020 16:36
[2020-04-02] MEDS: Maintenance Dose:Remdesivir 100mg/NS 230ml x 4 Doses IV SCH ×2 (16:54)
[2020-04-02] MEDS: Albuterol 90mcg Inhaler 8gm INH PRN ×2 (17:05→23:55)
--- NOTE | 2020-04-02 19:20 | NUR ---
NURSE HAND-OFF REPORT: Important Events on Shift:[monitor O2 sat] Patient Status: [stable] Diet: [reg] Pending Orders: [labs] Pending Results/Labs:[am] Pending MD notification:[] Latest Vital Signs: Temperature 97.5 , Pulse 76 , B/P 124 /73 , Respiratory Rate 15 , O2 SAT 92 , Non-Rebreather, O2 Flow Rate 15.0 . Vital Sign Comment: [] EKG Rhythm: Sinus Rhythm Rhythm change?: N MD Notified?: - MD Response: Latest Park Fall Score: 20 Fall Risk: Low Risk Safety Measures: Call light Within Reach, Bed Alarm Zone 1, Side Rails Side Rails x2, Bed position Low and Locked. Fall Precautions: Yellow Socks Report given to [marli ].
--- NOTE | 2020-04-02 19:25 | NUR ---
NURSE NOTES: pt report received from morena CANALES. pt conditions remains unchanged. pt is alert and oriented times 3, able to follow simple commands. pt is sating 98% O2 on room air, no other acute resp distress noted. pt is on monitoring coordinator showing NSR, no abnormalities to heart rhythm. pt bed is low, locked, armed, call light within reach, will follow plan of care.
[2020-04-02 20:00] VITALS: BP 120/63
[2020-04-03] VITALS: BP 118/73
[2020-04-03 04:00] VITALS: BP 128/69
[2020-04-03] MEDS: Levemir Flexpen SUBQ SCH ×2 (06:06→20:28)
[2020-04-03] MEDS: NovoLOG Insulin Flexpen SUBQ SCH ×4 (06:07→20:29)
--- NOTE | 2020-04-03 07:30 | NUR ---
NURSE HAND-OFF REPORT: Important Events on Shift:[NA] Patient Status: [stable] Diet: [per dr order] Pending Orders: [na] Pending Results/Labs:[na] Pending MD notification:[na] Latest Vital Signs: Temperature 97.9 , Pulse 90 , B/P 128 /69 , Respiratory Rate 16 , O2 SAT 98 , Non-Rebreather, O2 Flow Rate 15.0 . Vital Sign Comment: [stable] EKG Rhythm: Sinus Rhythm Rhythm change?: N MD Notified?: - MD Response: Latest Park Fall Score: 20 Fall Risk: Low Risk Safety Measures: Call light Within Reach, Bed Alarm Zone 1, Side Rails Side Rails x2, Bed position Low and Locked. Fall Precautions: Yellow Socks Report given to [Luan Bertrand RN].
[2020-04-03] MEDS: Zinc Sulfate 220mg ORAL SCH (07:44)
[2020-04-03] MEDS: Vitamin D 1000 units Tab ORAL SCH (07:44)
[2020-04-03] MEDS: Solu-MEDROL 40mg Inj IVP SCH ×2 (07:44→20:16)
[2020-04-03] MEDS: Ascorbic Acid 500mg tab ORAL SCH (07:44)
[2020-04-03 08:00] VITALS: BP 122/64
--- NOTE | 2020-04-03 08:00 | NUR ---
NURSE NOTES: Pt awake/alert in bed, breathing with 15 lpm NRB and c/o slight SOB, some accessory muscle use noted. Pt denies pain at this time. Vital signs stable with SR @ 76 on monitor. IV access RAC and LH flushed with 10 ml NS and locked. Bed left in low position, side rails up x 2 and call light left near pt's hand.
[2020-04-03] MEDS: Enoxaparin 80mg Inj SUBQ SCH ×2 (09:18→20:17)
[2020-04-03 12:00] VITALS: BP 119/69
[2020-04-03 13:31] LABS: HEMATOCRIT 44.4 % (42.0-52.0); HEMOGLOBIN 14.4 G/DL (14.2-18.0); MEAN CORPUSCULAR VOLUME 96 FL (80-99); PLATELET COUNT 386 K/UL (150-450); RED BLOOD COUNT 4.63 M/UL (4.70-6.10); RED CELL DISTRIBUTION WIDTH 15.1 % (11.6-14.8); WHITE BLOOD COUNT 15.5 K/UL (4.8-10.8)
[2020-04-03 13:46] LABS: ALANINE AMINOTRANSFERASE 38 U/L (12-78); ALBUMIN 1.9 G/DL (3.4-5.0); ALBUMIN/GLOBULIN RATIO 0.3 (1.0-2.7); ALKALINE PHOSPHATASE 80 U/L (46-116); ANION GAP 6 mmol/L (5-15); ASPARTATE AMINO TRANSFERASE 33 U/L (15-37); BILIRUBIN,DIRECT 0.1 MG/DL (0.0-0.3); BILIRUBIN,TOTAL 0.4 MG/DL (0.2-1.0); BLOOD UREA NITROGEN 20 mg/dL (7-18); CARBON DIOXIDE 27 MMOL/L (21-32); CHLORIDE 106 MMOL/L (98-107); CREATININE 0.9 MG/DL (0.55-1.30); POTASSIUM 4.5 MMOL/L (3.5-5.1); SODIUM 139 MMOL/L (136-145)
[2020-04-03 16:04] VITALS: BP 122/65
--- NOTE | 2020-04-03 16:41 | Cardiology Progress Note ---
Subjective DATE OF SERVICE: Apr 03, 2020 Still on high flow oxygen, but sitting up and says he feels better Was able to sleep with lorazepam. Glucose elevated on steroids - but improved with on-going insulin adjustments. Objective Last 24 Hour Vital Signs Date Time Temp Pulse Resp B/P (MAP) Pulse Ox O2 Delivery O2 Flow Rate FiO2 04/03/20 16:04 97.5 92 18 122/65 (84) 92 04/03/20 16:04 92 04/03/20 12:00 72 04/03/20 12:00 97.9 71 22 119/69 (86) 91 04/03/20 09:47 Non-Rebreather 15.0 Non-Rebreather 15.0 04/03/20 08:00 97.9 89 22 122/64 (83) 93 04/03/20 08:00 89 04/03/20 04:00 79 04/03/20 04:00 97.9 90 16 128/69 (88) 98 04/03/20 00:00 75 04/03/20 00:00 98.0 73 16 118/73 (88) 95 04/02/20 21:00 Non-Rebreather 15.0 Non-Rebreather 15.0 04/02/20 20:00 98.2 78 15 120/63 (82) 95 04/02/20 20:00 66 04/02/20 16:41 76 HEENT: normal ENT inspection RHYTHM: NSR LUNGS: bilateral rhonchi CARDIAC: regular rhythm, normal S1 and S2 ABDOMEN: normal bowel sounds, non tender, other - obese EXTREMITIES: normal range of motion, non-tender, trace edema Laboratory Tests Test 04/02/20 21:47 04/03/20 06:01 04/03/20 13:10 04/03/20 16:11 POC Whole Blood Glucose Pending 145 MG/DL (74-106) H 183 MG/DL (74-106) H White Blood Count 15.5 K/UL (4.8-10.8) H Red Blood Count 4.63 M/UL (4.70-6.10) L Hemoglobin 14.4 G/DL (14.2-18.0) Hematocrit 44.4 % (42.0-52.0) Mean Corpuscular Volume 96 FL (80-99) Mean Corpuscular Hemoglobin 31.1 PG (27.0-31.0) H Mean Corpuscular Hemoglobin Concent 32.4 G/DL (32.0-36.0) Red Cell Distribution Width 15.1 % (11.6-14.8) H Platelet Count 386 K/UL (150-450) Mean Platelet Volume 6.5 FL (6.5-10.1) Neutrophils (%) (Auto) % (45.0-75.0) Lymphocytes (%) (Auto) % (20.0-45.0) Monocytes (%) (Auto) % (1.0-10.0) Eosinophils (%) (Auto) % (0.0-3.0) Basophils (%) (Auto) % (0.0-2.0) Differential Total Cells Counted 100 Neutrophils % (Manual) 94 % (45-75) H Lymphocytes % (Manual) 4 % (20-45) L Monocytes % (Manual) 2 % (1-10) Eosinophils % (Manual) 0 % (0-3) Basophils % (Manual) 0 % (0-2) Band Neutrophils 0 % (0-8) Platelet Estimate Adequate Platelet Morphology Normal Anisocytosis 1+ Sodium Level 139 MMOL/L (136-145) Potassium Level 4.5 MMOL/L (3.5-5.1) Chloride Level 106 MMOL/L (98-107) Carbon Dioxide Level 27 MMOL/L (21-32) Anion Gap 6 mmol/L (5-15) Blood Urea Nitrogen 20 mg/dL (7-18) H Creatinine 0.9 MG/DL (0.55-1.30) Estimat Glomerular Filtration Rate > 60 mL/min (>60) Glucose Level 209 MG/DL (74-106) H Calcium Level 8.0 MG/DL (8.5-10.1) L Total Bilirubin 0.4 MG/DL (0.2-1.0) Direct Bilirubin 0.1 MG/DL (0.0-0.3) Aspartate Amino Transf (AST/SGOT) 33 U/L (15-37) Alanine Aminotransferase (ALT/SGPT) 38 U/L (12-78) Alkaline Phosphatase 80 U/L (46-116) Total Protein 7.5 G/DL (6.4-8.2) Albumin 1.9 G/DL (3.4-5.0) L Globulin 5.6 g/dL Albumin/Globulin Ratio 0.3 (1.0-2.7) L Assessment/Plan Assessment/Plan Covid 19 PNA Hypoxia Diabetes mellitus exacerbated by steroids No clinical signs of CHF; BNP normal range. Orders and POC updated. Continuing efforts to taper O2 needs. Raul Mike MD Apr 03, 2020 16:40
[2020-04-03] MEDS: Maintenance Dose:Remdesivir 100mg/NS 230ml x 4 Doses IV SCH ×2 (16:52)
--- NOTE | 2020-04-03 17:44 | History and Physical Report ---
DATE OF ADMISSION: 03/29/2020 REASON FOR ADMISSION: COVID-19 pneumonia with hypoxia. HISTORY OF PRESENT ILLNESS: This is a 59-year-old male. He tested COVID-19 positive in the past week. He has been increasingly short of breath for four days. He was brought into the emergency room by paramedics from home. He was noted to be hypoxic on room air. He has been coughing, but has not had chest pain or fevers. He was placed on a non-rebreather mask to maintain adequate oxygenation. PAST MEDICAL HISTORY: Diabetes mellitus. ALLERGIES: None known. MEDICATIONS: Not known. SOCIAL HISTORY: Negative for smoking, alcohol, or substance abuse. PHYSICAL EXAMINATION: GENERAL: Afebrile. VITAL SIGNS: Initial blood pressure 190/106, subsequently 134/77; heart rate 85; respiratory rate 24; temperature 100.1. Oxygen saturation on 10 liters non-rebreather mask is 96%. CHEST: Bilateral breath sounds with rhonchi. No accessory muscle use. No thrush. CARDIAC: Regular rhythm and rate. Normal S1, S2 with no murmur. ABDOMEN: Soft. EXTREMITIES: No edema. LABORATORY DATA: White count 11.6, hemoglobin 14.5. Sodium 130, potassium 4.3, chloride 93, bicarb 27, BUN 11, creatinine 1. Lactic acid 1.2. Glucose 143. C-reactive protein is 27. Chest x-ray with bilateral infiltrates. IMPRESSION: 1. COVID-19 pneumonia. 2. Hypoxia. 3. History of diabetes mellitus. 4. Hyponatremia. 5. Hypovolemia. 6. Hypochloremia. PLAN: 1. IV steroids. 2. Oxygenation with high-flow mask and taper as able. 3. Full anticoagulation. 4. Consider remdesivir. 5. Saline hydration. Raul Mike M.D. DR: IVETTE JOB#: [id number] CC:
--- NOTE | 2020-04-03 18:44 | Consultation ---
DATE OF CONSULTATION: 03/30/2020 INFECTIOUS DISEASES CONSULTATION REFERRING PHYSICIAN: Dr. Mkie. REASON FOR CONSULTATION: COVID-19 pneumonia. HISTORY OF PRESENTING ILLNESS: This is a 59-year-old gentleman with history of diabetes, hypertension, who comes in with shortness of breath along with cough and a mild headache. He was found to have COVID-19 pneumonia and an Infectious Diseases consultation has been obtained for antibiotics. PAST MEDICAL HISTORY: 1. History of diabetes. 2. History of hypertension. SOCIAL HISTORY: He does not smoke, drink, or use drugs. FAMILY HISTORY: Noncontributory. REVIEW OF SYSTEMS: RESPIRATORY: No fever or chills. He has cough. He has shortness of breath. No chest pain. CARDIAC: No chest pain. No palpitation. No dizziness. No syncope. GI: No nausea. No vomiting. No abdominal pain or diarrhea. MUSCULOSKELETAL: He complains of headache which is mild. MEDICATIONS: As an inpatient, he is on ceftriaxone, enoxaparin, zinc sulfate, ascorbic acid, vitamin D, famotidine, dexamethasone, insulin, Tylenol. ALLERGIES: No known drug allergies. PHYSICAL EXAMINATION: VITAL SIGNS: Temperature of 96.9, T-max of 100.2, pulse of 78, respiratory rate 18, blood pressure 144/85, O2 saturation of 94% on 15 liters of oxygen. Examination deferred due to COVID-19. LABS: White count 11.6, hemoglobin 14.5, hematocrit 44.7, MCV 94, platelet count of 213 with neutrophils of 85%. Sodium 130, potassium 4.3, chloride 93, bicarb 27, BUN 11, creatinine 1, glucose 143, calcium 8.9, ferritin 394. Total bilirubin 0.6, AST 94, ALT 69, alkaline phosphatase 99, LDH 397. Troponin 0. C-reactive protein 27.3. Total protein 8.1. Albumin 2.3. Lipase of 346. UA is showing 0 to 2 white cells. ASSESSMENT: This is a 59-year-old gentleman with history of diabetes and hypertension, who comes in with shortness of breath and cough and is found to have. 1. COVID-19 pneumonia on 15 liters of oxygen with O2 saturation of 94%. 2. Diabetes. 3. Hypertension. PLAN: 1. We will start the patient on remdesivir. 2. Continue dexamethasone . 3. Discontinue ceftriaxone. 4. Continue isolation. I would like to thank Dr. Mike for this consultation. Breezy Kowalski M.D. DR: DIEGO JOB#: [id number] CC: Raul Mike M.D.
--- NOTE | 2020-04-03 19:10 | NUR ---
NURSE NOTES: Received report from ALLY Briscoe. pt is lying in bed in semi- siddiqui's position. pt is alert oriented x 4. Pt is verbally responsive. Pt is not in distress. Pt on NRB at 15L, o2 sat- 91%. Pt has RAC g18, and Left hand g22 intact and patent. No pain noted. Bed in lowest position, call light within reach. Continue to plan of care.
[2020-04-03 20:00] VITALS: BP 127/72
--- NOTE | 2020-04-03 23:57 | NUR ---
NURSE NOTES: Pt is sleeping in bed. O2 sat- 92%, pt denies pain. No any other complaint noted. Continue to plan of care.
[2020-04-04] VITALS: BP 134/84
--- NOTE | 2020-04-04 01:50 | NUR ---
NURSE NOTES: Pt refused sponge bath, changed gown, reposition pt. Refused to remove under garments. O2 sat between 88-89%, not in distress, fixed o2 sat still o2 sat highest is 90%, informed RT to checked ABG.
--- NOTE | 2020-04-04 01:56 | NUR ---
NURSE NOTES: After fixing pulse oximeter and pt is not restless and sleeping, o2 sat went up to 94%. Informed Rt to cancel the ABG. Pt is not in any SOB or distress. Will Continue to monitor pt.
[2020-04-04 04:00] VITALS: BP 117/64
--- NOTE | 2020-04-04 05:15 | NUR ---
NURSE NOTES: Pt o2 sat- 90% on exertion, 95% while resting. No pain noted. No tachypnea or respiratory distress noted.
[2020-04-04] MEDS: Levemir Flexpen SUBQ SCH ×2 (05:47→20:41)
[2020-04-04] MEDS: NovoLOG Insulin Flexpen SUBQ SCH ×4 (05:48→20:38)
--- NOTE | 2020-04-04 07:25 | NUR ---
NURSE HAND-OFF REPORT: Important Events on Shift: pt desat to 88-89%, checked ABG endorsed to AM shift Patient Status: Guarded Diet:Regular diet Pending Orders: None Pending Results/Labs: None Pending MD notification: None Latest Vital Signs: Temperature 97.7 , Pulse 73 , B/P 117 /64 , Respiratory Rate 16 , O2 SAT 98 , Non-Rebreather, O2 Flow Rate 15.0 . Vital Sign Comment: WNL EKG Rhythm: Sinus Rhythm Rhythm change?: N MD Notified?: - MD Response: Latest Park Fall Score: 20 Fall Risk: Low Risk Safety Measures: Call light Within Reach, Bed Alarm Zone 1, Side Rails Side Rails x2, Bed position Low and Locked. Fall Precautions: Yellow Socks Report given to [ALLY Brennan].
--- NOTE | 2020-04-04 07:46 | NUR ---
NURSE NOTES: Patient received from ALLY Braswell. Patient observed to be awake, alert, and oriented x4. Seen lying in bed with HOB elevated, currently on 15L NRB. No s/sx of SOB/Distress, no c/o any pain or discomfort. Patient on contact and droplet isolation d/t covid. Patient with IV site located on LHand gauge 22 line asymptomatic, inplace and intact. Bed placed on lowest and locked, call light placed within reach and will continue to monitor for any changes in patient's condition.
[2020-04-04 08:00] VITALS: BP 125/70
[2020-04-04] MEDS: Zinc Sulfate 220mg ORAL SCH (08:11)
[2020-04-04] MEDS: Vitamin D 1000 units Tab ORAL SCH (08:11)
[2020-04-04] MEDS: Solu-MEDROL 40mg Inj IVP SCH ×2 (08:12→22:29)
[2020-04-04] MEDS: Ascorbic Acid 500mg tab ORAL SCH (08:12)
[2020-04-04] MEDS: Enoxaparin 80mg Inj SUBQ SCH ×2 (08:12→22:29)
--- NOTE | 2020-04-04 09:00 | NUR ---
NURSE NOTES: Patient abg done s02 @ 83,6 p02 @47.6 patient currently on 15L NRB received orders from Dr. Gleason to place pt on high flow and to update in any changes in pt status. Orders noted and carried out.
--- NOTE | 2020-04-04 10:30 | NUR ---
RESPIRATORY NOTE: PT was placed on BIPAP due to desaturation and SOB. Settings: 15/8 RR:14, 100%. Full face mask placed on PT. Foam tape on face with no wounds found during pre-taping facial inspection. Will continue to monitor.
--- NOTE | 2020-04-04 11:03 | Infectious Diseases Prog Note ---
Assessment/Plan Assessment/Plan antibiotics : remdesivir A 1. covid 19 pneumonia on 100 % Fi O2 with 90 % saturation s/p remdesivir 2. diabetes mellitus 3 respiratory failure P 1. continue solumedrol 2. continue isolation Subjective Constitutional: Denies: fever, chills Respiratory: Reports: shortness of breath, dry cough Cardiovascular: Reports: chest pain Gastrointestinal/Abdominal: Denies: nausea, vomiting, diarrhea Musculoskeletal: Denies: pain Allergies: Coded Allergies: No Known Allergies (Unverified , 03/29/20) Objective Last 24 Hour Vital Signs Date Time Temp Pulse Resp B/P (MAP) Pulse Ox O2 Delivery O2 Flow Rate FiO2 04/04/20 09:00 Non-Rebreather 15.0 Bi-pap 04/04/20 08:00 92 04/04/20 04:00 97.7 73 16 117/64 (81) 98 04/04/20 04:00 68 04/04/20 00:00 71 04/04/20 00:00 98.6 76 22 134/84 (101) 90 04/03/20 21:00 Non-Rebreather 15.0 Non-Rebreather 15.0 04/03/20 20:00 99.1 72 18 127/72 (90) 92 04/03/20 20:00 77 04/03/20 16:04 97.5 92 18 122/65 (84) 92 04/03/20 16:04 92 04/03/20 12:00 72 04/03/20 12:00 97.9 71 22 119/69 (86) 91 Height (Feet): 5 Height (Inches): 7.00 Weight (Pounds): 195 HEENT: other - on bipap Laboratory Tests Test 04/03/20 13:10 04/03/20 16:11 04/03/20 20:22 04/04/20 08:34 White Blood Count 15.5 K/UL (4.8-10.8) H Red Blood Count 4.63 M/UL (4.70-6.10) L Hemoglobin 14.4 G/DL (14.2-18.0) Hematocrit 44.4 % (42.0-52.0) Mean Corpuscular Volume 96 FL (80-99) Mean Corpuscular Hemoglobin 31.1 PG (27.0-31.0) H Mean Corpuscular Hemoglobin Concent 32.4 G/DL (32.0-36.0) Red Cell Distribution Width 15.1 % (11.6-14.8) H Platelet Count 386 K/UL (150-450) Mean Platelet Volume 6.5 FL (6.5-10.1) Neutrophils (%) (Auto) % (45.0-75.0) Lymphocytes (%) (Auto) % (20.0-45.0) Monocytes (%) (Auto) % (1.0-10.0) Eosinophils (%) (Auto) % (0.0-3.0) Basophils (%) (Auto) % (0.0-2.0) Differential Total Cells Counted 100 Neutrophils % (Manual) 94 % (45-75) H Lymphocytes % (Manual) 4 % (20-45) L Monocytes % (Manual) 2 % (1-10) Eosinophils % (Manual) 0 % (0-3) Basophils % (Manual) 0 % (0-2) Band Neutrophils 0 % (0-8) Platelet Estimate Adequate Platelet Morphology Normal Anisocytosis 1+ Sodium Level 139 MMOL/L (136-145) Potassium Level 4.5 MMOL/L (3.5-5.1) Chloride Level 106 MMOL/L (98-107) Carbon Dioxide Level 27 MMOL/L (21-32) Anion Gap 6 mmol/L (5-15) Blood Urea Nitrogen 20 mg/dL (7-18) H Creatinine 0.9 MG/DL (0.55-1.30) Estimat Glomerular Filtration Rate > 60 mL/min (>60) Glucose Level 209 MG/DL (74-106) H Calcium Level 8.0 MG/DL (8.5-10.1) L Total Bilirubin 0.4 MG/DL (0.2-1.0) Direct Bilirubin 0.1 MG/DL (0.0-0.3) Aspartate Amino Transf (AST/SGOT) 33 U/L (15-37) Alanine Aminotransferase (ALT/SGPT) 38 U/L (12-78) Alkaline Phosphatase 80 U/L (46-116) Total Protein 7.5 G/DL (6.4-8.2) Albumin 1.9 G/DL (3.4-5.0) L Globulin 5.6 g/dL Albumin/Globulin Ratio 0.3 (1.0-2.7) L POC Whole Blood Glucose 183 MG/DL (74-106) H 140 MG/DL (74-106) H Arterial Blood pH 7.426 (7.350-7.450) Arterial Blood Partial Pressure CO2 46.1 mmHg (35.0-45.0) H Arterial Blood Partial Pressure O2 47.6 mmHg (75.0-100.0) Arterial Blood HCO3 29.6 mmol/L (22.0-26.0) H Arterial Blood Oxygen Saturation 83.5 % (95-100) *L Arterial Blood Base Excess 4.4 (-2-2) H Eliazar Test Positive Current Medications Medications (Trade) Dose Ordered Sig/Compa Route PRN Reason Start Time Stop Time Status Last Admin Dose Admin Acetaminophen (Tylenol) 650 mg Q4H PRN ORAL Mild Pain (Pain Scale 1-3) 03/29/20 22:45 04/28/20 22:44 04/01/20 08:27 Acetaminophen (Tylenol) 650 mg Q4H PRN ORAL Temp >100.5 03/29/20 22:45 04/28/20 22:44 Albuterol Sulfate (Proventil MDI) 2 puff Q4H PRN INH Shortness of Breath 03/31/20 07:00 06/29/20 06:59 04/02/20 23:55 Artificial Tears (Akwa-Tears) 2 drop Q2H PRN BOTH EYES Dry Eyes 03/31/20 07:00 04/30/20 06:59 03/31/20 16:00 Ascorbic Acid (Vitamin C) 500 mg DAILY ORAL 03/30/20 09:00 04/29/20 08:59 04/04/20 08:12 Dextrose (Dextrose 50%) 25 ml Q30M PRN IV Hypoglycemia 03/30/20 02:00 06/28/20 01:59 Dextrose (Dextrose 50%) 50 ml Q30M PRN IV Hypoglycemia 03/30/20 02:00 06/28/20 01:59 Enoxaparin Sodium (Lovenox) 80 mg Q12H SUBQ 03/30/20 09:00 06/28/20 08:59 04/04/20 08:12 Famotidine (Pepcid) 20 mg DAILY ORAL 03/30/20 09:00 06/28/20 08:59 04/04/20 08:12 Guaifenesin/ Dextromethorphan (Robitussin DM Syrup) 10 ml Q4H PRN ORAL For Cough 03/31/20 11:30 06/29/20 11:29 04/01/20 20:42 Insulin Aspart (NovoLOG) BEFORE MEALS AND HS SUBQ 03/30/20 06:30 06/28/20 06:29 04/04/20 05:48 Insulin Detemir (Levemir) 6 units ACBREAKFAST SUBQ 04/01/20 06:30 06/30/20 06:29 04/04/20 05:47 Insulin Detemir (Levemir) 12 units BEDTIME SUBQ 04/03/20 21:00 06/29/20 00:29 04/03/20 20:28 Methylprednisolone Sodium Succinate (Solu-MEDROL) 40 mg EVERY 12 HOURS IVP 04/01/20 11:30 06/30/20 11:29 04/04/20 08:12 Vitamin D (Vitamin D) 1,000 unit DAILY ORAL 03/30/20 09:00 04/29/20 08:59 04/04/20 08:11 Zinc Sulfate (Zinc Sulfate) 220 mg DAILY ORAL 03/30/20 09:00 06/28/20 08:59 04/04/20 08:11 Breezy Kowalski MD Apr 04, 2020 11:03
--- NOTE | 2020-04-04 11:07 | NUR ---
RADIOLOGY DEPT. CHEST X-RAY DONE.-P.DYE
--- NOTE | 2020-04-04 11:08 | NUR ---
NURSE NOTES: Earlier with Estefany from RT, tried putting patient on high flow 02 patient not tolerating well low [address] Gleason. Received orders to place patient on BIPAP. Patient currently on BIPAP setting with rate 14 IPAP 14 EPAP 8 FI02 100%%. 02 saturation 92-93% received orders for ABG and chest xray. orders noted and carried out.
--- NOTE | 2020-04-04 11:25 | NUR ---
CASE MANAGEMENT:REVIEW 04/04/20 SI: COVID PNA. RESPIRATORY DISTRESS 97.9 92 20 125/70 95% ON 15L/ 100% BIPAP WBC+15.5 PO2-47.6 HCO3+29.6 O2 SAT 83.5% IS: IV SOLUMEDROL Q12 LEVEMIR SQ QHS LOVENOX SQ Q12 ZINC PO QD VIT C PO QD VIT D PO QD : TELEMETRY STATUS DCP: FROM HOME PLAN: COMPLETED REMDESIVIR WEAN OXYGEN
--- NOTE | 2020-04-04 11:50 | Diagnostic Imaging Report ---
Indication: Chest pain Technique: One view of the chest Comparison: 04/01/2020 Findings: Unchanged bilateral infiltrates. The heart is upper limits normal in size. Impression: Unchanged, over 3 days, findings as above.
[2020-04-04 12:00] VITALS: BP 118/68
[2020-04-04 16:00] VITALS: BP 121/70
--- NOTE | 2020-04-04 19:52 | NUR ---
NURSE HAND-OFF REPORT: Important Events on Shift:COVID MONITORING. O2 MONITORING. PLACED ON BIPAP Patient Status: STABLE Diet: REG Pending Orders: N.A Pending Results/Labs:N.A Pending MD notification:N.A Latest Vital Signs: Temperature 98.0 , Pulse 77 , B/P 121 /70 , Respiratory Rate 24 , O2 SAT 93 , Non-Rebreather, O2 Flow Rate 15.0 . Vital Sign Comment: STABLE EKG Rhythm: Sinus Rhythm Rhythm change?: N MD Notified?: - MD Response: Latest Park Fall Score: 20 Fall Risk: Low Risk Safety Measures: Call light Within Reach, Bed Alarm Zone 1, Side Rails Side Rails x2, Bed position Low and Locked. Fall Precautions: Yellow Socks Report given to ALLY Patton.
--- NOTE | 2020-04-04 19:55 | NUR ---
NURSE NOTES: Important Events on Shift: Received report from Anu Stern RN. Pt reportedly began to desaturate on AM shift, BiPAP 15/8, FiO2 100%. Pt currently saturating at 93%. Pt denies pain, no signs or symptoms of distress noted. Will continue to monitor closely. Will continue plan of care. Patient Status: Diet: Reg (on hold r/t BiPAP) Pending Orders: None Pending Results/Labs: CRP, CBC, Mag, BNP Pending MD notification: New diet order r/t change to BiPAP. left for Cee, awaiting call back. Latest Vital Signs: Temperature 97.7 , Pulse 80 , B/P 139 /81 , Respiratory Rate 24 , O2 SAT 92 , BiPAP 15/8, FiO2 100%, O2 Flow Rate 15.0 . Vital Sign Comment: HX desaturation, BIPAP started this AM. EKG Rhythm: Sinus Rhythm Rhythm change?: N MD Notified?: - MD Response: Latest Park Fall Score: 20 Fall Risk: Low Risk Safety Measures: YES Call light Within Reach, Bed Alarm Zone 1, Side Rails Side Rails x3, Bed position Low and Locked. Fall Precautions: YES Yellow Socks Yellow Gown Door Sign Patient Fall Education YES
[2020-04-04 20:00] VITALS: BP 121/70
--- NOTE | 2020-04-04 21:30 | NUR ---
NURSE NOTES: Received order from Cee to continue regular diet as tolerated, monitor closely with RT when feeding. Orders entered and carried out. Will continue to monitor closely. Will continue plan of care.
[2020-04-05] VITALS: BP 139/81
--- NOTE | 2020-04-05 00:08 | Cardiology Progress Note ---
Subjective DATE OF SERVICE: Apr 04, 2020 Increasingly hypoxic today; now on bipap. I spoke with his son and on the phone today. They were updated on status, and made aware that further deterioration in oxygenation will require ventilator support. They were also made aware of up to 50% mortality in such a circumstance. They were reassured that maximum therapies have been, and will continue to be given. Glucose elevated on steroids - but improved with on-going insulin adjustments. CXR (04/04) No change in bilateral infiltrates. Objective Last 24 Hour Vital Signs Date Time Temp Pulse Resp B/P (MAP) Pulse Ox O2 Delivery O2 Flow Rate FiO2 04/04/20 23:35 76 26 93 100 04/04/20 21:23 73 29 94 100 04/04/20 19:30 75 25 94 100 04/04/20 17:00 77 24 93 100 04/04/20 16:00 98.0 84 22 121/70 (87) 94 04/04/20 16:00 75 04/04/20 16:00 100 04/04/20 14:30 83 24 91 100 04/04/20 12:31 79 22 94 100 04/04/20 12:00 77 04/04/20 12:00 98.4 79 22 118/68 (85) 94 04/04/20 11:00 100 04/04/20 10:30 74 23 92 100 04/04/20 10:30 79 23 92 100 04/04/20 09:00 Non-Rebreather 15.0 Bi-pap 04/04/20 08:00 97.9 90 20 125/70 (88) 95 04/04/20 08:00 92 04/04/20 04:00 97.7 73 16 117/64 (81) 98 04/04/20 04:00 68 HEENT: normal ENT inspection RHYTHM: NSR LUNGS: bilateral rhonchi CARDIAC: regular rhythm, normal S1 and S2 ABDOMEN: normal bowel sounds, non tender, other - obese EXTREMITIES: normal range of motion, non-tender, trace edema Laboratory Tests Test 04/04/20 08:34 04/04/20 11:30 04/04/20 12:29 04/04/20 17:26 Arterial Blood pH 7.426 (7.350-7.450) 7.443 (7.350-7.450) Arterial Blood Partial Pressure CO2 46.1 mmHg (35.0-45.0) H 41.3 mmHg (35.0-45.0) Arterial Blood Partial Pressure O2 47.6 mmHg (75.0-100.0) 52.5 mmHg (75.0-100.0) L Arterial Blood HCO3 29.6 mmol/L (22.0-26.0) H 27.6 mmol/L (22.0-26.0) H Arterial Blood Oxygen Saturation 83.5 % (95-100) *L 87.2 % (95-100) *L Arterial Blood Base Excess 4.4 (-2-2) H 3.2 (-2-2) H Eliazar Test Positive Positive POC Whole Blood Glucose 214 MG/DL (74-106) H Pending Test 04/04/20 20:31 POC Whole Blood Glucose 170 MG/DL (74-106) H Assessment/Plan Assessment/Plan Covid 19 PNA Hypoxia Diabetes mellitus exacerbated by steroids No clinical signs of CHF; BNP normal range. Orders and POC updated. Continuing efforts to maximize oxygenation. (Bipap/proning) Raul Mike MD Apr 05, 2020 00:08
[2020-04-05 04:00] VITALS: BP 144/85
[2020-04-05] MEDS: Levemir Flexpen SUBQ SCH ×2 (06:31→21:01)
[2020-04-05] MEDS: NovoLOG Insulin Flexpen SUBQ SCH ×4 (06:32→21:02)
--- NOTE | 2020-04-05 07:13 | NUR ---
NURSE HAND-OFF REPORT: Important Events on Shift: Pt continues to saturate around 97% on BiPAP. Patient Status: FC Diet: Reg Pending Orders: none Pending Results/Labs: none Pending MD notification: Possible xfer to SDU r/t BiPAP Latest Vital Signs: Temperature 97.0 , Pulse 81 , B/P 144 /85 , Respiratory Rate 24 , O2 SAT 92 , BiPAP 15/8, Fio2 100%, O2 Flow Rate 15.0 . Vital Sign Comment: EKG Rhythm: Sinus Rhythm Rhythm change?: N MD Notified?: - MD Response: Latest Park Fall Score: 20 Fall Risk: Low Risk Safety Measures: Call light Within Reach, Bed Alarm Zone 1, Side Rails Side Rails x3, Bed position Low and Locked. Fall Precautions: YES Yellow Socks Yellow Gown Door Sign Patient Fall Education YES Report given to IVONNE Diego RN
--- NOTE | 2020-04-05 07:20 | NUR ---
RESPIRATORY NOTE: PT received on BIPAP with current settings: 16/10 RR:14, 100%. Full face mask secure and properly in place. Foam tape in place with no facial wounds noted at this time. PT asked if he would like to try to facial mask but he prefers the full face mask. Will continue to monitor.
--- NOTE | 2020-04-05 07:31 | NUR ---
NURSE NOTES: Pt received from Pooja. Pt on continuous BiPap, Contacted MD to get transfer order, order received. Will contact RN sup shortly. Pt sleeping with no distress noted. Bed low and locked. Call light within reach.
--- NOTE | 2020-04-05 07:54 | Pulmonology Progress Note ---
Subjective ROS Limited/Unobtainable: Yes Constitutional: Denies: fever, chills Gastrointestinal/Abdominal: Denies: nausea, vomiting, diarrhea Allergies: Coded Allergies: No Known Allergies (Unverified , 03/29/20) Subjective asked to follow doing poorly diffuse infiltrates on solumedrol Objective Last 24 Hour Vital Signs Date Time Temp Pulse Resp B/P (MAP) Pulse Ox O2 Delivery O2 Flow Rate FiO2 04/05/20 05:23 81 24 92 100 04/05/20 04:00 97.0 74 24 144/85 (104) 97 04/05/20 04:00 84 04/05/20 03:36 81 23 94 100 04/05/20 03:04 100 04/05/20 01:51 80 24 89 100 04/05/20 00:00 97.7 76 25 139/81 (100) 92 04/05/20 00:00 100 04/05/20 00:00 72 04/04/20 23:35 76 26 93 100 04/04/20 21:23 73 29 94 100 04/04/20 21:00 Bi-pap Bi-pap 04/04/20 20:00 100 04/04/20 20:00 98.2 77 25 121/70 (87) 93 04/04/20 20:00 74 04/04/20 19:30 75 25 94 100 04/04/20 17:00 77 24 93 100 04/04/20 16:00 98.0 84 22 121/70 (87) 94 04/04/20 16:00 75 04/04/20 16:00 100 04/04/20 14:30 83 24 91 100 04/04/20 12:31 79 22 94 100 04/04/20 12:00 77 04/04/20 12:00 98.4 79 22 118/68 (85) 94 04/04/20 11:00 100 04/04/20 10:30 74 23 92 100 04/04/20 10:30 79 23 92 100 04/04/20 09:00 Non-Rebreather 15.0 Bi-pap 04/04/20 08:00 97.9 90 20 125/70 (88) 95 04/04/20 08:00 92 Intake and Output 04/04/20 04/05/20 19:00 07:00 Intake Total 360 ml Output Total 650 ml Balance -290 ml Intake Oral 360 ml Output Urine Total 650 ml # Voids 3 Objective deferred due to COVID Laboratory Tests 04/04/20 08:34: Arterial Blood pH 7.426, Arterial Blood Partial Pressure CO2 46.1H, Arterial Blood Partial Pressure O2 47.6*L, Arterial Blood HCO3 29.6H, Arterial Blood Oxygen Saturation 83.5*L, Arterial Blood Base Excess 4.4H, Eliazar Test Positive 04/04/20 11:30: POC Whole Blood Glucose 214H 04/04/20 12:29: Arterial Blood pH 7.443, Arterial Blood Partial Pressure CO2 41.3, Arterial Blood Partial Pressure O2 52.5L, Arterial Blood HCO3 27.6H, Arterial Blood Oxygen Saturation 87.2*L, Arterial Blood Base Excess 3.2H, Eliazar Test Positive 04/04/20 17:26: POC Whole Blood Glucose [Pending] 04/04/20 20:31: POC Whole Blood Glucose 170H 04/05/20 05:33: POC Whole Blood Glucose 191H Current Medications Medications (Trade) Dose Ordered Sig/Compa Route PRN Reason Start Time Stop Time Status Last Admin Dose Admin Acetaminophen (Tylenol) 650 mg Q4H PRN ORAL Mild Pain (Pain Scale 1-3) 03/29/20 22:45 04/28/20 22:44 04/01/20 08:27 Acetaminophen (Tylenol) 650 mg Q4H PRN ORAL Temp >100.5 03/29/20 22:45 04/28/20 22:44 Albuterol Sulfate (Proventil MDI) 2 puff Q4H PRN INH Shortness of Breath 03/31/20 07:00 06/29/20 06:59 04/02/20 23:55 Artificial Tears (Akwa-Tears) 2 drop Q2H PRN BOTH EYES Dry Eyes 03/31/20 07:00 04/30/20 06:59 03/31/20 16:00 Ascorbic Acid (Vitamin C) 500 mg DAILY ORAL 03/30/20 09:00 04/29/20 08:59 04/04/20 08:12 Dextrose (Dextrose 50%) 25 ml Q30M PRN IV Hypoglycemia 03/30/20 02:00 06/28/20 01:59 Dextrose (Dextrose 50%) 50 ml Q30M PRN IV Hypoglycemia 03/30/20 02:00 06/28/20 01:59 Enoxaparin Sodium (Lovenox) 80 mg Q12H SUBQ 03/30/20 09:00 06/28/20 08:59 04/04/20 22:29 Famotidine (Pepcid) 20 mg DAILY ORAL 03/30/20 09:00 06/28/20 08:59 04/04/20 08:12 Guaifenesin/ Dextromethorphan (Robitussin DM Syrup) 10 ml Q4H PRN ORAL For Cough 03/31/20 11:30 06/29/20 11:29 04/01/20 20:42 Insulin Aspart (NovoLOG) BEFORE MEALS AND HS SUBQ 03/30/20 06:30 06/28/20 06:29 04/05/20 06:32 Insulin Detemir (Levemir) 6 units ACBREAKFAST SUBQ 04/01/20 06:30 06/30/20 06:29 04/05/20 06:31 Insulin Detemir (Levemir) 12 units BEDTIME SUBQ 04/03/20 21:00 06/29/20 00:29 04/04/20 20:41 Methylprednisolone Sodium Succinate (Solu-MEDROL) 40 mg EVERY 12 HOURS IVP 04/01/20 11:30 06/30/20 11:29 04/04/20 22:29 Vitamin D (Vitamin D) 1,000 unit DAILY ORAL 03/30/20 09:00 04/29/20 08:59 04/04/20 08:11 Zinc Sulfate (Zinc Sulfate) 220 mg DAILY ORAL 03/30/20 09:00 06/28/20 08:59 04/04/20 08:11 Assessment/Plan Assessment/Plan 1. covid 19 pneumonia s/p remdesivir 2. diabetes mellitus 3 respiratory failure 4. Hypoxemic respiratory failure P 1. continue solumedrol 2. continue isolation 3. repeat ABG 4. Venous US 5. at risk for intubation impression, plan, and exam edited and reviewed in detail care discussed with Mehul Dee MD Apr 05, 2020 07:54
[2020-04-05 08:00] VITALS: BP 120/81
[2020-04-05] MEDS: Vitamin D 1000 units Tab ORAL SCH (08:13)
[2020-04-05] MEDS: Ascorbic Acid 500mg tab ORAL SCH (08:13)
[2020-04-05] MEDS: Zinc Sulfate 220mg ORAL SCH (08:13)
[2020-04-05] MEDS: Solu-MEDROL 40mg Inj IVP SCH ×2 (08:13→20:49)
[2020-04-05] MEDS: Enoxaparin 80mg Inj SUBQ SCH ×2 (08:15→20:50)
--- NOTE | 2020-04-05 08:42 | NUR ---
RADIOLOGY: PCXR COMPLETED 0800 HRS. NF
[2020-04-05 09:32] LABS: HEMATOCRIT 42.3 % (42.0-52.0); HEMOGLOBIN 13.7 G/DL (14.2-18.0); MEAN CORPUSCULAR VOLUME 97 FL (80-99); PLATELET COUNT 387 K/UL (150-450); RED BLOOD COUNT 4.37 M/UL (4.70-6.10); WHITE BLOOD COUNT 17.3 K/UL (4.8-10.8)
--- NOTE | 2020-04-05 09:42 | NUR ---
RD ASSESSMENT & RECOMMENDATIONS SEE CARE ACTIVITY FOR COMPLETE ASSESSMENT DAILY ESTIMATED NEEDS: Needs based on Pulmonary, DM 75kg abw 20-25 kcals/kg 0401-7795 total kcals 1-1.5 g protein/kg 75-113 g total protein 20-30 mL/kg 4008-7252 total fluid mLs NUTRITION DIAGNOSIS: Altered nutrition related lab values r/t DM, steroidal meds as evidenced by A1C 8.4, BG 209, on solumedrol. CURRENT DIET: Regular PO DIET RECOMMENDATIONS: With BIPAP, diet as tolerated -> maintain Regular ADDITIONAL RECOMMENDATIONS: 1) Monitor resp status (now on bipap), and po intake CCHO diet w/ consistently good po intake 2) Insulin adjustments w/ poor po intake 3) Obtain a calibrated bed scale wt
[2020-04-05 10:04] LABS: ALANINE AMINOTRANSFERASE 35 U/L (12-78); ALBUMIN 1.8 G/DL (3.4-5.0); ALBUMIN/GLOBULIN RATIO 0.3 (1.0-2.7); ALKALINE PHOSPHATASE 69 U/L (46-116); ANION GAP 7 mmol/L (5-15); ASPARTATE AMINO TRANSFERASE 28 U/L (15-37); BILIRUBIN,TOTAL 0.5 MG/DL (0.2-1.0); BLOOD UREA NITROGEN 23 mg/dL (7-18); CARBON DIOXIDE 29 MMOL/L (21-32); CHLORIDE 106 MMOL/L (98-107); CREATININE 0.6 MG/DL (0.55-1.30); POTASSIUM 4.5 MMOL/L (3.5-5.1); SODIUM 142 MMOL/L (136-145)
--- NOTE | 2020-04-05 10:29 | NUR ---
NURSE NOTES: Received report from ALLY Andersen. Patient AOx4, on Continuous BIPAP 15/8 Fio2 100%, O 2sat 94% at this time. IV on right hand 22G, asymptomatic, patent, intact. Bed in lowest position, side rails upx3 , call light within reach, bed alarm on ,Will continue to monitor.
--- NOTE | 2020-04-05 10:29 | NUR ---
CASE MANAGEMENT:REVIEW 04/05/20 SI: SADA LOYOLA. RESPIRATORY DISTRESS 97.2 77 24 120/81 90% ON 15L/ 100% BIPAP WBC+17.3 BUN+23 CA-8.0 MAG+2.5 IS: IV SOLUMEDROL 40MG Q12 LEVEMIR SQ QHS LOVENOX SQ Q12 ZINC PO QD VIT C PO QD VIT D PO QD PEPCID PO QD : TELEMETRY STATUS DCP: FROM HOME PLAN: COMPLETED REMDESIVIR WEAN OXYGEN Addendum: 04/05/20 at 1035 by CANELO FAY LVN LVN UPGRADED TO STEP DOWN UNIT
--- NOTE | 2020-04-05 10:33 | NUR ---
NURSE NOTES: Handoff report given to Vida Massey. Addendum: 04/05/20 at 1034 by Nathaly Xiao RN Pt transferred with RT at bedside
--- NOTE | 2020-04-05 10:34 | NUR ---
NURSE NOTES: Patient refused to count money and put in in the safe. Patient refused to sign paper at this time, Will ask again.
--- NOTE | 2020-04-05 11:50 | NUR ---
RESPIRATORY NOTE: ABG drawn at this time. Results reported to Ann CANALES. Will continue to monitor.
[2020-04-05 12:00] VITALS: BP 128/63
--- NOTE | 2020-04-05 15:24 | Diagnostic Imaging Report ---
Indication: Shortness of breath Technique: One view of the chest Comparison: 04/04/2020 Findings: Allowing for differences in exposure, probably unchanged bilateral infiltrates. Upper limits normal heart size. Spaces remain clear. Impression: Unchanged, over one day, findings as above.
--- NOTE | 2020-04-05 15:30 | Infectious Diseases Prog Note ---
Assessment/Plan Assessment/Plan A; Severe COVID19 pneumonia Hypoxemia DM Lymphocytopenia Leukocytosis P: Finished Remdesivir course Continue Solumedrol Subjective ROS Limited/Unobtainable: Yes Constitutional: Reports: other - transferred from telemetry to [facility]; Denies: fev er Respiratory: Reports: shortness of breath, dry cough Allergies: Coded Allergies: No Known Allergies (Unverified , 03/29/20) Objective Last 24 Hour Vital Signs Date Time Temp Pulse Resp B/P (MAP) Pulse Ox O2 Delivery O2 Flow Rate FiO2 04/05/20 12:00 100 04/05/20 12:00 98.0 78 24 128/63 (84) 92 04/05/20 12:00 Bi-pap 15.0 Bi-pap 04/05/20 11:46 71 04/05/20 10:30 76 24 94 100 04/05/20 09:00 Bi-pap 15.0 Bi-pap 04/05/20 08:00 100 04/05/20 08:00 97.2 84 24 120/81 (94) 90 04/05/20 08:00 77 04/05/20 07:20 93 28 93 100 04/05/20 05:23 81 24 92 100 04/05/20 04:00 97.0 74 24 144/85 (104) 97 04/05/20 04:00 84 04/05/20 03:36 81 23 94 100 04/05/20 03:04 100 04/05/20 01:51 80 24 89 100 04/05/20 00:00 97.7 76 25 139/81 (100) 92 04/05/20 00:00 100 04/05/20 00:00 72 04/04/20 23:35 76 26 93 100 04/04/20 21:23 73 29 94 100 04/04/20 21:00 Bi-pap Bi-pap 04/04/20 20:00 100 04/04/20 20:00 98.2 77 25 121/70 (87) 93 04/04/20 20:00 74 04/04/20 19:30 75 25 94 100 04/04/20 17:00 77 24 93 100 04/04/20 16:00 98.0 84 22 121/70 (87) 94 04/04/20 16:00 75 04/04/20 16:00 100 Height (Feet): 5 Height (Inches): 7.00 Weight (Pounds): 195 HEENT: mucous membranes moist Respiratory/Chest: other - on BIPAP Cardiovascular: normal rate Abdomen: soft, non tender Extremities: no edema Neurologic/Psychiatric: alert, responsive Laboratory Tests Test 04/04/20 17:26 04/04/20 20:31 04/05/20 05:33 04/05/20 08:55 POC Whole Blood Glucose Pending 170 MG/DL (74-106) H 191 MG/DL (74-106) H White Blood Count 17.3 K/UL (4.8-10.8) H Red Blood Count 4.37 M/UL (4.70-6.10) L Hemoglobin 13.7 G/DL (14.2-18.0) L Hematocrit 42.3 % (42.0-52.0) Mean Corpuscular Volume 97 FL (80-99) Mean Corpuscular Hemoglobin 31.3 PG (27.0-31.0) H Mean Corpuscular Hemoglobin Concent 32.3 G/DL (32.0-36.0) Red Cell Distribution Width 15.0 % (11.6-14.8) H Platelet Count 387 K/UL (150-450) Mean Platelet Volume 6.2 FL (6.5-10.1) L Neutrophils (%) (Auto) % (45.0-75.0) Lymphocytes (%) (Auto) % (20.0-45.0) Monocytes (%) (Auto) % (1.0-10.0) Eosinophils (%) (Auto) % (0.0-3.0) Basophils (%) (Auto) % (0.0-2.0) Differential Total Cells Counted 100 Neutrophils % (Manual) 86 % (45-75) H Lymphocytes % (Manual) 10 % (20-45) L Monocytes % (Manual) 4 % (1-10) Eosinophils % (Manual) 0 % (0-3) Basophils % (Manual) 0 % (0-2) Band Neutrophils 0 % (0-8) Platelet Estimate Adequate Platelet Morphology Normal Anisocytosis 1+ Sodium Level 142 MMOL/L (136-145) Potassium Level 4.5 MMOL/L (3.5-5.1) Chloride Level 106 MMOL/L (98-107) Carbon Dioxide Level 29 MMOL/L (21-32) Anion Gap 7 mmol/L (5-15) Blood Urea Nitrogen 23 mg/dL (7-18) H Creatinine 0.6 MG/DL (0.55-1.30) Estimat Glomerular Filtration Rate > 60 mL/min (>60) Glucose Level 164 MG/DL (74-106) H Calcium Level 8.0 MG/DL (8.5-10.1) L Magnesium Level 2.5 MG/DL (1.8-2.4) H Total Bilirubin 0.5 MG/DL (0.2-1.0) Aspartate Amino Transf (AST/SGOT) 28 U/L (15-37) Alanine Aminotransferase (ALT/SGPT) 35 U/L (12-78) Alkaline Phosphatase 69 U/L (46-116) C-Reactive Protein, Quantitative 9.9 mg/dL (0.00-0.90) H Pro-B-Type Natriuretic Peptide 117 pg/mL (0-125) Total Protein 7.2 G/DL (6.4-8.2) Albumin 1.8 G/DL (3.4-5.0) L Globulin 5.4 g/dL Albumin/Globulin Ratio 0.3 (1.0-2.7) L Test 04/05/20 11:35 04/05/20 11:50 POC Whole Blood Glucose 185 MG/DL (74-106) H Arterial Blood pH 7.427 (7.350-7.450) Arterial Blood Partial Pressure CO2 42.6 mmHg (35.0-45.0) Arterial Blood Partial Pressure O2 53.1 mmHg (75.0-100.0) L Arterial Blood HCO3 27.5 mmol/L (22.0-26.0) H Arterial Blood Oxygen Saturation 87.5 % (95-100) *L Arterial Blood Base Excess 2.7 (-2-2) H Eliazar Test Positive Current Medications Medications (Trade) Dose Ordered Sig/Compa Route PRN Reason Start Time Stop Time Status Last Admin Dose Admin Acetaminophen (Tylenol) 650 mg Q4H PRN ORAL Mild Pain (Pain Scale 1-3) 03/29/20 22:45 04/28/20 22:44 04/01/20 08:27 Acetaminophen (Tylenol) 650 mg Q4H PRN ORAL Temp >100.5 03/29/20 22:45 04/28/20 22:44 Albuterol Sulfate (Proventil MDI) 2 puff Q4H PRN INH Shortness of Breath 03/31/20 07:00 06/29/20 06:59 04/02/20 23:55 Artificial Tears (Akwa-Tears) 2 drop Q2H PRN BOTH EYES Dry Eyes 03/31/20 07:00 04/30/20 06:59 03/31/20 16:00 Ascorbic Acid (Vitamin C) 500 mg DAILY ORAL 03/30/20 09:00 04/29/20 08:59 04/05/20 08:13 Dextrose (Dextrose 50%) 25 ml Q30M PRN IV Hypoglycemia 03/30/20 02:00 06/28/20 01:59 Dextrose (Dextrose 50%) 50 ml Q30M PRN IV Hypoglycemia 03/30/20 02:00 06/28/20 01:59 Enoxaparin Sodium (Lovenox) 80 mg Q12H SUBQ 03/30/20 09:00 06/28/20 08:59 04/05/20 08:15 Famotidine (Pepcid) 20 mg DAILY ORAL 03/30/20 09:00 06/28/20 08:59 04/05/20 08:13 Guaifenesin/ Dextromethorphan (Robitussin DM Syrup) 10 ml Q4H PRN ORAL For Cough 03/31/20 11:30 06/29/20 11:29 04/01/20 20:42 Insulin Aspart (NovoLOG) BEFORE MEALS AND HS SUBQ 03/30/20 06:30 06/28/20 06:29 04/05/20 11:42 Insulin Detemir (Levemir) 6 units ACBREAKFAST SUBQ 04/01/20 06:30 06/30/20 06:29 04/05/20 06:31 Insulin Detemir (Levemir) 12 units BEDTIME SUBQ 04/03/20 21:00 06/29/20 00:29 04/04/20 20:41 Methylprednisolone Sodium Succinate (Solu-MEDROL) 40 mg EVERY 12 HOURS IVP 04/01/20 11:30 06/30/20 11:29 04/05/20 08:13 Vitamin D (Vitamin D) 1,000 unit DAILY ORAL 03/30/20 09:00 04/29/20 08:59 04/05/20 08:13 Zinc Sulfate (Zinc Sulfate) 220 mg DAILY ORAL 03/30/20 09:00 06/28/20 08:59 04/05/20 08:13 Jose Washington MD Apr 05, 2020 15:30
[2020-04-05 16:00] VITALS: BP 124/77
[2020-04-05] MEDS: D5NS 1,000 ML IV SCH (17:39)
--- NOTE | 2020-04-05 19:30 | NUR ---
NURSE HAND-OFF REPORT: Important Events on Shift: transfer to [facility] Patient Status: stable/guarded Diet: NPO Pending Orders: na Pending Results/Labs:na Pending MD notification:na Latest Vital Signs: Temperature 98.6 , Pulse 93 , B/P 124 /77 , Respiratory Rate 28 , O2 SAT 92 , Non-Rebreather, O2 Flow Rate . Vital Sign Comment: stable EKG Rhythm: Sinus Rhythm Rhythm change?: N MD Notified?: - MD Response: Latest Park Fall Score: 20 Fall Risk: Low Risk Safety Measures: Call light Within Reach, Bed Alarm Zone 1, Side Rails Side Rails x3, Bed position Low and Locked. Fall Precautions: Yellow Socks Yellow Gown Door Sign Patient Fall Education Report given to ALLY Downing.
--- NOTE | 2020-04-05 19:30 | NUR ---
NURSE NOTES: Received report form days RN. Patient assessed. Vitals are stable at this time. Patient currently onn bipap at 15/8 and a FIO2 of 100%. Patient tolerating the bipap well. Patient is a&ox4. Patient is NPO at this time. Patient has fluids infusing in Right hand PIV. Patient is on bedrest at this time and resting with no complaints. RN will continue to monitor.
[2020-04-05 20:00] VITALS: BP 145/78
[2020-04-06] VITALS (20 sets, daily range): BP systolic 65–151; BP diastolic 38–89
--- NOTE | 2020-04-06 | NUR ---
NURSE NOTES: Patient sleeping at this time. Vitals are stable. Patient is in NPO so all fluids removed from bedside. Patient uses urinal and had 600ml out upon assessment. RN will continue to monitor.
--- NOTE | 2020-04-06 01:38 | Cardiology Progress Note ---
Subjective DATE OF SERVICE: Apr 05, 2020 Increasingly hypoxic since yesterday; remains on bipap. I spoke with his son and on the phone again today. They were updated on status, and made aware that further deterioration in oxygenation will require ventilator support. They were also made aware of up to 50% mortality in such a circumstance. They were reassured that maximum therapies have been, and will continue to be given. Glucose elevated on steroids - but improved with on-going insulin adjustments. CXR (04/05) No change in bilateral infiltrates. Objective Last 24 Hour Vital Signs Date Time Temp Pulse Resp B/P (MAP) Pulse Ox O2 Delivery O2 Flow Rate FiO2 04/06/20 00:00 98.4 24 134/58 (83) 88 04/06/20 00:00 100 04/06/20 00:00 Bi-pap Bi-pap 04/05/20 23:35 71 27 88 100 04/05/20 20:00 100 04/05/20 20:00 98.3 84 34 145/78 (100) 90 04/05/20 20:00 Bi-pap Bi-pap 04/05/20 19:43 76 04/05/20 19:13 78 23 92 100 04/05/20 17:00 93 28 92 100 04/05/20 16:00 100 04/05/20 16:00 98.6 78 35 124/77 (93) 94 04/05/20 16:00 Bi-pap Bi-pap 04/05/20 15:47 74 04/05/20 15:14 72 25 95 100 04/05/20 12:00 100 04/05/20 12:00 98.0 78 24 128/63 (84) 92 04/05/20 12:00 Bi-pap Bi-pap 04/05/20 11:46 71 04/05/20 10:30 76 24 94 100 04/05/20 09:00 Bi-pap 15.0 Bi-pap 04/05/20 08:00 100 04/05/20 08:00 97.2 84 24 120/81 (94) 90 04/05/20 08:00 77 04/05/20 07:20 93 28 93 100 04/05/20 05:23 81 24 92 100 04/05/20 04:00 97.0 74 24 144/85 (104) 97 04/05/20 04:00 84 04/05/20 03:36 81 23 94 100 04/05/20 03:04 100 04/05/20 01:51 80 24 89 100 HEENT: normal ENT inspection RHYTHM: NSR LUNGS: bilateral rhonchi CARDIAC: regular rhythm, normal S1 and S2 ABDOMEN: normal bowel sounds, non tender, other - obese EXTREMITIES: normal range of motion, non-tender, trace edema Laboratory Tests Test 04/05/20 05:33 04/05/20 08:55 04/05/20 11:35 04/05/20 11:50 POC Whole Blood Glucose 191 MG/DL (74-106) H 185 MG/DL (74-106) H White Blood Count 17.3 K/UL (4.8-10.8) H Red Blood Count 4.37 M/UL (4.70-6.10) L Hemoglobin 13.7 G/DL (14.2-18.0) L Hematocrit 42.3 % (42.0-52.0) Mean Corpuscular Volume 97 FL (80-99) Mean Corpuscular Hemoglobin 31.3 PG (27.0-31.0) H Mean Corpuscular Hemoglobin Concent 32.3 G/DL (32.0-36.0) Red Cell Distribution Width 15.0 % (11.6-14.8) H Platelet Count 387 K/UL (150-450) Mean Platelet Volume 6.2 FL (6.5-10.1) L Neutrophils (%) (Auto) % (45.0-75.0) Lymphocytes (%) (Auto) % (20.0-45.0) Monocytes (%) (Auto) % (1.0-10.0) Eosinophils (%) (Auto) % (0.0-3.0) Basophils (%) (Auto) % (0.0-2.0) Differential Total Cells Counted 100 Neutrophils % (Manual) 86 % (45-75) H Lymphocytes % (Manual) 10 % (20-45) L Monocytes % (Manual) 4 % (1-10) Eosinophils % (Manual) 0 % (0-3) Basophils % (Manual) 0 % (0-2) Band Neutrophils 0 % (0-8) Platelet Estimate Adequate Platelet Morphology Normal Anisocytosis 1+ Sodium Level 142 MMOL/L (136-145) Potassium Level 4.5 MMOL/L (3.5-5.1) Chloride Level 106 MMOL/L (98-107) Carbon Dioxide Level 29 MMOL/L (21-32) Anion Gap 7 mmol/L (5-15) Blood Urea Nitrogen 23 mg/dL (7-18) H Creatinine 0.6 MG/DL (0.55-1.30) Estimat Glomerular Filtration Rate > 60 mL/min (>60) Glucose Level 164 MG/DL (74-106) H Calcium Level 8.0 MG/DL (8.5-10.1) L Magnesium Level 2.5 MG/DL (1.8-2.4) H Total Bilirubin 0.5 MG/DL (0.2-1.0) Aspartate Amino Transf (AST/SGOT) 28 U/L (15-37) Alanine Aminotransferase (ALT/SGPT) 35 U/L (12-78) Alkaline Phosphatase 69 U/L (46-116) C-Reactive Protein, Quantitative 9.9 mg/dL (0.00-0.90) H Pro-B-Type Natriuretic Peptide 117 pg/mL (0-125) Total Protein 7.2 G/DL (6.4-8.2) Albumin 1.8 G/DL (3.4-5.0) L Globulin 5.4 g/dL Albumin/Globulin Ratio 0.3 (1.0-2.7) L Arterial Blood pH 7.427 (7.350-7.450) Arterial Blood Partial Pressure CO2 42.6 mmHg (35.0-45.0) Arterial Blood Partial Pressure O2 53.1 mmHg (75.0-100.0) L Arterial Blood HCO3 27.5 mmol/L (22.0-26.0) H Arterial Blood Oxygen Saturation 87.5 % (95-100) *L Arterial Blood Base Excess 2.7 (-2-2) H Eliazar Test Positive Test 04/05/20 17:27 04/05/20 20:43 POC Whole Blood Glucose Pending 209 MG/DL (74-106) H Assessment/Plan Assessment/Plan Covid 19 PNA Hypoxia Diabetes mellitus exacerbated by steroids No clinical signs of CHF; BNP normal range. Orders and POC updated. Continuing efforts to maximize oxygenation. (Bipap/proning) Raul Mike MD Apr 06, 2020 01:38
[2020-04-06 05:13] LABS: HEMATOCRIT 43.1 % (42.0-52.0); HEMOGLOBIN 13.6 G/DL (14.2-18.0); MEAN CORPUSCULAR VOLUME 98 FL (80-99); PLATELET COUNT 369 K/UL (150-450); RED BLOOD COUNT 4.41 M/UL (4.70-6.10); RED CELL DISTRIBUTION WIDTH 15.2 % (11.6-14.8); WHITE BLOOD COUNT 17.6 K/UL (4.8-10.8)
[2020-04-06 05:51] LABS: ALANINE AMINOTRANSFERASE 29 U/L (12-78); ALBUMIN 1.7 G/DL (3.4-5.0); ALBUMIN/GLOBULIN RATIO 0.3 (1.0-2.7); ALKALINE PHOSPHATASE 68 U/L (46-116); ANION GAP 6 mmol/L (5-15); ASPARTATE AMINO TRANSFERASE 23 U/L (15-37); BILIRUBIN,TOTAL 0.5 MG/DL (0.2-1.0); BLOOD UREA NITROGEN 21 mg/dL (7-18); CALCIUM 8.3 MG/DL (8.5-10.1); CARBON DIOXIDE 28 MMOL/L (21-32); CHLORIDE 104 MMOL/L (98-107); CREATININE 0.7 MG/DL (0.55-1.30); POTASSIUM 4.8 MMOL/L (3.5-5.1); SODIUM 138 MMOL/L (136-145)
[2020-04-06] MEDS: D5NS 1,000 ML IV SCH ×2 (06:35→20:18)
[2020-04-06] MEDS: NovoLOG Insulin Flexpen SUBQ SCH ×4 (06:37→21:00)
[2020-04-06] MEDS: Levemir Flexpen SUBQ SCH ×2 (06:37→21:00)
[2020-04-06] MEDS: Zinc Sulfate 220mg ORAL SCH (09:00)
[2020-04-06] MEDS: Ascorbic Acid 500mg tab ORAL SCH (09:00)
[2020-04-06] MEDS: Enoxaparin 80mg Inj SUBQ SCH ×2 (09:00→23:05)
[2020-04-06] MEDS: Vitamin D 1000 units Tab ORAL SCH (09:00)
--- NOTE | 2020-04-06 09:29 | NUR ---
NURSE NOTES: Doctor Arnoldo notified ABG this morning and low oxygen saturation-acknowledged
--- NOTE | 2020-04-06 10:20 | Pulmonology Progress Note ---
Subjective ROS Limited/Unobtainable: Yes Constitutional: Reports: other - transferred from telemetry to [facility]; Denies: fever Gastrointestinal/Abdominal: Denies: nausea, vomiting, diarrhea Allergies: Coded Allergies: No Known Allergies (Unverified , 03/29/20) Subjective doing poorly diffuse infiltrates on solumedrol Objective Last 24 Hour Vital Signs Date Time Temp Pulse Resp B/P (MAP) Pulse Ox O2 Delivery O2 Flow Rate FiO2 04/06/20 08:00 100 04/06/20 08:00 Bi-pap Bi-pap 04/06/20 08:00 81 04/06/20 08:00 98.9 86 22 149/78 (101) 86 04/06/20 04:00 100 04/06/20 04:00 98.9 86 22 149/78 (101) 86 04/06/20 04:00 Bi-pap Bi-pap 04/06/20 04:00 81 04/06/20 03:35 68 28 87 100 04/06/20 00:00 100 04/06/20 00:00 98.4 24 134/58 (83) 88 04/06/20 00:00 100 04/06/20 00:00 Bi-pap Bi-pap 04/05/20 23:35 71 27 88 100 04/05/20 20:00 100 04/05/20 20:00 98.3 84 34 145/78 (100) 90 04/05/20 20:00 Bi-pap Bi-pap 04/05/20 19:43 76 04/05/20 19:13 78 23 92 100 04/05/20 17:00 93 28 92 100 04/05/20 16:00 100 04/05/20 16:00 98.6 78 35 124/77 (93) 94 04/05/20 16:00 Bi-pap Bi-pap 04/05/20 15:47 74 04/05/20 15:14 72 25 95 100 04/05/20 12:00 100 04/05/20 12:00 98.0 78 24 128/63 (84) 92 04/05/20 12:00 Bi-pap Bi-pap 04/05/20 11:46 71 04/05/20 10:30 76 24 94 100 Intake and Output 04/05/20 04/06/20 19:00 07:00 Intake Total 172.5 ml 0 ml Output Total 900 ml 800 ml Balance -727.5 ml -800 ml Intake Oral 60 ml 0 ml IV Total 112.5 ml Output Urine Total 900 ml 800 ml Objective deferred due to COVID Laboratory Tests 04/05/20 11:35: POC Whole Blood Glucose 185H 04/05/20 11:50: Arterial Blood pH 7.427, Arterial Blood Partial Pressure CO2 42.6, Arterial Blood Partial Pressure O2 53.1L, Arterial Blood HCO3 27.5H, Arterial Blood Oxygen Saturation 87.5*L, Arterial Blood Base Excess 2.7H, Eliazar Test Positive 04/05/20 17:27: POC Whole Blood Glucose [Pending] 04/05/20 20:43: POC Whole Blood Glucose 209H 04/06/20 03:45: White Blood Count 17.6H, Red Blood Count 4.41L, Hemoglobin 13.6L, Hematocrit 43.1, Mean Corpuscular Volume 98, Mean Corpuscular Hemoglobin 30.8, Mean Corpuscular Hemoglobin Concent 31.5L, Red Cell Distribution Width 15.2H, Platelet Count 369, Mean Platelet Volume 6.8, Neutrophils (%) (Auto) , Lymphocytes (%) (Auto) , Monocytes (%) (Auto) , Eosinophils (%) (Auto) , Basophils (%) (Auto) , Differential Total Cells Counted 100, Neutrophils % (Manual) 90H, Lymphocytes % (Manual) 5L, Monocytes % (Manual) 5, Eosinophils % (Manual) 0, Basophils % (Manual) 0, Band Neutrophils 0, Platelet Estimate Adequate, Platelet Morphology Normal, Hypochromasia 1+, Anisocytosis 1+, Macroc ytosis 1+, Sodium Level 138, Potassium Level 4.8, Chloride Level 104, Carbon Dioxide Level 28, Anion Gap 6, Blood Urea Nitrogen 21H, Creatinine 0.7, Estimat Glomerular Filtration Rate > 60, Glucose Level 198H, Calcium Level 8.3L, Total Bilirubin 0.5, Aspartate Amino Transf (AST/SGOT) 23, Alanine Aminotransferase (ALT/SGPT) 29, Alkaline Phosphatase 68, Total Protein 7.2, Albumin 1.7L, Globulin 5.5, Albumin/Globulin Ratio 0.3L 04/06/20 08:21: Arterial Blood pH 7.418, Arterial Blood Partial Pressure CO2 44.0, Arterial Bloo d Partial Pressure O2 52.7L, Arterial Blood HCO3 27.8H, Arterial Blood Oxygen Saturation 86.9*L, Arterial Blood Base Excess 2.8H, Eliazar Test Positive Current Medications Medications (Trade) Dose Ordered Sig/Compa Route PRN Reason Start Time Stop Time Status Last Admin Dose Admin Acetaminophen (Tylenol) 650 mg Q4H PRN ORAL Mild Pain (Pain Scale 1-3) 03/29/20 22:45 04/28/20 22:44 04/01/20 08:27 Acetaminophen (Tylenol) 650 mg Q4H PRN ORAL Temp >100.5 03/29/20 22:45 04/28/20 22:44 Albuterol Sulfate (Proventil MDI) 2 puff Q4H PRN INH Shortness of Breath 03/31/20 07:00 06/29/20 06:59 04/02/20 23:55 Artificial Tears (Akwa-Tears) 2 drop Q2H PRN BOTH EYES Dry Eyes 03/31/20 07:00 04/30/20 06:59 03/31/20 16:00 Ascorbic Acid (Vitamin C) 500 mg DAILY ORAL 03/30/20 09:00 04/29/20 08:59 04/05/20 08:13 Dextrose (Dextrose 50%) 25 ml Q30M PRN IV Hypoglycemia 03/30/20 02:00 06/28/20 01:59 Dextrose (Dextrose 50%) 50 ml Q30M PRN IV Hypoglycemia 03/30/20 02:00 06/28/20 01:59 Dextrose/Sodium Chloride 1,000 ml @ 75 mls/hr [id number] IV 04/05/20 17:15 05/05/20 17:14 04/06/20 06:35 Enoxaparin Sodium (Lovenox) 80 mg Q12H SUBQ 03/30/20 09:00 06/28/20 08:59 04/05/20 20:50 Famotidine (Pepcid) 20 mg DAILY ORAL 03/30/20 09:00 06/28/20 08:59 04/05/20 08:13 Guaifenesin/ Dextromethorphan (Robitussin DM Syrup) 10 ml Q4H PRN ORAL For Cough 03/31/20 11:30 06/29/20 11:29 04/01/20 20:42 Insulin Aspart (NovoLOG) BEFORE MEALS AND HS SUBQ 03/30/20 06:30 06/28/20 06:29 04/06/20 06:37 Insulin Detemir (Levemir) 6 units ACBREAKFAST SUBQ 04/01/20 06:30 06/30/20 06:29 04/06/20 06:37 Insulin Detemir (Levemir) 12 units BEDTIME SUBQ 04/03/20 21:00 06/29/20 00:29 04/05/20 21:01 Methylprednisolone Sodium Succinate (Solu-MEDROL) 40 mg EVERY 12 HOURS IVP 04/01/20 11:30 06/30/20 11:29 04/05/20 20:49 Vitamin D (Vitamin D) 1,000 unit DAILY ORAL 03/30/20 09:00 04/29/20 08:59 04/05/20 08:13 Zinc Sulfate (Zinc Sulfate) 220 mg DAILY ORAL 03/30/20 09:00 06/28/20 08:59 04/05/20 08:13 Assessment/Plan Assessment/Plan 1. covid 19 pneumonia s/p remdesivir 2. diabetes mellitus 3 respiratory failure 4. Hypoxemic respiratory failure P 1. continue solumedrol 2. continue isolation 3. repeat ABG noted 4. Venous US ordered 5. at risk for intubation impression, plan, and exam edited and reviewed in detail care discussed with Mehul Dee MD Apr 06, 2020 10:20
--- NOTE | 2020-04-06 11:12 | Infectious Diseases Prog Note ---
Assessment/Plan Assessment/Plan antibiotics : remdesivir A 1. covid 19 pneumonia on 100 % Fi O2 with 86 % saturation s/p remdesivir 2. diabetes mellitus 3. respiratory failure P 1. continue solumedrol taper dose 2. continue isolation Subjective ROS Limited/Unobtainable: Yes Allergies: Coded Allergies: No Known Allergies (Unverified , 03/29/20) Objective Last 24 Hour Vital Signs Date Time Temp Pulse Resp B/P (MAP) Pulse Ox O2 Delivery O2 Flow Rate FiO2 04/06/20 08:00 100 04/06/20 08:00 Bi-pap Bi-pap 04/06/20 08:00 81 04/06/20 08:00 98.9 86 22 149/78 (101) 86 04/06/20 04:00 100 04/06/20 04:00 98.9 86 22 149/78 (101) 86 04/06/20 04:00 Bi-pap Bi-pap 04/06/20 04:00 81 04/06/20 03:35 68 28 87 100 04/06/20 00:00 100 04/06/20 00:00 98.4 24 134/58 (83) 88 04/06/20 00:00 100 04/06/20 00:00 Bi-pap Bi-pap 04/05/20 23:35 71 27 88 100 04/05/20 20:00 100 04/05/20 20:00 98.3 84 34 145/78 (100) 90 04/05/20 20:00 Bi-pap Bi-pap 04/05/20 19:43 76 04/05/20 19:13 78 23 92 100 04/05/20 17:00 93 28 92 100 04/05/20 16:00 100 04/05/20 16:00 98.6 78 35 124/77 (93) 94 04/05/20 16:00 Bi-pap Bi-pap 04/05/20 15:47 74 04/05/20 15:14 72 25 95 100 04/05/20 12:00 100 04/05/20 12:00 98.0 78 24 128/63 (84) 92 04/05/20 12:00 Bi-pap Bi-pap 04/05/20 11:46 71 Height (Feet): 5 Height (Inches): 7.00 Weight (Pounds): 195 HEENT: other - on bipap Laboratory Tests Test 04/05/20 11:35 04/05/20 11:50 04/05/20 17:27 04/05/20 20:43 POC Whole Blood Glucose 185 MG/DL (74-106) H Pending 209 MG/DL (74-106) H Arterial Blood pH 7.427 (7.350-7.450) Arterial Blood Partial Pressure CO2 42.6 mmHg (35.0-45.0) Arterial Blood Partial Pressure O2 53.1 mmHg (75.0-100.0) L Arterial Blood HCO3 27.5 mmol/L (22.0-26.0) H Arterial Blood Oxygen Saturation 87.5 % (95-100) *L Arterial Blood Base Excess 2.7 (-2-2) H Eliazar Test Positive Test 04/06/20 03:45 04/06/20 08:21 White Blood Count 17.6 K/UL (4.8-10.8) H Red Blood Count 4.41 M/UL (4.70-6.10) L Hemoglobin 13.6 G/DL (14.2-18.0) L Hematocrit 43.1 % (42.0-52.0) Mean Corpuscular Volume 98 FL (80-99) Mean Corpuscular Hemoglobin 30.8 PG (27.0-31.0) Mean Corpuscular Hemoglobin Concent 31.5 G/DL (32.0-36.0) L Red Cell Distribution Width 15.2 % (11.6-14.8) H Platelet Count 369 K/UL (150-450) Mean Platelet Volume 6.8 FL (6.5-10.1) Neutrophils (%) (Auto) % (45.0-75.0) Lymphocytes (%) (Auto) % (20.0-45.0) Monocytes (%) (Auto) % (1.0-10.0) Eosinophils (%) (Auto) % (0.0-3.0) Basophils (%) (Auto) % (0.0-2.0) Differential Total Cells Counted 100 Neutrophils % (Manual) 90 % (45-75) H Lymphocytes % (Manual) 5 % (20-45) L Monocytes % (Manual) 5 % (1-10) Eosinophils % (Manual) 0 % (0-3) Basophils % (Manual) 0 % (0-2) Band Neutrophils 0 % (0-8) Platelet Estimate Adequate Platelet Morphology Normal Hypochromasia 1+ Anisocytosis 1+ Macrocytosis 1+ Sodium Level 138 MMOL/L (136-145) Potassium Level 4.8 MMOL/L (3.5-5.1) Chloride Level 104 MMOL/L (98-107) Carbon Dioxide Level 28 MMOL/L (21-32) Anion Gap 6 mmol/L (5-15) Blood Urea Nitrogen 21 mg/dL (7-18) H Creatinine 0.7 MG/DL (0.55-1.30) Estimat Glomerular Filtration Rate > 60 mL/min (>60) Glucose Level 198 MG/DL (74-106) H Calcium Level 8.3 MG/DL (8.5-10.1) L Total Bilirubin 0.5 MG/DL (0.2-1.0) Aspartate Amino Transf (AST/SGOT) 23 U/L (15-37) Alanine Aminotransferase (ALT/SGPT) 29 U/L (12-78) Alkaline Phosphatase 68 U/L (46-116) Total Protein 7.2 G/DL (6.4-8.2) Albumin 1.7 G/DL (3.4-5.0) L Globulin 5.5 g/dL Albumin/Globulin Ratio 0.3 (1.0-2.7) L Arterial Blood pH 7.418 (7.350-7.450) Arterial Blood Partial Pressure CO2 44.0 mmHg (35.0-45.0) Arterial Blood Partial Pressure O2 52.7 mmHg (75.0-100.0) L Arterial Blood HCO3 27.8 mmol/L (22.0-26.0) H Arterial Blood Oxygen Saturation 86.9 % (95-100) *L Arterial Blood Base Excess 2.8 (-2-2) H Eliazar Test Positive Current Medications Medications (Trade) Dose Ordered Sig/Compa Route PRN Reason Start Time Stop Time Status Last Admin Dose Admin Acetaminophen (Tylenol) 650 mg Q4H PRN ORAL Mild Pain (Pain Scale 1-3) 03/29/20 22:45 04/28/20 22:44 04/01/20 08:27 Acetaminophen (Tylenol) 650 mg Q4H PRN ORAL Temp >100.5 03/29/20 22:45 04/28/20 22:44 Albuterol Sulfate (Proventil MDI) 2 puff Q4H PRN INH Shortness of Breath 03/31/20 07:00 06/29/20 06:59 04/02/20 23:55 Artificial Tears (Akwa-Tears) 2 drop Q2H PRN BOTH EYES Dry Eyes 03/31/20 07:00 04/30/20 06:59 03/31/20 16:00 Ascorbic Acid (Vitamin C) 500 mg DAILY ORAL 03/30/20 09:00 04/29/20 08:59 04/05/20 08:13 Dextrose (Dextrose 50%) 25 ml Q30M PRN IV Hypoglycemia 03/30/20 02:00 06/28/20 01:59 Dextrose (Dextrose 50%) 50 ml Q30M PRN IV Hypoglycemia 03/30/20 02:00 06/28/20 01:59 Dextrose/Sodium Chloride 1,000 ml @ 75 mls/hr [id number] IV 04/05/20 17:15 05/05/20 17:14 04/06/20 06:35 Enoxaparin Sodium (Lovenox) 80 mg Q12H SUBQ 03/30/20 09:00 06/28/20 08:59 04/05/20 20:50 Famotidine (Pepcid) 20 mg DAILY ORAL 03/30/20 09:00 06/28/20 08:59 04/05/20 08:13 Guaifenesin/ Dextromethorphan (Robitussin DM Syrup) 10 ml Q4H PRN ORAL For Cough 03/31/20 11:30 06/29/20 11:29 04/01/20 20:42 Insulin Aspart (NovoLOG) BEFORE MEALS AND HS SUBQ 03/30/20 06:30 06/28/20 06:29 04/06/20 06:37 Insulin Detemir (Levemir) 6 units ACBREAKFAST SUBQ 04/01/20 06:30 06/30/20 06:29 04/06/20 06:37 Insulin Detemir (Levemir) 12 units BEDTIME SUBQ 04/03/20 21:00 06/29/20 00:29 04/05/20 21:01 Methylprednisolone Sodium Succinate (Solu-MEDROL) 40 mg EVERY 12 HOURS IVP 04/01/20 11:30 06/30/20 11:29 04/05/20 20:49 Vitamin D (Vitamin D) 1,000 unit DAILY ORAL 03/30/20 09:00 04/29/20 08:59 04/05/20 08:13 Zinc Sulfate (Zinc Sulfate) 220 mg DAILY ORAL 03/30/20 09:00 06/28/20 08:59 04/05/20 08:13 Breezy Kowalski MD Apr 06, 2020 11:12
--- NOTE | 2020-04-06 11:21 | Diagnostic Imaging Report ---
Indication:Leg pain and swelling Technique: Grayscale and duplex Doppler imaging of the veins in both lower extremities performed in real time utilizing compression and augmentation. Comparison: None Findings: Duplex Doppler interrogation of the veins in both lower extremity is performed from the common femoral vein to the popliteal vein. Normal venous compressibility demonstrated throughout. No thrombus identified. Waveform analysis shows good respiratory phasicity and augmentation. IMPRESSION: No evidence of deep venous thrombosis involving the visualized veins of the bilateral lower extremities. This corresponds with the preliminary report by the scanning US technologist.
--- NOTE | 2020-04-06 14:00 | NUR ---
Notified RT Marivel pt's saturation is 60% off BiPap & 80% with Bipap on, settings changed to 15/10; MD Regalado notified and is aware. states he will contact the ER physician. Will continue to monitor patient, pt is in no respiratory distress, however is hypoxic.
--- NOTE | 2020-04-06 14:30 | NUR ---
NURSE NOTES: Pt transferred to ICU and intubated by , report given to ALLY Carter
--- NOTE | 2020-04-06 14:35 | NUR ---
NURSE NOTES: patient intubated by Dr. Hartman on first attempt with ET-tube 7.5, it is at 23cm at the lips, chest x-ray pending to be taken.
[2020-04-06] MEDS ORDERED: Midazolam 2mg/2ml Inj ONE (14:43)
[2020-04-06] MEDS ORDERED: Midazolam 2mg/2ml Inj IVP SCH (14:45)
[2020-04-06] MEDS ORDERED: Midazolam HCl 50mg/10ml vial 50 MG in NS 90 ML IV PRN (15:00)
--- NOTE | 2020-04-06 15:06 | Emergency Room Report ---
Physical Exam Last 24 Hour Vital Signs Date Time Temp Pulse Resp B/P (MAP) Pulse Ox O2 Delivery O2 Flow Rate FiO2 04/06/20 12:00 100 04/06/20 12:00 98.9 86 22 149/78 (101) 86 04/06/20 12:00 81 04/06/20 12:00 Bi-pap Bi-pap 04/06/20 08:00 100 04/06/20 08:00 Bi-pap Bi-pap 04/06/20 08:00 81 04/06/20 08:00 98.9 86 22 149/78 (101) 86 04/06/20 04:00 100 04/06/20 04:00 98.9 86 22 149/78 (101) 86 04/06/20 04:00 Bi-pap Bi-pap 04/06/20 04:00 81 04/06/20 03:35 68 28 87 100 04/06/20 00:00 100 04/06/20 00:00 98.4 24 134/58 (83) 88 04/06/20 00:00 100 04/06/20 00:00 Bi-pap Bi-pap 04/05/20 23:35 71 27 88 100 04/05/20 20:00 100 04/05/20 20:00 98.3 84 34 145/78 (100) 90 04/05/20 20:00 Bi-pap Bi-pap 04/05/20 19:43 76 04/05/20 19:13 78 23 92 100 04/05/20 17:00 93 28 92 100 04/05/20 16:00 100 04/05/20 16:00 98.6 78 35 124/77 (93) 94 04/05/20 16:00 Bi-pap Bi-pap 04/05/20 15:47 74 04/05/20 15:14 72 25 95 100 Sp02 EP Interpretation: reviewed, abnormal - Hypoxemic as reviewed by me General Appearance: GCS 15, mild distress, other - Diaphoretic Head: normocephalic, atraumatic Eyes: bilateral eye normal inspection, bilateral eye PERRL, bilateral eye EOMI ENT: moist mucus membranes Neck: full range of motion, supple Respiratory: no retraction, no accessory muscle use, respiratory distress - Minimal, crackles, rales Cardiovascular #1: regular rate, rhythm, no edema Gastrointestinal: normal inspection Musculoskeletal: normal inspection Neurologic: alert, oriented x3, grossly normal Psychiatric: mood/affect normal Skin: no rash, warm/dry Intubation Intubation : Consent: Verbal Intubation Method: orotracheal Tube Size (cm): 7.5 - 23 teeth Medications: Etomidate Breath Sounds after Intubation: equal Intubation Complications: no complications Post Intubation Xray: Yes Attempts: One Patient Tolerated: Well Complications: None Progress post intubation versed 2 mg Medical Decision Making Diagnostic Impression: Primary Impression: COVID-19 Additional Impression: Respiratory failure Qualified Codes: J96.01 - Acute respiratory failure with hypoxia ER Course Call to to intubate patient with Covid pneumonia. Initially patient refused intubation but then agreed. Please see procedure note. Patient tolerated procedure well. Patient's prognosis is guarded. Chest X-Ray Diagnostic Results Chest X-Ray Diagnostic Results : Chest X-Ray Ordered: Yes # of Views/Limited/Complete: 1 View Indication: Other EP Interpretation: Yes Interpretation: no effusion, no pneumothorax, other - Bilateral infiltrates and endotracheal tube with adequate placement which may be considered slightly low by some Impression: Other Electronically Signed by: Electronically signed by Raul Hartman MD Last Vital Signs Date Time Temp Pulse Resp B/P (MAP) Pulse Ox O2 Delivery O2 Flow Rate FiO2 04/06/20 12:00 100 04/06/20 12:00 98.9 86 22 149/78 (101) 86 04/06/20 12:00 Bi-pap Bi-pap 04/05/20 12:00 Status: improved Disposition: ADMITTED INPATIENT Condition: Critical Referrals: NOT CHOSEN IPA/,REFERRING (PCP) Raul Hartman MD Apr 06, 2020 15:06
--- NOTE | 2020-04-06 16:43 | NUR ---
NURSE NOTES: ABG results after intubation reported to Dr. Mclaughlin - also made aware of small subcutaneous emphysema @ right neck area
--- NOTE | 2020-04-06 17:10 | Diagnostic Imaging Report ---
Indication: Post intubation Technique: One view of the chest Comparison: 04/05/2020 Findings: Interim endotracheal intubation, endotracheal tube tip projecting approximately 2 cm above the nora. Interim orogastric intubation, tube tip projecting at the level gastric body. Extensive and severe bilateral infiltrates are present. The heart is borderline enlarged. Impression: Satisfactory endotracheal intubation Satisfactory orogastric intubation Unchanged bilateral infiltrates
--- NOTE | 2020-04-06 18:05 | NUR ---
NURSE NOTES: Mckenzie inserted on first attempt, straw colored urine noted.
--- NOTE | 2020-04-06 19:43 | NUR ---
NURSE HAND-OFF REPORT: Latest Vital Signs: Temperature 100.1 , Pulse 115 , B/P 128 /69 , Respiratory Rate 27 , O2 SAT 89 , Mechanical Ventilator, O2 Flow Rate . Vital Sign Comment: EKG Rhythm: Sinus Tachycardia Rhythm change?: N MD Notified?: - MD Response: Latest Park Fall Score: 20 Fall Risk: Low Risk Safety Measures: Call light Within Reach, Bed Alarm Zone 1, Side Rails Side Rails x3, Bed position Low and Locked. Fall Precautions: Yellow Socks Yellow Gown Door Sign Patient Fall Education Report given to ALLY Downing.
[2020-04-06] MEDS ORDERED: Dyna-Hex 2% Top Sol 2oz TOPIC SCH (20:00)
--- NOTE | 2020-04-06 20:00 | NUR ---
RN received report from [facility] nurse. Patient ST and restless. Patient on mechanical ventilator with setting of assist control 16 Tidal volume 500 FIO2 100% and PEEP 12. Patient saturations 83%. Rn assesed patient and repositioned patient for comfort. RN increased Versed to 8 from7 mg. Patient desats increased with continual fighting of the vent. Patient restrained. RN will increase Versed per protocol. RN will continue to monitor.
[2020-04-06] MEDS ORDERED: Midazolam HCl 50mg/10ml vial IV ONE (20:40)
--- NOTE | 2020-04-06 20:50 | NUR ---
NURSE NOTES: Patient becoming more hypoxic and confused on the vent moving around trying to get restraints off. Patient is st 130-140. Patient 02 82%. RN notified RT to obtain blood gas and also paged Dr. Mclaughlin for orders for more sedation to help the patient relax. RN also notified Dr. Mike for orders for a central line placement due to patients blood pressure decreasing and the possible need for pressors. RN awaiting callback.
[2020-04-06] MEDS ORDERED: Midazolam HCl 50mg/10ml vial 100 MG in NS 180 ML IV PRN (21:00)
--- NOTE | 2020-04-06 21:30 | NUR ---
NURSE NOTES: Rn recieved orders for more sedation, central line placement and pressors. Rn notified family with an update on patient current status and the need for consent for central line placement. RN awaiting ED physician for central line placement.
--- NOTE | 2020-04-06 22:13 | Cardiology Progress Note ---
Subjective DATE OF SERVICE: Apr 06, 2020 Increasingly hypoxic despite bipap; now intubated and mechanically ventilated. I spoke with his son and on the phone again today. I also spoke with patient's nephew, who is an MD. They were updated on status, and made aware of further deterioration in oxygenation and need for ventilator support. They were also made aware of up to 50% mortality in such a circumstance. They were reassured that maximum available therapies have been, and will continue to be given. I have also initiated an ECMO consult with [facility], and am awaiting for call back from director, Dr Suarez. CXR (04/05) No change in bilateral infiltrates. Objective Last 24 Hour Vital Signs Date Time Temp Pulse Resp B/P (MAP) Pulse Ox O2 Delivery O2 Flow Rate FiO2 04/06/20 20:30 30 100 04/06/20 20:15 32 Mechanical Ventilator 100 04/06/20 20:00 100 04/06/20 20:00 100 04/06/20 20:00 35 Mechanical Ventilator 100 04/06/20 20:00 126 27 116/66 (83) 89 04/06/20 19:45 128 31 117/67 (84) 87 04/06/20 19:45 40 Mechanical Ventilator 100 04/06/20 19:30 36 Mechanical Ventilator 100 04/06/20 19:30 126 32 117/71 (86) 88 04/06/20 19:15 126 32 119/67 (84) 88 04/06/20 19:15 36 Mechanical Ventilator 100 04/06/20 19:00 27 Mechanical Ventilator 100 04/06/20 19:00 115 32 118/64 (82) 89 04/06/20 18:58 115 34 100 04/06/20 18:00 26 Mechanical Ventilator 100 04/06/20 17:00 27 Mechanical Ventilator 100 04/06/20 17:00 108 28 128/69 (88) 89 04/06/20 16:30 27 Mechanical Ventilator 100 04/06/20 16:15 26 Mechanical Ventilator 100 04/06/20 16:00 Mechanical Ventilator 04/06/20 16:00 27 Mechanical Ventilator 100 04/06/20 16:00 100 04/06/20 16:00 100.1 113 27 138/86 (103) 87 04/06/20 16:00 111 04/06/20 15:45 30 Mechanical Ventilator 100 04/06/20 15:30 31 Mechanical Ventilator 100 04/06/20 15:00 97 20 135/85 (102) 87 04/06/20 14:50 110 26 100 04/06/20 12:00 100 04/06/20 12:00 98.9 86 22 149/78 (101) 86 04/06/20 12:00 81 04/06/20 12:00 Bi-pap Bi-pap 04/06/20 11:12 72 28 86 100 04/06/20 08:00 100 04/06/20 08:00 Bi-pap Bi-pap 04/06/20 08:00 81 04/06/20 08:00 98.9 86 22 149/78 (101) 86 04/06/20 07:24 79 30 91 100 04/06/20 04:00 100 04/06/20 04:00 98.9 86 22 149/78 (101) 86 04/06/20 04:00 Bi-pap Bi-pap 04/06/20 04:00 81 04/06/20 03:35 68 28 87 100 04/06/20 00:00 100 04/06/20 00:00 98.4 24 134/58 (83) 88 04/06/20 00:00 100 04/06/20 00:00 Bi-pap Bi-pap 04/05/20 23:35 71 27 88 100 HEENT: Orally intubated, Mechanically Ventilated, Thin secretions ET Tube RHYTHM: NSR LUNGS: bilateral rhonchi CARDIAC: regular rhythm, normal S1 and S2 ABDOMEN: normal bowel sounds, non tender, other - obese EXTREMITIES: normal range of motion, non-tender, trace edema Laboratory Tests Test 04/06/20 03:45 04/06/20 08:21 04/06/20 13:34 04/06/20 16:06 White Blood Count 17.6 K/UL (4.8-10.8) H Red Blood Count 4.41 M/UL (4.70-6.10) L Hemoglobin 13.6 G/DL (14.2-18.0) L Hematocrit 43.1 % (42.0-52.0) Mean Corpuscular Volume 98 FL (80-99) Mean Corpuscular Hemoglobin 30.8 PG (27.0-31.0) Mean Corpuscular Hemoglobin Concent 31.5 G/DL (32.0-36.0) L Red Cell Distribution Width 15.2 % (11.6-14.8) H Platelet Count 369 K/UL (150-450) Mean Platelet Volume 6.8 FL (6.5-10.1) Neutrophils (%) (Auto) % (45.0-75.0) Lymphocytes (%) (Auto) % (20.0-45.0) Monocytes (%) (Auto) % (1.0-10.0) Eosinophils (%) (Auto) % (0.0-3.0) Basophils (%) (Auto) % (0.0-2.0) Differential Total Cells Counted 100 Neutrophils % (Manual) 90 % (45-75) H Lymphocytes % (Manual) 5 % (20-45) L Monocytes % (Manual) 5 % (1-10) Eosinophils % (Manual) 0 % (0-3) Basophils % (Manual) 0 % (0-2) Band Neutrophils 0 % (0-8) Platelet Estimate Adequate Platelet Morphology Normal Hypochromasia 1+ Anisocytosis 1+ Macrocytosis 1+ Sodium Level 138 MMOL/L (136-145) Potassium Level 4.8 MMOL/L (3.5-5.1) Chloride Level 104 MMOL/L (98-107) Carbon Dioxide Level 28 MMOL/L (21-32) Anion Gap 6 mmol/L (5-15) Blood Urea Nitrogen 21 mg/dL (7-18) H Creatinine 0.7 MG/DL (0.55-1.30) Estimat Glomerular Filtration Rate > 60 mL/min (>60) Glucose Level 198 MG/DL (74-106) H Calcium Level 8.3 MG/DL (8.5-10.1) L Total Bilirubin 0.5 MG/DL (0.2-1.0) Aspartate Amino Transf (AST/SGOT) 23 U/L (15-37) Alanine Aminotransferase (ALT/SGPT) 29 U/L (12-78) Alkaline Phosphatase 68 U/L (46-116) Total Protein 7.2 G/DL (6.4-8.2) Albumin 1.7 G/DL (3.4-5.0) L Globulin 5.5 g/dL Albumin/Globulin Ratio 0.3 (1.0-2.7) L Triglycerides Level Pending Arterial Blood pH 7.418 (7.350-7.450) 7.387 (7.350-7.450) Arterial Blood Partial Pressure CO2 44.0 mmHg (35.0-45.0) 47.7 mmHg (35.0-45.0) H Arterial Blood Partial Pressure O2 52.7 mmHg (75.0-100.0) L 44.6 mmHg (75.0-100.0) Arterial Blood HCO3 27.8 mmol/L (22.0-26.0) H 28.0 mmol/L (22.0-26.0) H Arterial Blood Oxygen Saturation 86.9 % (95-100) *L 79.6 % (95-100) *L Arterial Blood Base Excess 2.8 (-2-2) H 2.3 (-2-2) H Eliazar Test Positive Positive POC Whole Blood Glucose 156 MG/DL (74-106) H Test 04/06/20 20:25 Arterial Blood pH 7.342 (7.350-7.450) Arterial Blood Partial Pressure CO2 58.3 mmHg (35.0-45.0) *H Arterial Blood Partial Pressure O2 49.0 mmHg (75.0-100.0) Arterial Blood HCO3 30.9 mmol/L (22.0-26.0) H Arterial Blood Oxygen Saturation 82.6 % (95-100) *L Arterial Blood Base Excess 3.5 (-2-2) H Eliazar Test Positive Assessment/Plan Assessment/Plan Covid 19 PNA Hypoxia Diabetes mellitus exacerbated by steroids No clinical signs of CHF; BNP normal range. Orders and POC updated. Continuing efforts to maximize oxygenation. Central access TBA Await ECMO consult from [facility] Family permitted to visit due to severity of condition. Raul Mike MD Apr 06, 2020 22:13
[2020-04-06] MEDS: Norepinephrine 4mg/NS Premix 250 ML IV SCH (22:22)
--- NOTE | 2020-04-06 22:44 | Emergency Room Report ---
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 COVID-19 Screening: Positive COVID-19 COVID-19 Testing Source: NASAL Nursing Documentation-PMH Hx Cardiac Problems: No Hx Diabetes: Yes Hx Cancer: No Hx Gastrointestinal Problems: No Hx Neurological Problems: No Physical Exam Vital Signs Date Time Temp Pulse Resp B/P (MAP) Pulse Ox O2 Delivery O2 Flow Rate FiO2 04/02/20 08:00 97.5 67 16 134/71 (92) 91 04/02/20 09:00 Non-Rebreather 15.0 Non-Rebreather 15.0 04/04/20 10:30 100 Procedures Central Line Central Line : Consent: Emergent Central Line Lumen: triple Maximal Sterile Barrier Tech: yes cap, yes mask, yes sterile gown, yes sterile gloves, yes large sterile sheet, yes hand hygiene, yes chlorhexidine prep No Max Barrier Tech Because: emergency insertion Central Line Postion: femoral (R) Anesthesia: Lidocaine US Guided Line?: Yes Vessel visualized with U/S: Right Femoral Vein Ultrasound Findings: Collapsible Vessel, Vessel Patent, Visualize vessel puncture Complications: none Central Line Post Position: sutured, good blood return Attempts: One Patient Tolerated: Well Complications: None Medical Decision Making Diagnostic Impression: Primary Impression: COVID-19 Additional Impression: Respiratory failure Qualified Codes: J96.01 - Acute respiratory failure with hypoxia ER Course I was called to the ICU for emergent central line placement. When I arrived patient was hypotensive requiring Levophed. Central line was inserted as described above. No complications. Last Vital Signs Date Time Temp Pulse Resp B/P (MAP) Pulse Ox O2 Delivery O2 Flow Rate FiO2 04/06/20 22:22 65/42 04/06/20 20:30 30 100 04/06/20 20:15 Mechanical Ventilator 04/06/20 20:00 126 89 04/06/20 16:00 100.1 04/05/20 12:00 Disposition: ADMITTED INPATIENT Condition: Critical Referrals: NOT CHOSEN IPA/,REFERRING (PCP) Herbie Brooks M.D. Apr 06, 2020 22:44
--- NOTE | 2020-04-06 22:50 | NUR ---
NURSE NOTES: Patient beginning to settle down with sedation and pressors. Patient repositioned. Meds titrated to maintain bp and sedation. Dr. Mike spoke to the family and wants family to come and see patient. Rn will continue to monitor.
[2020-04-07] VITALS (9 sets, daily range): BP systolic 86–159; BP diastolic 45–90
--- NOTE | 2020-04-07 | NUR ---
NURSE NOTES: Patient vitals stable. Patient is resting. Patient repositioned. RN will control to monitor.
[2020-04-07] MEDS: propofoL 1,000mg/100ml 100 ML IV PRN ×3 (01:59→19:02)
--- NOTE | 2020-04-07 02:00 | NUR ---
NURSE NOTES: Patient vitals stable at this time. Patient restrained. Patient resting. RN will continue to monitor.
--- NOTE | 2020-04-07 04:00 | NUR ---
NURSE NOTES: Patient vitals stable. Patient sleeping. patient restrained. Iv infusing. Patient repositioned. RN will continue to monitor.
--- NOTE | 2020-04-07 06:00 | NUR ---
NURSE NOTES: Patient resting. Patient vitals stable stable. Rn will continue to monitor.
[2020-04-07] MEDS: NovoLOG Insulin Flexpen SUBQ SCH ×3 (06:32→16:42)
--- NOTE | 2020-04-07 07:20 | NUR ---
NURSE HAND-OFF REPORT: Latest Vital Signs: Temperature 100.1 , Pulse 76 , B/P 145 /80 , Respiratory Rate 21 , O2 SAT 94 , Mechanical Ventilator, O2 Flow Rate . Vital Sign Comment: EKG Rhythm: Sinus Tachycardia Rhythm change?: N MD Notified?: - MD Response: Latest Park Fall Score: 20 Fall Risk: Low Risk Safety Measures: Call light Within Reach, Bed Alarm Zone 1, Side Rails Side Rails x3, Bed position Low and Locked. Fall Precautions: Yellow Socks Yellow Gown Door Sign Patient Fall Education Report given to Raul CANALES.
[2020-04-07] MEDS: Vitamin D 1000 units Tab ORAL SCH (08:03)
[2020-04-07] MEDS: Zinc Sulfate 220mg ORAL SCH (08:03)
[2020-04-07] MEDS: Ascorbic Acid 500mg tab ORAL SCH (08:03)
[2020-04-07] MEDS: Enoxaparin 80mg Inj SUBQ SCH (08:05)
[2020-04-07] MEDS: D5NS 1,000 ML IV SCH (08:05)
--- NOTE | 2020-04-07 08:30 | NUR ---
NURSE NOTES: Dr. Mclaughlin updated at the bedside of the patient respiratory status, ordered to have an ABG, CBC, BMp, and chest x-ray to be complete.
[2020-04-07] MEDS ORDERED: Solu-MEDROL 40mg Inj IVP SCH (09:00)
--- NOTE | 2020-04-07 09:10 | Pulmonology Progress Note ---
Subjective ROS Limited/Unobtainable: Yes Constitutional: Reports: other - transferred from telemetry to [facility]; Denies: fever Gastrointestinal/Abdominal: Denies: nausea, vomiting, diarrhea Allergies: Coded Allergies: No Known Allergies (Unverified , 03/29/20) Subjective doing poorly diffuse infiltrates on solumedrol Objective Last 24 Hour Vital Signs Date Time Temp Pulse Resp B/P (MAP) Pulse Ox O2 Delivery O2 Flow Rate FiO2 04/07/20 08:00 100 04/07/20 08:00 81 04/07/20 06:14 22 136/76 Mechanical Ventilator 100 04/07/20 05:14 21 145/80 Mechanical Ventilator 100 04/07/20 04:14 22 140/82 Mechanical Ventilator 100 04/07/20 04:00 75 04/07/20 04:00 100 04/07/20 04:00 Mechanical Ventilator 04/07/20 03:30 159/90 (113) 04/07/20 03:14 23 154/91 Mechanical Ventilator 100 04/07/20 03:10 76 25 100 04/07/20 03:00 114/74 (87) 04/07/20 02:30 86/45 (59) 04/07/20 02:14 23 75/40 Mechanical Ventilator 100 04/07/20 02:00 113/62 (79) 04/07/20 01:59 32 131/65 Mechanical Ventilator 100 04/07/20 01:30 100.1 136/79 (98) 04/07/20 01:25 88 22 100 04/07/20 01:00 132/75 (94) 04/07/20 00:30 134/81 (98) 04/07/20 00:00 136/81 (99) 04/07/20 00:00 89 04/06/20 23:45 151/89 (109) 04/06/20 23:30 101.2 76/44 (55) 04/06/20 23:15 99/58 (72) 04/06/20 23:00 65/38 (47) 04/06/20 22:30 68/47 (54) 04/06/20 22:30 26 Mechanical Ventilator 100 04/06/20 22:22 65/42 04/06/20 22:15 68/45 (53) 04/06/20 22:00 80/48 (59) 04/06/20 21:45 30 99/56 (70) 94 04/06/20 21:30 26 Mechanical Ventilator 100 04/06/20 21:15 28 Mechanical Ventilator 100 04/06/20 21:00 32 Mechanical Ventilator 100 04/06/20 20:45 32 Mechanical Ventilator 100 04/06/20 20:30 30 100 04/06/20 20:15 32 Mechanical Ventilator 100 04/06/20 20:00 Mechanical Ventilator 04/06/20 20:00 100 04/06/20 20:00 100 04/06/20 20:00 114 04/06/20 20:00 35 Mechanical Ventilator 100 04/06/20 20:00 126 27 116/66 (83) 89 04/06/20 19:45 128 31 117/67 (84) 87 04/06/20 19:45 40 Mechanical Ventilator 100 04/06/20 19:30 36 Mechanical Ventilator 100 04/06/20 19:30 126 32 117/71 (86) 88 04/06/20 19:15 126 32 119/67 (84) 88 04/06/20 19:15 36 Mechanical Ventilator 100 04/06/20 19:00 27 Mechanical Ventilator 100 04/06/20 19:00 115 32 118/64 (82) 89 04/06/20 18:58 115 34 100 04/06/20 18:00 26 Mechanical Ventilator 100 04/06/20 17:00 27 Mechanical Ventilator 100 04/06/20 17:00 108 28 128/69 (88) 89 04/06/20 16:30 27 Mechanical Ventilator 100 04/06/20 16:15 26 Mechanical Ventilator 100 04/06/20 16:00 Mechanical Ventilator 04/06/20 16:00 27 Mechanical Ventilator 100 04/06/20 16:00 100 04/06/20 16:00 100.1 113 27 138/86 (103) 87 04/06/20 16:00 111 04/06/20 15:45 30 Mechanical Ventilator 100 04/06/20 15:30 31 Mechanical Ventilator 100 04/06/20 15:00 97 20 135/85 (102) 87 04/06/20 14:50 110 26 100 04/06/20 12:00 100 04/06/20 12:00 98.9 86 22 149/78 (101) 86 04/06/20 12:00 81 04/06/20 12:00 Bi-pap Bi-pap 04/06/20 11:12 72 28 86 100 Intake and Output 04/06/20 04/07/20 19:00 07:00 Intake Total 337.0 ml 853.3 ml Output Total 700 ml Balance 337.0 ml 153.3 ml IV Total 337.0 ml 853.3 ml Output Urine Total 700 ml # Voids 2 Objective deferred due to COVID Laboratory Tests 04/06/20 13:34: POC Whole Blood Glucose 156H 04/06/20 16:06: Arterial Blood pH 7.387, Arterial Blood Partial Pressure CO2 47.7H, Arterial Bl ood Partial Pressure O2 44.6*L, Arterial Blood HCO3 28.0H, Arterial Blood Oxygen Saturation 79.6*L, Arterial Blood Base Excess 2.3H, Eliazar Test Positive 04/06/20 20:25: Arterial Blood pH 7.342L, Arterial Blood Partial Pressure CO2 58.3*H, Arterial Blood Partial Pressure O2 49.0*L, Arterial Blood HCO3 30.9H, Arterial Blood Oxygen Saturation 82.6*L, Arterial Blood Base Excess 3.5H, Eliazar Test Positive 04/06/20 22:20: Triglycerides Level 142 04/07/20 08:40: Arterial Blood pH 7.380, Arterial Blood Partial Pressure CO2 46.5H, Arterial Blood Partial Pressure O2 63.9L, Arterial Blood HCO3 26.9H, Arterial Blood Oxygen Saturation 91.1L, Arterial Blood Base Excess 1.2, Eliazar Test Positive Current Medications Medications (Trade) Dose Ordered Sig/Compa Route PRN Reason Start Time Stop Time Status Last Admin Dose Admin Acetaminophen (Tylenol) 650 mg Q4H PRN ORAL Mild Pain (Pain Scale 1-3) 03/29/20 22:45 04/28/20 22:44 04/01/20 08:27 Acetaminophen (Tylenol) 650 mg Q4H PRN ORAL Temp >100.5 03/29/20 22:45 04/28/20 22:44 Albuterol Sulfate (Proventil MDI) 2 puff Q4H PRN INH Shortness of Breath 03/31/20 07:00 06/29/20 06:59 04/02/20 23:55 Artificial Tears (Akwa-Tears) 2 drop Q2H PRN BOTH EYES Dry Eyes 03/31/20 07:00 04/30/20 06:59 03/31/20 16:00 Ascorbic Acid (Vitamin C) 500 mg DAILY ORAL 03/30/20 09:00 04/29/20 08:59 04/07/20 08:03 Chlorhexidine Gluconate (Chrissie-Hex 2%) 1 applic DAILY@2000 TOPIC 04/06/20 20:00 07/05/20 19:59 04/06/20 20:18 Dextrose (Dextrose 50%) 25 ml Q30M PRN IV Hypoglycemia 03/30/20 02:00 06/28/20 01:59 Dextrose (Dextrose 50%) 50 ml Q30M PRN IV Hypoglycemia 03/30/20 02:00 06/28/20 01:59 Dextrose/Sodium Chloride 1,000 ml @ 75 mls/hr [id number] IV 04/05/20 17:15 05/05/20 17:14 04/07/20 08:05 Enoxaparin Sodium (Lovenox) 80 mg Q12H SUBQ 03/30/20 09:00 06/28/20 08:59 04/07/20 08:05 Famotidine (Pepcid) 20 mg DAILY ORAL 03/30/20 09:00 06/28/20 08:59 04/07/20 08:04 Guaifenesin/ Dextromethorphan (Robitussin DM Syrup) 10 ml Q4H PRN ORAL For Cough 03/31/20 11:30 06/29/20 11:29 04/01/20 20:42 Insulin Aspart (NovoLOG) BEFORE MEALS AND HS SUBQ 03/30/20 06:30 06/28/20 06:29 04/07/20 06:32 Insulin Detemir (Levemir) 12 units BEDTIME SUBQ 04/03/20 21:00 06/29/20 00:29 04/05/20 21:01 Methylprednisolone Sodium Succinate (Solu-MEDROL) 40 mg DAILY IVP 04/07/20 09:00 07/06/20 08:59 04/07/20 08:04 Midazolam HCl 100 mg/Sodium Chloride 200 ml @ 0 mls/hr Q24H PRN IV SEDATION 04/06/20 21:00 04/08/20 20:59 Norepinephrine Bitartrate 250 ml @ 0 mls/hr Q24H IV 04/06/20 22:15 04/09/20 22:10 04/06/20 22:22 Propofol 100 ml @ 0 mls/hr Q12H PRN IV DIRECTED 04/06/20 21:32 04/08/20 21:31 04/07/20 01:59 Vitamin D (Vitamin D) 1,000 unit DAILY ORAL 03/30/20 09:00 04/29/20 08:59 04/07/20 08:03 Zinc Sulfate (Zinc Sulfate) 220 mg DAILY ORAL 03/30/20 09:00 06/28/20 08:59 04/07/20 08:03 Assessment/Plan Assessment/Plan 1. covid 19 pneumonia s/p remdesivir 2. diabetes mellitus 3 respiratory failure 4. Hypoxemic respiratory failure P 1. continue solumedrol 2. continue isolation 3. repeat ABG noted 4. Venous US ordered 5. vent support and monitor impression, plan, and exam edited and reviewed in detail care discussed with Mehul Dee MD Apr 07, 2020 09:10
--- NOTE | 2020-04-07 09:15 | NUR ---
NURSE NOTES: Dr. gibson notified regarding ABG results, patient remains with setting of AC 16, TV: 550, Fio2 100% and peep of 12. saturating at 94% and respirations at 16. remains sedated on Propofol at 10mcg/kg/min. no additional orders given at this time.
--- NOTE | 2020-04-07 09:34 | Infectious Diseases Prog Note ---
Assessment/Plan Assessment/Plan A; Severe COVID19 pneumonia Hypoxic respiratory failure DM Lymphocytopenia Leukocytosis P: Finished Remdesivir course Continue Solumedrol Start on Rocephin Sputum culture Subjective ROS Limited/Unobtainable: Yes Constitutional: Reports: fever, other - Ol=050.2 Respiratory: Reports: other - intubated, transferred to ICU Neurologic: Reports: other - sedated on restraint Allergies: Coded Allergies: No Known Allergies (Unverified , 03/29/20) Objective Last 24 Hour Vital Signs Date Time Temp Pulse Resp B/P (MAP) Pulse Ox O2 Delivery O2 Flow Rate FiO2 04/07/20 08:00 100 04/07/20 08:00 81 04/07/20 06:14 22 136/76 Mechanical Ventilator 100 04/07/20 05:14 21 145/80 Mechanical Ventilator 100 04/07/20 04:14 22 140/82 Mechanical Ventilator 100 04/07/20 04:00 75 04/07/20 04:00 100 04/07/20 04:00 Mechanical Ventilator 04/07/20 03:30 159/90 (113) 04/07/20 03:14 23 154/91 Mechanical Ventilator 100 04/07/20 03:10 76 25 100 04/07/20 03:00 114/74 (87) 04/07/20 02:30 86/45 (59) 04/07/20 02:14 23 75/40 Mechanical Ventilator 100 04/07/20 02:00 113/62 (79) 04/07/20 01:59 32 131/65 Mechanical Ventilator 100 04/07/20 01:30 100.1 136/79 (98) 04/07/20 01:25 88 22 100 04/07/20 01:00 132/75 (94) 04/07/20 00:30 134/81 (98) 04/07/20 00:00 136/81 (99) 04/07/20 00:00 89 04/06/20 23:45 151/89 (109) 04/06/20 23:30 101.2 76/44 (55) 04/06/20 23:15 99/58 (72) 04/06/20 23:00 65/38 (47) 04/06/20 22:30 68/47 (54) 04/06/20 22:30 26 Mechanical Ventilator 100 04/06/20 22:22 65/42 2 22:15 68/45 (53) 04/06/20 22:00 80/48 (59) 04/06/20 21:45 30 99/56 (70) 94 04/06/20 21:30 26 Mechanical Ventilator 100 04/06/20 21:15 28 Mechanical Ventilator 100 04/06/20 21:00 32 Mechanical Ventilator 100 04/06/20 20:45 32 Mechanical Ventilator 100 04/06/20 20:30 30 100 04/06/20 20:15 32 Mechanical Ventilator 100 04/06/20 20:00 Mechanical Ventilator 04/06/20 20:00 100 04/06/20 20:00 100 04/06/20 20:00 114 04/06/20 20:00 35 Mechanical Ventilator 100 04/06/20 20:00 126 27 116/66 (83) 89 04/06/20 19:45 128 31 117/67 (84) 87 04/06/20 19:45 40 Mechanical Ventilator 100 04/06/20 19:30 36 Mechanical Ventilator 100 04/06/20 19:30 126 32 117/71 (86) 88 04/06/20 19:15 126 32 119/67 (84) 88 04/06/20 19:15 36 Mechanical Ventilator 100 04/06/20 19:00 27 Mechanical Ventilator 100 04/06/20 19:00 115 32 118/64 (82) 89 04/06/20 18:58 115 34 100 04/06/20 18:00 26 Mechanical Ventilator 100 04/06/20 17:00 27 Mechanical Ventilator 100 04/06/20 17:00 108 28 128/69 (88) 89 04/06/20 16:30 27 Mechanical Ventilator 100 04/06/20 16:15 26 Mechanical Ventilator 100 04/06/20 16:00 Mechanical Ventilator 04/06/20 16:00 27 Mechanical Ventilator 100 04/06/20 16:00 100 04/06/20 16:00 100.1 113 27 138/86 (103) 87 04/06/20 16:00 111 04/06/20 15:45 30 Mechanical Ventilator 100 04/06/20 15:30 31 Mechanical Ventilator 100 04/06/20 15:00 97 20 135/85 (102) 87 04/06/20 14:50 110 26 100 04/06/20 12:00 100 04/06/20 12:00 98.9 86 22 149/78 (101) 86 04/06/20 12:00 81 04/06/20 12:00 Bi-pap Bi-pap 04/06/20 11:12 72 28 86 100 Height (Feet): 5 Height (Inches): 7.00 Weight (Pounds): 195 HEENT: other Respiratory/Chest: other - on ventilator, KNK8=325% Cardiovascular: normal rate Abdomen: soft, non tender Neurologic/Psychiatric: other - sedated Laboratory Tests Test 04/06/20 13:34 04/06/20 16:06 04/06/20 20:25 04/06/20 22:20 POC Whole Blood Glucose 156 MG/DL (74-106) H Arterial Blood pH 7.387 (7.350-7.450) 7.342 (7.350-7.450) Arterial Blood Partial Pressure CO2 47.7 mmHg (35.0-45.0) H 58.3 mmHg (35.0-45.0) *H Arterial Blood Partial Pressure O2 44.6 mmHg (75.0-100.0) 49.0 mmHg (75.0-100.0) Arterial Blood HCO3 28.0 mmol/L (22.0-26.0) H 30.9 mmol/L (22.0-26.0) H Arterial Blood Oxygen Saturation 79.6 % (95-100) *L 82.6 % (95-100) *L Arterial Blood Base Excess 2.3 (-2-2) H 3.5 (-2-2) H Eliazar Test Positive Positive Triglycerides Level 142 MG/DL (30-150) Test 04/07/20 08:40 Arterial Blood pH 7.380 (7.350-7.450) Arterial Blood Partial Pressure CO2 46.5 mmHg (35.0-45.0) H Arterial Blood Partial Pressure O2 63.9 mmHg (75.0-100.0) L Arterial Blood HCO3 26.9 mmol/L (22.0-26.0) H Arterial Blood Oxygen Saturation 91.1 % (95-100) L Arterial Blood Base Excess 1.2 (-2-2) Eliazar Test Positive Current Medications Medications (Trade) Dose Ordered Sig/Compa Route PRN Reason Start Time Stop Time Status Last Admin Dose Admin Acetaminophen (Tylenol) 650 mg Q4H PRN ORAL Mild Pain (Pain Scale 1-3) 03/29/20 22:45 04/28/20 22:44 04/01/20 08:27 Acetaminophen (Tylenol) 650 mg Q4H PRN ORAL Temp >100.5 03/29/20 22:45 04/28/20 22:44 Albuterol Sulfate (Proventil MDI) 2 puff Q4H PRN INH Shortness of Breath 03/31/20 07:00 06/29/20 06:59 04/02/20 23:55 Artificial Tears (Akwa-Tears) 2 drop Q2H PRN BOTH EYES Dry Eyes 03/31/20 07:00 04/30/20 06:59 03/31/20 16:00 Ascorbic Acid (Vitamin C) 500 mg DAILY ORAL 03/30/20 09:00 04/29/20 08:59 04/07/20 08:03 Chlorhexidine Gluconate (Chrissie-Hex 2%) 1 applic DAILY@2000 TOPIC 04/06/20 20:00 07/05/20 19:59 04/06/20 20:18 Dextrose (Dextrose 50%) 25 ml Q30M PRN IV Hypoglycemia 03/30/20 02:00 06/28/20 01:59 Dextrose (Dextrose 50%) 50 ml Q30M PRN IV Hypoglycemia 03/30/20 02:00 06/28/20 01:59 Dextrose/Sodium Chloride 1,000 ml @ 75 mls/hr [id number] IV 04/05/20 17:15 05/05/20 17:14 04/07/20 08:05 Enoxaparin Sodium (Lovenox) 80 mg Q12H SUBQ 03/30/20 09:00 06/28/20 08:59 04/07/20 08:05 Famotidine (Pepcid) 20 mg DAILY ORAL 03/30/20 09:00 06/28/20 08:59 04/07/20 08:04 Guaifenesin/ Dextromethorphan (Robitussin DM Syrup) 10 ml Q4H PRN ORAL For Cough 03/31/20 11:30 06/29/20 11:29 04/01/20 20:42 Insulin Aspart (NovoLOG) BEFORE MEALS AND HS SUBQ 03/30/20 06:30 06/28/20 06:29 04/07/20 06:32 Insulin Detemir (Levemir) 12 units BEDTIME SUBQ 04/03/20 21:00 06/29/20 00:29 04/05/20 21:01 Methylprednisolone Sodium Succinate (Solu-MEDROL) 40 mg DAILY IVP 04/07/20 09:00 07/06/20 08:59 04/07/20 08:04 Midazolam HCl 100 mg/Sodium Chloride 200 ml @ 0 mls/hr Q24H PRN IV SEDATION 04/06/20 21:00 04/08/20 20:59 Norepinephrine Bitartrate 250 ml @ 0 mls/hr Q24H IV 04/06/20 22:15 04/09/20 22:10 04/06/20 22:22 Propofol 100 ml @ 0 mls/hr Q12H PRN IV DIRECTED 04/06/20 21:32 04/08/20 21:31 04/07/20 01:59 Vitamin D (Vitamin D) 1,000 unit DAILY ORAL 03/30/20 09:00 04/29/20 08:59 04/07/20 08:03 Zinc Sulfate (Zinc Sulfate) 220 mg DAILY ORAL 03/30/20 09:00 06/28/20 08:59 04/07/20 08:03 Jose Washington MD Apr 07, 2020 09:34
[2020-04-07 09:35] LABS: HEMATOCRIT 41.8 % (42.0-52.0); HEMOGLOBIN 13.1 G/DL (14.2-18.0); MEAN CORPUSCULAR VOLUME 98 FL (80-99); PLATELET COUNT 332 K/UL (150-450); RED BLOOD COUNT 4.25 M/UL (4.70-6.10); RED CELL DISTRIBUTION WIDTH 15.7 % (11.6-14.8)
[2020-04-07 09:37] LABS: BASOPHILS % (AUTO) 0.6 % (0.0-2.0); EOSINOPHILS % (AUTO) 0.1 % (0.0-3.0); LYMPHOCYTES % (AUTO) 7.9 % (20.0-45.0); MONOCYTES % (AUTO) 4.2 % (1.0-10.0); NEUTROPHILS % (AUTO) 87.2 % (45.0-75.0)
--- NOTE | 2020-04-07 09:45 | NUR ---
NURSE NOTES: Dr. Washington placed an order for sputum culture, informed the cbc and bmp have been sent to laboratory for analysis. no orders given at this time.
[2020-04-07 09:59] LABS: ALANINE AMINOTRANSFERASE 30 U/L (12-78); ALBUMIN 1.4 G/DL (3.4-5.0); ALBUMIN/GLOBULIN RATIO 0.3 (1.0-2.7); ALKALINE PHOSPHATASE 66 U/L (46-116); ANION GAP 4 mmol/L (5-15); ASPARTATE AMINO TRANSFERASE 27 U/L (15-37); BILIRUBIN,TOTAL 0.7 MG/DL (0.2-1.0); BLOOD UREA NITROGEN 22 mg/dL (7-18); CALCIUM 7.5 MG/DL (8.5-10.1); CARBON DIOXIDE 29 MMOL/L (21-32); CHLORIDE 109 MMOL/L (98-107); POTASSIUM 4.2 MMOL/L (3.5-5.1); SODIUM 142 MMOL/L (136-145)
[2020-04-07] MEDS ORDERED: cefTRIAXone 1 GM in D5W 55 ML IVPB SCH (10:00)
--- NOTE | 2020-04-07 11:01 | NUR ---
NURSE NOTES: patient remains on propofol Drip at 10mcg/kg/min at rate of 5.307ml/hr. patient is at -2 rass scale. currently saturating at 92-93%.
[2020-04-07] MEDS: Norepinephrine 4mg/NS Premix 250 ML IV SCH (11:24)
--- NOTE | 2020-04-07 12:45 | NUR ---
NURSE NOTES: Dr. Corral at the bedside and informed of the patient BP, placed order to D/C levophed.
--- NOTE | 2020-04-07 13:09 | Diagnostic Imaging Report ---
Procedure: XRAY Chest 1v Reason for study: Shortness of breath. Comparison films: 04/06/2020. FINDINGS: Endotracheal tube and NG tube remain in place. There are multiple overlying artifacts. Extensive bilateral alveolar infiltrates are unchanged. Cardiac and mediastinal silhouette are within normal limits. CP angles are sharp. The bony thorax appear unremarkable. IMPRESSION: NO SIGNIFICANT CHANGE COMPARED TO PREVIOUS EXAM.
--- NOTE | 2020-04-07 15:09 | NUR ---
CASE MANAGEMENT:REVIEW 04/07/20 SI: COVID PNA. RESPIRATORY FAILURE~ INTUBATED 100.1 92 27 130/76 94% ON VENT SUPPORT W/100% FIO2 IS: IV SOLUMEDROL 40MG Q12 LEVEMIR SQ QHS LOVENOX SQ Q12 ZINC PO QD VIT C PO QD VIT D PO QD PEPCID PO QD : TELEMETRY STATUS DCP: FROM HOME PLAN: COMPLETED REMDESIVIR WEAN OXYGEN
--- NOTE | 2020-04-07 15:45 | NUR ---
NURSE NOTES: Spoke with Hasmukh Masters, who is next of kin, about his father progress, questions and concerns answered. transfer to [facility] is pending and awaiting for notification for room and ETA.
--- NOTE | 2020-04-07 16:45 | NUR ---
NURSE NOTES: Report given to ALLY Wyman from [facility] to transfer patient for echky, will be arriving within 1800.
--- NOTE | 2020-04-07 18:05 | NUR ---
NURSE NOTES: Dr. Mike called to inform the patient blood pressure decreased to 88/60, order obtained to infuse 500mls of normal saline.
--- NOTE | 2020-04-07 18:15 | NUR ---
NURSE NOTES: Transport team arrived at the unit to transfer patient to [facility], packet handed to transport team, belongings given to ALLY Wyman and taken along with patient, the belongings consist of a red iPhone, import manager, glasses, wallet with one hundred dollar bill, one twenty dollar bill, four five dollar bills, and seventeen singles bills, also clothing was given to the transport team.
--- NOTE | 2020-04-07 19:10 | NUR ---
NURSE NOTES: New propofol bottle started while the patient is being transported, the previous bottle remainder volume is 85.93ml, witnessed by charge nurse ALLY Reyes and documented at the pyxis. patient has been placed in [facility] and is being taken by the [facility] transport team.
[2020-04-07] MEDS ORDERED: D5NS 1000ml IV ONE (19:19)
[2020-04-07] MEDS ORDERED: Sterile Water Irrig 1000ml IRRIG ONE (19:19)
[2020-04-07] MEDS ORDERED: Dyna-Hex 2% Top Sol 2oz TOPIC SCH (20:00)
[2020-04-07] MEDS ORDERED: Levemir Flexpen SUBQ SCH (21:00)
--- NOTE | 2020-04-08 14:48 | Cardiology Progress Note ---
Subjective DATE OF SERVICE: Apr 07, 2020 Increasingly hypoxic despite bipap; remains intubated and mechanically ventilated. I spoke with his son and on the phone last nite. I also spoke with patient's nephew, who is an MD. They were updated on status, and made aware of further deterioration in oxygenation and need for ventilator support. They were also made aware of up to 50% mortality in such a circumstance. They were reassured that maximum available therapies have been, and will continue to be given. I have also initiated an ECMO consult with [facility], and spoke with director, Dr Suarez, and his preschool head teacher. They are considering transfer to [facility] today once admin/insurance issues completed. CXR (04/05) No change in bilateral infiltrates. Objective Last 24 Hour Vital Signs Date Time Temp Pulse Resp B/P (MAP) Pulse Ox O2 Delivery O2 Flow Rate FiO2 04/07/20 19:02 35 91/65 Mechanical Ventilator 100 04/07/20 18:00 24 88/60 Mechanical Ventilator 100 04/07/20 17:00 25 100/58 Mechanical Ventilator 100 04/07/20 16:21 20 104/64 Mechanical Ventilator 100 04/07/20 16:00 94 04/07/20 16:00 Mechanical Ventilator 04/07/20 16:00 100 04/07/20 16:00 24 113/64 Mechanical Ventilator 100 04/07/20 15:08 101 26 100 04/07/20 15:00 26 109/65 Mechanical Ventilator 100 HEENT: Orally intubated, Mechanically Ventilated, Thin secretions ET Tube RHYTHM: NSR LUNGS: bilateral rhonchi CARDIAC: regular rhythm, normal S1 and S2 ABDOMEN: normal bowel sounds, non tender, other - obese EXTREMITIES: normal range of motion, non-tender, trace edema Microbiology Date/Time Source Procedure Growth Status 04/07/20 13:00 Sputum Gram Stain - Final Resulted 04/07/20 13:00 Sputum Sputum Culture - Preliminary NORMAL UPPER RESPIRATORY MONI AT 24 ... Resulted Assessment/Plan Assessment/Plan Covid 19 PNA Respiratory failure Hypoxia Diabetes mellitus exacerbated by steroids No clinical signs of CHF; BNP normal range. Orders and POC updated - limiting use of pressors today with improved perfusion pressure. Continuing efforts to maximize oxygenation. Central access in place Await ECMO transfer from [facility] Family permitted to visit last nite due to severity of condition. Raul Mike MD Apr 08, 2020 14:48
--- NOTE | 2020-04-11 14:42 | Discharge Summary ---
Discharge Summary Discharge Summary _ Date of admission: 03/04/2503/29/2020 Date of discharge: 04/07/[address] Gleason History of Present Illness and Brief Hospital Course Mr. Guerrero Hall is a 59-year-old male with past medical history of diabetes mellitus, who was brought in by EMS for evaluation of shortness of breath x4 days. Patient reported testing positive for COVID-19 previously but was unable to recall the exact date. Patient was hypoxic on arrival and was placed on a nonrebreather. Patient was admitted to the hospital for further management. Patient tested positive for COVID-19 via PCR on 03/29/2020. Remdesivir and steroid were given to the patient. Due to worsening hypoxemia, patient was pl aced on a BiPAP. However, patient continued to deteriorate and was intubated on 04/06/2020. Blood cultures were negative for growth. Sputum culture showed normal upper respiratory claudia. On 04/07/2020, patient was transferred to [facility] for ECMO. Consultants: Cardiology Dr. Mike Infectious disease Dr. Kowalski Pulmonology Dr. Mclaughlin Discharge Condition Critical, on ventilator Final diagnoses COVID-19 pneumonia Hypoxemic respiratory failure Steroid-induced diabetes mellitus Lymphocytopenia Leukocytosis I have been assigned to dictate discharge summary for this account. I was not involved in the patient's management Piter Talavera Apr 11, 2020 14:42
== END 2020-04-07 19:20 | disposition short-term general hospital (02) | DRG 208 ==
LOC: EDBD 17:06 → EMR 17:32 → 2E 18:08 → EDBEDREQ 19:59 → 2E 04-02 06:18 → 2W 04-05 10:28 → ICU 04-06 14:30
PROC: 06HM33Z Insertion of Infusion Device into Right Femoral Vein, Percutaneous Approach (ICD-10-PCS; 2020-03-29)
PROC: XW033E5 Introduction of Remdesivir Anti-infective into Peripheral Vein, Percutaneous Approach, New Technology Group 5 (ICD-10-PCS; principal; 2020-03-30)
PROC: 5A09457 Assistance with Respiratory Ventilation, 24-96 Consecutive Hours, Continuous Positive Airway Pressure (ICD-10-PCS; 2020-04-04)
PROC: 5A1945Z Respiratory Ventilation, 24-96 Consecutive Hours (ICD-10-PCS; 2020-04-06)
PROC: 0BH17EZ Insertion of Endotracheal Airway into Trachea, Via Natural or Artificial Opening (ICD-10-PCS; 2020-04-06)
DX: U07.1 COVID-19 (principal); J12.82 Pneumonia due to coronavirus disease 2019; J96.01 Acute respiratory failure with hypoxia; E87.1 Hypo-osmolality and hyponatremia; E11.65 Type 2 diabetes mellitus with hyperglycemia; E86.1 Hypovolemia; E87.8 Other disorders of electrolyte and fluid balance, not elsewhere classified; I10 Essential (primary) hypertension; D72.810 Lymphocytopenia; T38.0X5A Adverse effect of glucocorticoids and synthetic analogues, initial encounter
CPT/HCPCS: 36415; 71045; 80053; 81003; 82248; 82728; 82803; 82962; 83036; 83605; 83615; 83690; 83735; 83880; 84478; 84484; 85007; 85025; 85379; 85610; 85730; 86140; 87040; 87070; 87205; 93005; 93970; 94002; 94003; 96365; 96367; 96372; 96375; 99291; J1815; J2250; J3490; J7030; S5561